=== PATIENT | female | born 1985 | race African-American/Black ===

== ENCOUNTER 2017-03-15 09:19 | Emergency (ER) | payer OTHER ==
[2017-03-15 09:22] VITALS: BP 139/90; PULSE 83; TEMP 97.8; BMI 33.0
[2017-03-15] MEDS ORDERED: IBUPROFEN 600 MG TABLET (FP) PO ONE (10:05)
--- NOTE | 2017-03-15 10:06 | PDOC ---
History of Present Illness - General Chief Complaint: Toothache Stated Complaint: TOOTHACHE Time Seen by Provider: 03/15/17 09:46 Exam Limitations: No Limitations - History of Present Illness Initial Comments: 03/15/17 10:02 c/o toothache upper right molar for one week no fever no chills no vomiting no allergies Timing/Duration: 24 hours Severity: mild Associated Symptoms: reports: denies symptoms Past History - Past Medical History Allergies/Adverse Reactions: Allergies Allergy/AdvReac Type Severity Reaction Status Date / Time No Known Drug Allergies Allergy Verified 03/15/17 09:22 Home Medications: Ambulatory Orders Penicillin V Potassium [Pen Vee K -] 250 mg PO QID #28 tablet 03/15/17 Anemia: No Asthma: No Cancer: No Cardiac Disorders: Yes CVA: No COPD: No CHF: No Dementia: No Diabetes: No GI Disorders: No Disorders: No HTN: No Hypercholesterolemia: No Liver Disease: No Seizures: No Thyroid Disease: No - Surgical History Abdominal Surgery: No Appendectomy: No Cardiac Surgery: No Cholecystectomy: No Lung Surgery: No Neurologic Surgery: No - Suicide/Smoking/Psychosocial Hx Smoking Status: No Smoking History: Never smoked Years of Tobacco Use: 2 Have you smoked in the past 12 months: Yes Number of Cigarettes Smoked Daily: 0 If you are a former smoker, when did you quit?: 12/16/13 'Breaking Loose' booklet given: 03/10/14 Hx Alcohol Use: No Drug/Substance Use Hx: No Substance Use Type: Alcohol Hx Substance Use Treatment: No Review of Systems - Review of Systems Able to Perform ROS?: Yes Is the patient limited Colombian proficient: No Constitutional: No: Symptoms Reported HEENTM: Yes: Symptoms Reported Respiratory: No: Symptoms reported Cardiac (ROS): No: Symptoms Reported ABD/GI: No: Symptoms Reported : No: Symptoms Reported Musculoskeletal: No: Symptoms Reported Integumentary: No: Symptoms Reported Neurological: No: Symptoms reported *Physical Exam - Vital Signs Last Vital Signs Temp Pulse Resp BP Pulse Ox 97.8 F 83 20 139/90 100 03/15/17 09:19 03/15/17 09:19 03/15/17 09:19 03/15/17 09:19 03/15/17 09:19 - Physical Exam General Appearance: Yes: Nourished, Appropriately Dressed HEENT: positive: EOMI, DAWNA, TMs Normal, Pharynx Normal, Other (right upper molar with redness, no abscess, ttt at the gum line ). negative: Scleral Icterus (R), Pharyngeal Erythema, Tonsillar Exudate, Tonsillar Erythema Neck: positive: Supple. negative: Lymphadenopathy (R), Lymphadenopathy (L) Respiratory/Chest: positive: Lungs Clear, Normal Breath Sounds. negative: Chest Tender Cardiovascular: positive: Regular Rhythm, Regular Rate Medical Decision Making - Medical Decision Making 03/15/17 16:42 cc: toothache pt states she has apt monday with the dentist will place on antibiotics warm salt water gargles motrin for pain soft foods all questions asked and answered pt agrees with the plan of care. *DC/Admit/Observation/Transfer Diagnosis at time of Disposition: Toothache - Discharge Dispostion Disposition: HOME Condition at time of disposition: Good - Prescriptions Prescriptions: Penicillin V Potassium [Pen Vee K -] 250 mg PO QID #28 tablet - Referrals Referrals: Charbel Gaytan MD [Primary Care Provider] - - Patient Instructions Additional Instructions: take the penvk as directed for 7 days gargle with warm salt water 4-5 times a day follow with your dentist - Post Discharge Activity
[2017-03-15] MEDS ORDERED: IBUPROFEN 400 MG TABLET (FP) PO ONE (10:10)
== END 2017-03-15 10:30 | disposition home or self-care (01) ==
LOC: JERFT 09:19
DX: K08.89 Other specified disorders of teeth and supporting structures (principal)
CPT/HCPCS: 99281-25

== ENCOUNTER 2017-12-21 10:12 | Emergency (ER) | payer OTHER ==
[2017-12-21 10:19] VITALS: BP 140/89; PULSE 89; TEMP 99.4; BMI 32.8
--- NOTE | 2017-12-21 11:21 | PDOC ---
History of Present Illness - General Chief Complaint: Pain, Acute Stated Complaint: HAND PAIN Time Seen by Provider: 12/21/17 11:06 History Source: Patient Exam Limitations: No Limitations - History of Present Illness Initial Comments: CHIEF COMPLAINT: 32 y/o afebrile female with PMH HTN c/o hand and foot pain for the past 2 days. HISTORY OF PRESENT ILLNESS: The patient states she was cleaning her house 3 days ago. The next day she woke up with joint pain in her hands and feet. SHe states she's taken tylenol and it goes away for a while. She has a headache because she's been crying from the pain. Vital signs on arrival are within normal limits. REVIEW OF SYSTEMS: GENERAL/CONSTITUTIONAL: No fever/chills. No weakness. No weight change. HEAD, EYES, EARS, NOSE AND THROAT: No change in vision. No ear pain or discharge. No sore throat. MUSCULOSKELETAL: +b/l hand and foot pain. No neck or back pain. SKIN: No rash or easy bruising. NEUROLOGIC: No headache, vertigo, loss of consciousness, or loss of sensation. PHYSICAL EXAM: GENERAL: The patient is awake, alert, and fully oriented, in no acute distress. SHe is well appearing and ambulatory. HEAD: Normal with no signs of trauma. ABDOMEN: Soft, non-distended, non-tender even to deep palpation, no hepatomegaly or splenomegaly, no masses. EXTREMITIES: Normal range of motion, no edema. Normal command center analyst strength b/l UEs. Full ROM of b/l hands, wrists and ankles. NEUROLOGICAL: Normal speech, normal gait. CN II-XII grossly intact. SKIN: Warm, dry, normal turgor, no rashes or lesions noted. Past History - Past Medical History Allergies/Adverse Reactions: Allergies Allergy/AdvReac Type Severity Reaction Status Date / Time No Known Drug Allergies Allergy Verified 11/14/17 18:12 Home Medications: Ambulatory Orders Losartan Potassium [Cozaar -] 25 mg PO DAILY 12/21/17 Warfarin Na [Coumadin] 2 mg PO ASDIR 12/21/17 Anemia: No Asthma: No Cancer: No Cardiac Disorders: Yes CVA: No COPD: No CHF: No Dementia: No Diabetes: No GI Disorders: No Disorders: No HTN: No Hypercholesterolemia: No Liver Disease: No Seizures: No Thyroid Disease: No - Surgical History Abdominal Surgery: No Appendectomy: No Cardiac Surgery: No Cholecystectomy: No Lung Surgery: No Neurologic Surgery: No - Suicide/Smoking/Psychosocial Hx Smoking Status: No Smoking History: Never smoked Years of Tobacco Use: 2 Have you smoked in the past 12 months: Yes Number of Cigarettes Smoked Daily: 0 If you are a former smoker, when did you quit?: 12/16/13 'Breaking Loose' booklet given: 03/10/14 Hx Alcohol Use: No Drug/Substance Use Hx: No Substance Use Type: Alcohol Hx Substance Use Treatment: No *Physical Exam - Vital Signs Last Vital Signs Temp Pulse Resp BP Pulse Ox 99.4 F 89 18 140/89 99 12/21/17 10:16 12/21/17 10:16 12/21/17 10:16 12/21/17 10:16 12/21/17 10:16 Medical Decision Making - Medical Decision Making A/P: 32 y/o female with b/l hand and foot pain. Suspect arthritis. Will check HCG and give PO ibuprofen. Suggested she take Ibuprofen every 6 hours with food and f/u with Dr. rae and hcg - negative Will give IM toradol The patient verbalizes understanding of all instructions, has no further questions and is awaiting discharge. *DC/Admit/Observation/Transfer Diagnosis at time of Disposition: Arthritis - Discharge Dispostion Disposition: HOME Condition at time of disposition: Good - Referrals Referrals: Charbel Rae MD [Primary Care Provider] - Call tomorrow Tomás Mathur MD [Staff Physician] - - Patient Instructions Printed Discharge Instructions: DI for Osteoarthritis Additional Instructions: Discharge Instructions: -You most likely have arthritis -Take over the counter 600mg of ibuprofen every 6 hours with food for pain/ swelling -Avoid repetitive movements -Follow up with Dr. Rae tomorrow - Post Discharge Activity
[2017-12-21] MEDS ORDERED: KETOROLAC TROMETHAMINE 60 MG/2 ML VIAL IM ONE (12:04)
[2017-12-21] MEDS ORDERED: KETOROLAC TROMETHAMINE 60 MG/2 ML VIAL ONE (12:12)
== END 2017-12-21 12:21 | disposition home or self-care (01) ==
LOC: JERFT 10:12
PROC: 3E0233Z Introduction of Anti-inflammatory into Muscle, Percutaneous Approach (ICD-10-PCS; principal; 2017-12-21)
DX: M19.90 Unspecified osteoarthritis, unspecified site (principal); I10 Essential (primary) hypertension; Z87.891 Personal history of nicotine dependence
CPT/HCPCS: 84703; 99281-25

== ENCOUNTER 2018-01-05 22:40 | Emergency (ER) | payer OTHER ==
--- NOTE | 2018-01-05 22:43 | PDOC ---
History of Present Illness - General Stated Complaint: ABD PAIN Time Seen by Provider: 01/05/18 22:43 - History of Present Illness Initial Comments: 01/05/18 23:12 Ms. Cadena is a 32 yo female w/ no significant pmh who presents for evaluation of 1 day history of return of yohannes hand and foot "needle like" pain. Patient reports she initially had this a few weeks ago and was told it was possibly arthritis and that symptoms resolved after a medicine (chart review revealed toradol) IM. Symptoms returned yesterday, prompting her presentation. Ms. Cadena further reports she has had increased urinary pain/pressure upon urination lately. The patient denies chest pain, shortness of breath, headache and dizziness. Denies fever, chills, nausea, vomit, diarrhea and constipation. Denies frequency , urgency and hematuria. Allergies: NKDA Past History - Past Medical History Allergies/Adverse Reactions: Allergies Allergy/AdvReac Type Severity Reaction Status Date / Time No Known Drug Allergies Allergy Verified 11/14/17 18:12 Home Medications: Ambulatory Orders Losartan Potassium [Cozaar -] 25 mg PO DAILY 12/21/17 Warfarin Na [Coumadin] 2 mg PO ASDIR 12/21/17 Anemia: No Asthma: No Cancer: No Cardiac Disorders: Yes CVA: No COPD: No CHF: No Dementia: No Diabetes: No GI Disorders: No Disorders: No HTN: No Hypercholesterolemia: No Liver Disease: No Seizures: No Thyroid Disease: No - Surgical History Abdominal Surgery: No Appendectomy: No Cardiac Surgery: No Cholecystectomy: No Lung Surgery: No Neurologic Surgery: No - Suicide/Smoking/Psychosocial Hx Smoking Status: No Smoking History: Never smoked Years of Tobacco Use: 2 Have you smoked in the past 12 months: Yes Number of Cigarettes Smoked Daily: 0 If you are a former smoker, when did you quit?: 12/16/13 'Breaking Loose' booklet given: 03/10/14 Hx Alcohol Use: No Drug/Substance Use Hx: No Substance Use Type: Alcohol Hx Substance Use Treatment: No Review of Systems - Review of Systems Comments:: 01/05/18 23:17 GENERAL/CONSTITUTIONAL: No fever or chills. No weakness. HEAD, EYES, EARS, NOSE AND THROAT: No change in vision. No ear pain or discharge. No sore throat. CARDIOVASCULAR: No chest pain or shortness of breath RESPIRATORY: No cough, wheezing, or hemoptysis. GASTROINTESTINAL: No nausea, vomiting, diarrhea or constipation. GENITOURINARY: No dysuria, frequency, or change in urination. MUSCULOSKELETAL: +Yohannes upper and lower extremity pain as described. No neck or back pain. SKIN: No rash NEUROLOGIC: No headache, vertigo, loss of consciousness, or change in strength/ sensation. ENDOCRINE: No increased thirst. No abnormal weight change HEMATOLOGIC/LYMPHATIC: No anemia, easy bleeding, or history of blood clots. ALLERGIC/IMMUNOLOGIC: No hives or skin allergy. *Physical Exam - Physical Exam Comments: 01/05/18 23:18 GENERAL: Awake, alert, and fully oriented, in no acute distress HEAD: No signs of trauma, normocephalic, atraumatic EYES: PERRLA, EOMI, sclera anicteric, conjunctiva clear ENT: Auricles normal inspection, hearing grossly normal, nares patent, oropharynx clear without exudates. Moist mucosa NECK: Normal ROM, supple, no lymphadenopathy, JVD, or masses LUNGS: No distress, speaks full sentences, clear to auscultation bilaterally HEART: Regular rate and rhythm, normal S1 and S2, no murmurs, rubs or gallops, peripheral pulses normal and equal bilaterally. ABDOMEN: Soft, nontender, normoactive bowel sounds. No guarding, no rebound. No masses EXTREMITIES: Normal inspection, Normal range of motion, no edema. No clubbing or cyanosis. NEUROLOGICAL: Cranial nerves II through XII grossly intact. Normal speech, normal gait, no focal sensorimotor deficits SKIN: Warm, Dry, normal turgor, no rashes or lesions noted. Medical Decision Making - Medical Decision Making 01/05/18 23:42 Ms. Cadena is a 32 yo female w/ pmh as described who presents for evaluation of non-specific extremity pain with urinary symptoms. CBC/CMP and urinary labs sent for evaluation. Patient given toradol for pain control. 01/05/18 23:44 Patient currently pending laboratory evaluation. Patient signed out to Dr. Mueller for further evaluation. *DC/Admit/Observation/Transfer Diagnosis at time of Disposition: Extremity pain Qualifiers: Extremity pain location: unspecified extremity Qualified Code(s): M79.609 - Pain in unspecified limb - Referrals Referrals: Lukas,Charbel N., MD [Primary Care Provider] - - Patient Instructions - Post Discharge Activity
[2018-01-05 22:45] VITALS: PULSE 86; TEMP 98.8; BMI 32.3
--- NOTE | 2018-01-05 23:01 | PDOC ---
Attending Attestation - HPI HPI: 01/05/18 23:52 The patient is a 32 year old female with a significant PMH of hypertension who presents to the emergency department with bilateral foot pain. The patient reports that she was seen in the ED for similar complaints. She states that she was given a shot for pain that helped her pain for about 2 days before her pain returned. The patient denies any sick contact. She states that her lmp was about 1 month ago. The patient endorses some pressure when urinating. She states that she has 7 year old twin boys at home (delivered via ). The patient denies any other symptoms. She denies any fever, chills, nausea, vomit, diarrhea,constipation or other urinary symptoms. She denies any chest pain, shortness of breath, headache and dizziness. The patient denies any other complaints. PCP: Dr. Gaytan - Physicial Exam PE: 01/05/18 23:52 GENERAL: Awake, alert, and fully oriented, in no acute distress HEAD: No signs of trauma EYES: PERRLA, EOMI, sclera anicteric, conjunctiva clear ENT: (+)earwax bilaterally. Auricles normal inspection, hearing grossly normal, nares patent, oropharynx clear without exudates. Moist mucosa NECK: Normal ROM, supple, no lymphadenopathy, JVD, or masses LUNGS: Breath sounds equal, clear to auscultation bilaterally. No wheezes, and no crackles HEART: Regular rate and rhythm, normal S1 and S2, no murmurs, rubs or gallops ABDOMEN: Soft, nontender, normoactive bowel sounds. No guarding, no rebound. No masses EXTREMITIES: Normal range of motion, no edema. No clubbing or cyanosis. No cords, erythema, or tenderness NEUROLOGICAL: Cranial nerves II through XII grossly intact. Normal speech, normal gait SKIN: Warm, Dry, normal turgor, no rashes or lesions noted. Documentation prepared by Faby Sparks, acting as pediatrician/medical doctor for Danuta Desouza MD. <Faby Sparks - Last Filed: 01/05/18 23:52> - Resident Resident Name: Oz Botello - ED Attending Attestation I have performed the following: I have examined & evaluated the patient, The case was reviewed & discussed with the resident, I agree w/resident's findings & plan - Medical Decision Making 01/06/18 19:37 Pt will be treated for UTI. 01/06/18 19:37 She is slightly anemic. <Danuta Desouza - Last Filed: 01/06/18 19:37>
[2018-01-05 23:35] LABS: URINE APPEARANCE CLEAR; URINE BILIRUBIN NEGATIVE (<2.0 mg/dL); URINE COLOR AMBER; URINE GLUCOSE (UA) NEGATIVE (NEGATIVE); URINE KETONE NEGATIVE (NEGATIVE); URINE LEUK ESTERASE NEGATIVE (NEGATIVE); URINE NITRITE POSITIVE (NEGATIVE); URINE UROBILINOGEN 4.0 E.U/dl mg/dL (0.2-1.0)
[2018-01-05 23:37] LABS: URINE PROTEIN 3+ (NEGATIVE)
[2018-01-05 23:42] LABS: EPI CELLS FEW /HPF (FEW); URINE MUCUS FEW
[2018-01-05] MEDS ORDERED: KETOROLAC TROMETHAMINE 15 MG/ML VIAL IM ONE (23:43)
[2018-01-06 00:52] LABS: BASO % 0.5 % (0-2.0); EOS % 1.7 % (0-4.5); HEMATOCRIT 28.7 % (32.4-45.2); HEMOGLOBIN 9.7 GM/dL (10.7-15.3); LYMPH % 15.8 % (8-40); MCHC 33.7 g/dl (32.0-36.0); MEAN CELL VOLUME 91.9 fl (80-96); MEAN PLT VOLUME 7.4 fl (7.5-11.1); MONO % 7.3 % (3.8-10.2); NEUT % 74.7 % (42.8-82.8); PLATELET COUNT 241 K/MM3 (134-434); RBC 3.12 M/mm3 (3.60-5.2); RDW 13.2 % (11.6-15.6)
[2018-01-06 01:47] LABS: ALBUMIN 3.4 g/dl (3.4-5.0); ALK PHOS 67 U/L (45-117); ANION GAP 7 MMOL/L (8-16); BILIRUBIN,TOTAL 0.2 mg/dL (0.2-1); BLOOD UREA NITROGEN 17 mg/dL (7-18); CALCIUM 8.5 mg/dL (8.5-10.1); CHLORIDE 105 mmol/L (98-107); CO2 24 mmol/L (21-32); CREATININE 0.9 mg/dL (0.55-1.3); GLUCOSE,RANDOM 96 mg/dL (74-106); POTASSIUM 3.4 mmol/L (3.5-5.1); SGOT/AST 26 U/L (15-37); SGPT/ALT 26 U/L (13-61); SODIUM 136 mmol/L (136-145); TOT PROT 9.2 g/dl (6.4-8.2)
--- NOTE | 2018-01-06 02:05 | PDOC ---
*Physical Exam - Vital Signs Last Vital Signs Temp Pulse Resp BP Pulse Ox 98.8 F 86 18 138/101 100 01/05/18 22:42 01/05/18 22:42 01/05/18 22:42 01/05/18 22:42 01/05/18 22:42 ED Treatment Course - LABORATORY CBC & Chemistry Diagram: 01/06/18 00:43 01/06/18 00:43 - ADDITIONAL ORDERS Additional order review: Laboratory Results 01/06/18 01/05/18 01/05/18 00:43 23:13 23:13 Sodium 136 Potassium 3.4 L Chloride 105 Carbon Dioxide 24 Anion Gap 7 L BUN 17 Creatinine 0.9 Creat Clearance w eGFR > 60 Random Glucose 96 Calcium 8.5 Total Bilirubin 0.2 AST 26 ALT 26 Alkaline Phosphatase 67 Total Protein 9.2 H Albumin 3.4 Urine Color Candis Urine Appearance Clear Urine pH 6.0 Ur Specific Delong 1.031 Urine Protein 3+ H D Urine Glucose (UA) Negative Urine Ketones Negative Urine Blood 3+ H Urine Nitrite Positive Urine Bilirubin Negative Urine Urobilinogen 4.0 e.u/dl H Ur Leukocyte Esterase Negative Urine WBC (Auto) 9 Urine RBC (Auto) 743 Ur Epithelial Cells Few Urine Mucus Few Urine HCG, Qual Negative 01/06/18 00:43 RBC 3.12 L MCV 91.9 MCHC 33.7 RDW 13.2 MPV 7.4 L D Neutrophils % 74.7 D Lymphocytes % 15.8 D Monocytes % 7.3 Eosinophils % 1.7 Basophils % 0.5 - Medications Given in the ED: ED Medications Discontinued Medications Generic Name Dose Route Start Last Admin Trade Name Freq PRN Reason Stop Dose Admin Ketorolac Tromethamine 15 mg 01/05/18 23:43 01/06/18 00:38 Toradol Injection - IM 01/05/18 23:44 15 mg ONCE ONE Administration Medical Decision Making - Medical Decision Making 32 year old female signed out to me with sharp right foot pain, atrauamtic, and no sign of deformity. Perera better with IM analgesics in our ER. UA demonstrating UTI. Will DC with Keflex and instructions to followup with her PCP. 01/06/18 02:11 *DC/Admit/Observation/Transfer Diagnosis at time of Disposition: Extremity pain Qualifiers: Extremity pain location: unspecified extremity Qualified Code(s): M79.609 - Pain in unspecified limb UTI (urinary tract infection) Qualifiers: Urinary tract infection type: acute cystitis Hematuria presence: without hematuria Qualified Code(s): N30.00 - Acute cystitis without hematuria - Discharge Dispostion Disposition: HOME Condition at time of disposition: Improved Decision to Admit order: No - Referrals Referrals: Charbel Gaytan MD [Primary Care Provider] - - Patient Instructions Printed Discharge Instructions: DI for Urinary Tract Infection (UTI) Additional Instructions: Please take your antibiotics as prescribed. Please use Tylenol and Motrin for you pain at home. Please follow up with your PCP on Monday. Please return to the ED if you have any new or worsening symptoms. - Post Discharge Activity
[2018-01-06] MEDS ORDERED: CEPHALEXIN MONOHYDRATE 500 MG CAPSULE (UD) PO ONE (02:06)
[2018-01-06] MEDS ORDERED: CEPHALEXIN MONOHYDRATE 500 MG CAPSULE (UD) ONE (02:14)
[2018-01-06 02:24] VITALS: BP 131/86
== END 2018-01-06 02:23 | disposition home or self-care (01) ==
LOC: JER 22:40
PROC: 3E0233Z Introduction of Anti-inflammatory into Muscle, Percutaneous Approach (ICD-10-PCS; principal; 2018-01-05)
DX: N30.00 Acute cystitis without hematuria (principal); M79.641 Pain in right hand; M79.671 Pain in right foot; M79.675 Pain in left toe(s); H61.23 Impacted cerumen, bilateral
CPT/HCPCS: 36415; 80053; 81003; 81015; 84443; 84703; 85025; 87086; 96372; 99281-25

== ENCOUNTER 2018-02-03 09:09 | Emergency (ER) | payer OTHER ==
[2018-02-03 09:57] VITALS: BMI 30.9
[2018-02-03] MEDS ORDERED: ACETAMINOPHEN 325 MG TABLET (FP) PO ONE (10:01)
[2018-02-03] MEDS ORDERED: LIDOCAINE 5% TOPICAL PATCH TP ONE (10:01)
[2018-02-03] MEDS ORDERED: morphine CARPU-JECT 4 MG/1 ML DISP.SYRIN IVPUSH ONE (10:30)
[2018-02-03] MEDS ORDERED: CYCLOBENZAPRINE HCL 5 MG TABLET PO ONE (10:30)
--- NOTE | 2018-02-03 10:32 | PDOC ---
History of Present Illness - General Chief Complaint: Back Pain Stated Complaint: BACK PAIN Time Seen by Provider: 02/03/18 09:27 History Source: Patient Exam Limitations: No Limitations - History of Present Illness Initial Comments: 02/03/18 10:50 [place] 32 YOF with h/o Valvular heart disease, antiphospholipid syndrome, DVT, on coumadin, Lambert Eaton syndrome, HTN presenting with upper Back pain and hip/thigh pains x 2 days, beginning yesterday morning. No trauma. She has been bending down and cleaning the house while caring for her twins x 2 weeks. Went to PMD yesterday. Dr Gaytan, told to take tylenol with minimal relief. +sore throat, dry mouth, but tolerating PO intake. No cough or congestion, f/c. No paresthesias. +weakness in her legs 2/2 pain. No urinary retention or incontinence, no AP, n/v/d, sob, cp, syncope. No falls or trauma. No recent infections or prodromal sx, no urinary sx, fever or chills. Never had similar symptoms previously No etoh, smoking or drugs PSH: C sections. 02/03/18 14:48 Past History - Past Medical History Allergies/Adverse Reactions: Allergies Allergy/AdvReac Type Severity Reaction Status Date / Time No Known Drug Allergies Allergy Verified 02/03/18 09:43 Home Medications: Ambulatory Orders Losartan Potassium [Cozaar -] 25 mg PO DAILY 12/21/17 Warfarin Na [Coumadin] 2 mg PO ASDIR 12/21/17 Cephalexin [Keflex] 500 mg PO TID #21 capsule 01/06/18 Cephalexin Monohydrate [Keflex -] 500 mg PO BID #14 capsule 02/03/18 Lidocaine 5% Patch [Lidoderm Patch -] 1 patch TP DAILY PRN #7 patch 02/03/18 Anemia: No Asthma: No Cancer: No Cardiac Disorders: Yes CVA: No COPD: No CHF: No Dementia: No Diabetes: No GI Disorders: No Disorders: No HTN: No Hypercholesterolemia: No Liver Disease: No Seizures: No Thyroid Disease: No - Surgical History Abdominal Surgery: No Appendectomy: No Cardiac Surgery: No Cholecystectomy: No Lung Surgery: No Neurologic Surgery: No - Suicide/Smoking/Psychosocial Hx Smoking Status: No Smoking History: Never smoked Years of Tobacco Use: 2 Have you smoked in the past 12 months: Yes Number of Cigarettes Smoked Daily: 0 If you are a former smoker, when did you quit?: 12/16/13 Information on smoking cessation initiated: No 'Breaking Loose' booklet given: 03/10/14 Hx Alcohol Use: No Drug/Substance Use Hx: No Substance Use Type: Alcohol Hx Substance Use Treatment: No Review of Systems - Review of Systems Able to Perform ROS?: Yes Comments:: 02/03/18 10:44 GENERAL/CONSTITUTIONAL: No fever or chills. No weakness. no sweats. HEAD, EYES, EARS, NOSE AND THROAT: No change in vision or hearing. No ear pain or discharge. +sore throat, +dry mouth. No mouth pain. No difficulty swallowing. No congestion. CARDIOVASCULAR: No chest pain or palpitations, syncope or edema. RESPIRATORY: No SOB, cough, wheezing, or hemoptysis. GASTROINTESTINAL No nausea/vomiting. No diarrhea or constipation. No bloody stools. GENITOURINARY: No hematuria, dysuria, frequency, urgency or other changes. MUSCULOSKELETAL: +joint and pain. +neck or back pain. +leg/knee pain. SKIN: No rash or changes in skin color or lesions. NEUROLOGIC: No headache, vertigo, loss of consciousness, or change in strength/ sensation. No gait instability. HEMATOLOGIC/LYMPHATIC: No anemia, easy bruising/bleeding. ALLERGIC/IMMUNOLOGIC: No allergies All other systems reviewed and negative, or as documented in HPI. *Physical Exam - Vital Signs Last Vital Signs Temp Pulse Resp BP Pulse Ox 117 H 18 125/90 100 02/03/18 09:09 02/03/18 09:09 02/03/18 09:09 02/03/18 09:09 - Physical Exam Comments: 02/03/18 10:45 General: awake and alert, mild distress 2/2 pain. HEENT: NCAT, PERRL, EOMI, baseline proptotic eyes, clear conjunctiva, anicteric , dry mucus membranes, clear oropharynx, no oral lesions.. normal uvula, normal phonation. no tonsillar hypertrophy or erythema. Neck: neck supple, FROM. +cervical TTP, paravertebral. Resp: CTAB, normal and even respirations, no respiratory distress CVS: tachycardic. no murmurs, 2+ peripheral pulses throughout, no peripheral edema Abdomen: soft, NTND, no peritoneal signs. Back: nontender, normal inspection and ROM MSK: no edema, OLIVER x4. No clubbing or cyanosis. normal bulk and tone. + cervical neck TTP, bilateral scapula and upper thoracic back/cervical region. + bilateral hip tenderness, left knee ttp, no crepitus or overlying skin changes, ROM limited 2/2 pain. Neuro: alert, oriented appropriately; no focal neurologic deficits. 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 SILT grossly normal. Skin: warm and well perfused, cap refill <2 sec, normal color 02/03/18 14:49 02/03/18 15:06 ED Treatment Course - LABORATORY CBC & Chemistry Diagram: 02/03/18 11:40 02/03/18 11:40 - RADIOLOGY Radiology Studies Ordered: Category Date Time Status CERVICAL SPINE CT W/O CONTR [CT] Stat CT Scan 02/03/18 10:29 Ordered CHEST PA & LAT [RAD] Stat Radiology 02/03/18 10:29 Ordered KNEE 3 POS-LEFT [RAD] Stat Radiology 02/03/18 10:31 Ordered PELVIS [RAD] Stat Radiology 02/03/18 10:31 Ordered Medical Decision Making - Medical Decision Making 02/03/18 10:50 Vitals noted for tachycardia noted, likely 2/2 pain. no fever rectally, otherwise normal and normotensive. DDx back pain: back strain, lumbago, spinal stenosis. Muscle spasm. Cervical and Lumbar radiculopathy. Cervical strain. Msk strain. Clinically doubt based on exam and clinical history: cord compression or cauda equina, with low suspicion and no red flag sx such as fevers, IVDU, lumbar procedures, urinary/stool incontinence/retention, neurologic deficits or changes. imaging of pelvis and hip, CT c spine looking for spinal stenosis or degenerative disease, due to significant pain. basic labs and lytes wnl, remarkable for elevated Cr to 1.7, changed from prior. INR therapeutic ~3.7. Xray pelvis, hip and left knee negative for bony abnormalities. strep test_Positive, given dose of Bicillin IM shot. interventions in the ED: analgesia, IVF, topical lidocaine and muscle relaxer and reassessment. UA with UTI, treat with keflex x 7 days, abx sent to pharmacy. minimal urinary sx, but positive, f/u urine cultures. vitals improved, tachycardia improving with adequate hydration, aurelia PO without difficulty. ambulatory w/o difficulties. spoke with Dr. Gaytan at 230pm, discussed results including abnormal Cr. amenable to discharge, otc tylenol only; no muscle relaxants, opioids or nsaids due to medical history and now elevated Cr, which can be followed and rechecked by pmd in 2 days. Pt to be discharged in stable condition. Patient and family made aware of impression and plan, return precautions discussed (including but not limited to worsening pain or symptoms), fevers, or signs of infection, chest pain, respiratory distress, inability to tolerate oral intake, dehydration, syncope, or neurologic changes). Follow up with PMD as recommended, follow up information provided, take medications as instructed for duration of time. continue with supportive care, avoid triggers and precipitants. All questions answered to patient's satisfaction and expressed understanding and comfort with this. 02/04/18 09:30 *DC/Admit/Observation/Transfer Diagnosis at time of Disposition: Muscle pain, Creatinine elevation, UTI (urinary tract infection), Strep pharyngitis - Discharge Dispostion Disposition: HOME Condition at time of disposition: Good Decision to Admit order: No - Prescriptions Prescriptions: Cephalexin Monohydrate [Keflex -] 500 mg PO BID #14 capsule Lidocaine 5% Patch [Lidoderm Patch -] 1 patch TP DAILY PRN #7 patch PRN Reason: Muscle Spasms - Referrals Referrals: Charbel Gaytan MD [Primary Care Provider] - - Patient Instructions Printed Discharge Instructions: DI for Strep Throat, DI for Urinary Tract Infection (UTI), DI for Muscle Strain, DI for Cervical Muscle Strain, DI for Viral Pharyngitis, Renal (Kidney) Disease Diet -- For People Not on Dialysis Additional Instructions: your imaging results are normal including X rays your lab work revealed elevated kidney function, which is changed from prior. stay well hydrated and follow up check with your primary doctor, Dr. Gaytan, who we spoke to over the phone. take tylenol every 6 hours as needed for pain. lidoderm patch to the area of pain as needed you also have a urinary tract infection, take Keflex twice a day x 7 days with food. return if worsening symptoms including pain, signs of infection, chest pain, respiratory distress, vomiting, neurologic changes or passing out. minimize significant movements or physical activity or strenuous movements. avoid motrin/aleve/advil as that can cause kidney failure and your kidney function needs recheck as outpatient you also have strep throat, take respiratory precautions, wash your hands and stay well hydrated, salt water gargles and humidifier. wear mask, minimize spreading of infection. follow up with Dr Gaytan on Monday 02/05 - Post Discharge Activity Forms/Work/School Notes: Back to Work
[2018-02-03] MEDS ORDERED: SODIUM CHLORIDE 0.9% 500 ML INFUS.BAG IV ONE ×2 (10:33→15:28)
[2018-02-03] MEDS ORDERED: morphine SULFATE 4 MG/ML VIAL ONE (11:20)
[2018-02-03] MEDS ORDERED: CYCLOBENZAPRINE HCL 10 MG TABLET (FP) ONE (11:20)
[2018-02-03] MEDS ORDERED: ACETAMINOPHEN 325 MG TABLET (FP) ONE (11:20)
[2018-02-03] MEDS ORDERED: LIDOCAINE 5% TOPICAL PATCH ONE (11:21)
[2018-02-03 12:03] LABS: BASO % 0.2 % (0-2.0); HEMATOCRIT 27.2 % (32.4-45.2); INR 3.77 (0.83-1.09); MCH 30.1 pg (25.7-33.7); MCHC 32.9 g/dl (32.0-36.0); MEAN CELL VOLUME 91.5 fl (80-96); MEAN PLT VOLUME 7.6 fl (7.5-11.1); MONO % 6.1 % (3.8-10.2); NEUT % 82.7 % (42.8-82.8); PLATELET COUNT 247 K/MM3 (134-434); PROTHROMBIN TIME (PATIENT) 45.1 SEC (9.7-13.0); RBC 2.98 M/mm3 (3.60-5.2); RDW 13.5 % (11.6-15.6); WHITE BLOOD COUNT 7.6 K/mm3 (4.0-10.0)
[2018-02-03 13:02] LABS: ALBUMIN 2.8 g/dl (3.4-5.0); ALK PHOS 61 U/L (45-117); ANION GAP 10 MMOL/L (8-16); BILIRUBIN,TOTAL 0.4 mg/dL (0.2-1); BLOOD UREA NITROGEN 37 mg/dL (7-18); CALCIUM 8.3 mg/dL (8.5-10.1); CHLORIDE 104 mmol/L (98-107); CO2 22 mmol/L (21-32); CREATININE 1.7 mg/dL (0.55-1.3); GLUCOSE,RANDOM 92 mg/dL (74-106); POTASSIUM 3.6 mmol/L (3.5-5.1); SGOT/AST 16 U/L (15-37); SGPT/ALT 11 U/L (13-61); SODIUM 136 mmol/L (136-145); TOT PROT 8.7 g/dl (6.4-8.2)
[2018-02-03 14:55] LABS: URINE APPEARANCE CLOUDY; URINE BILIRUBIN NEGATIVE (<2.0 mg/dL); URINE COLOR DKYELLOW; URINE GLUCOSE (UA) NEGATIVE (NEGATIVE); URINE KETONE TRACE (NEGATIVE); URINE LEUK ESTERASE TRACE (NEGATIVE); URINE NITRITE NEGATIVE (NEGATIVE); URINE PROTEIN 2+ (NEGATIVE); URINE UROBILINOGEN NEGATIVE mg/dL (0.2-1.0)
[2018-02-03 15:10] LABS: EPI CELLS MANY /HPF (FEW); GRANULAR CASTS 4 /lpf; URINE BACTERIA RARE /hpf (NONE SEEN); URINE HYALINE CAST 6 /lpf
[2018-02-03 15:18] VITALS: TEMP 98.7
[2018-02-03] MEDS ORDERED: CEPHALEXIN MONOHYDRATE 500 MG CAPSULE (UD) PO ONE (15:31)
[2018-02-03 16:33] VITALS: BP 117/84; PULSE 102
[2018-02-03] MEDS ORDERED: CEPHALEXIN MONOHYDRATE 500 MG CAPSULE (UD) ONE (16:55)
[2018-02-03] MEDS ORDERED: PENICILLIN G BENZATHINE 1,200,000 UNIT/2 ML PFS IM ONE (17:00)
[2018-02-03] MEDS ORDERED: PENICILLIN G BENZATHINE 2,400,000 UNIT/4 ML PFS ONE (17:17)
[2018-02-03] MEDS ORDERED: LIDOCAINE PATCH REMOVAL MC SCH (22:00)
== END 2018-02-03 19:20 | disposition home or self-care (01) ==
LOC: JER 09:09
DX: J02.0 Streptococcal pharyngitis (principal); B95.0 Streptococcus, group A, as the cause of diseases classified elsewhere; M79.10 Myalgia, unspecified site; R74.8 Abnormal levels of other serum enzymes
CPT/HCPCS: 36415; 71046-TC-FY; 72170-TC-FY; 73562-TC-LT-FY; 80053; 81003; 81015; 84703; 85025; 85610; 87070; 87430; 96372; 99282-25

== ENCOUNTER 2020-04-03 02:11 | Emergency (ER) | payer OTHER ==
[2020-04-03 02:41] VITALS: BMI 29.2
[2020-04-03] MEDS ORDERED: ACETAMINOPHEN 1000 MG/100 ML VIAL (NON FORMULARY) IVPB ONE (03:45)
[2020-04-03] MEDS ORDERED: LACTATED RINGERS SOLUTION 1,000 ML/1,000 ML INFUS.BAG IV STA (03:45)
[2020-04-03] MEDS ORDERED: ACETAMINOPHEN INJECTION 100 ML IVPB ONE (03:55)
[2020-04-03 04:07] LABS: HEMATOCRIT 28.8 % (32.4-45.2); HEMOGLOBIN 9.7 GM/dL (10.7-15.3); LYMPH % 10.9 % (8-40); MCH 30.9 pg (25.7-33.7); MCHC 33.5 g/dl (32.0-36.0); MEAN CELL VOLUME 92.3 fl (80-96); MEAN PLT VOLUME 7.8 fl (7.5-11.1); MONO % 5.9 % (3.8-10.2); NEUT % 79.2 % (42.8-82.8); PLATELET COUNT 363 K/MM3 (134-434); RBC 3.12 M/mm3 (3.60-5.2); RDW 12.5 % (11.6-15.6)
[2020-04-03 04:20] LABS: INR 3.85 (0.83-1.09); PROTHROMBIN TIME (PATIENT) 45.5 SEC (9.7-13.0)
[2020-04-03 04:22] LABS: ACTIVATED PTT 34.7 SECONDS (25.2-36.5)
[2020-04-03 04:26] LABS: POTASSIUM 3.6 mmol/L (3.5-5.1)
[2020-04-03 04:29] LABS: BLOOD UREA NITROGEN 27.9 mg/dL (7-18); CALCIUM 8.8 mg/dL (8.5-10.1)
[2020-04-03 04:32] LABS: CREATININE 1.4 mg/dL (0.55-1.3)
[2020-04-03 04:34] LABS: BILIRUBIN,TOTAL 0.3 mg/dL (0.2-1); TOT PROT 7.5 g/dl (6.4-8.2)
[2020-04-03] MEDS ORDERED: KETOROLAC TROMETHAMINE 30 MG/1 ML VIAL IVPUSH ONE (04:39)
[2020-04-03] MEDS ORDERED: KETOROLAC TROMETHAMINE 15 MG/ML VIAL ONE (04:41)
[2020-04-03 04:54] LABS: THROAT:GRP A STREP ANTIGEN Positive (Negative)
[2020-04-03] MEDS ORDERED: CYCLOBENZAPRINE HCL 5 MG TABLET PO ONE (05:15)
[2020-04-03] MEDS ORDERED: guaiFENesin 200 MG/10 ML 10 ML UNIT-DOSE CUPS PO ONE (06:07)
[2020-04-03] MEDS ORDERED: guaiFENesin/D-METHORPHAN HB 10 ML UNIT-DOSE CUPS ONE (06:09)
[2020-04-03 06:26] VITALS: BP 127/99; PULSE 103; TEMP 98.3
== END 2020-04-03 06:44 | disposition home or self-care (01) ==
LOC: JER 02:11
PROC: 3E033NZ Introduction of Analgesics, Hypnotics, Sedatives into Peripheral Vein, Percutaneous Approach (ICD-10-PCS; principal; 2020-04-03)
PROC: 3E0333Z Introduction of Anti-inflammatory into Peripheral Vein, Percutaneous Approach (ICD-10-PCS; 2020-04-03)
PROC: 3E0337Z Introduction of Electrolytic and Water Balance Substance into Peripheral Vein, Percutaneous Approach (ICD-10-PCS; 2020-04-03)
DX: J02.0 Streptococcal pharyngitis (principal)
CPT/HCPCS: 36415; 80053; 84703; 85025; 85610; 85730; 87880; 93005; 93010; 99285-25; C9803; J0131; U0003

== ENCOUNTER 2020-07-21 15:56 | Observation (INO) | payer OTHER ==
[2020-07-21 18:39] LABS: BASO % 0.7 % (0-2.0); EOS % 1.8 % (0-4.5); HEMATOCRIT 27.5 % (32.4-45.2); HEMOGLOBIN 9.2 GM/dL (10.7-15.3); LYMPH % 21.4 % (8-40); MCH 31.8 pg (25.7-33.7); MCHC 33.4 g/dl (32.0-36.0); MEAN CELL VOLUME 95.1 fl (80-96); MONO % 6.3 % (3.8-10.2); NEUT % 69.8 % (42.8-82.8); PLATELET COUNT 273 K/MM3 (134-434); RDW 13.7 % (11.6-15.6); WHITE BLOOD COUNT 3.8 K/mm3 (4.0-10.0)
[2020-07-21 18:48] LABS: EPI CELLS >36 /uL (0-25.1); HYALINE CASTS 5 /uL (0-3.1); URINE APPEARANCE CLEAR; URINE BACTERIA 298 /uL (0-1359); URINE BILIRUBIN NEGATIVE (NEGATIVE); URINE COLOR YELLOW; URINE GLUCOSE (UA) NEGATIVE (NEGATIVE); URINE KETONE NEGATIVE (NEGATIVE); URINE LEUK ESTERASE NEGATIVE (NEGATIVE); URINE NITRITE NEGATIVE (NEGATIVE); URINE PROTEIN 3+ (NEGATIVE); URINE RBC 737 /uL (0-23.9); URINE UROBILINOGEN 0.2 mg/dL (0.2-1.0)
[2020-07-21 18:57] LABS: POTASSIUM 3.3 mmol/L (3.5-5.1)
[2020-07-21 18:59] LABS: ALBUMIN 2.6 g/dl (3.4-5.0); BLOOD UREA NITROGEN 28.3 mg/dL (7-18); CALCIUM 8.2 mg/dL (8.5-10.1)
[2020-07-21 19:02] LABS: CREATININE 0.8 mg/dL (0.55-1.3)
[2020-07-21 19:04] LABS: BILIRUBIN,TOTAL 0.2 mg/dL (0.2-1); TOT PROT 5.6 g/dl (6.4-8.2)
[2020-07-22] MEDS ORDERED: POTASSIUM CHLORIDE TABS 20 MEQ TABLET.ER (FP) PO ONE ×2 (00:20→04:45)
[2020-07-22 04:28] VITALS: BMI 28.3
[2020-07-22 08:44] LABS: BASO % 0.5 % (0-2.0); EOS % 1.7 % (0-4.5); HEMATOCRIT 26.5 % (32.4-45.2); LYMPH % 31.8 % (8-40); MCH 32.2 pg (25.7-33.7); MCHC 33.9 g/dl (32.0-36.0); MEAN CELL VOLUME 94.8 fl (80-96); MONO % 7.1 % (3.8-10.2); NEUT % 58.9 % (42.8-82.8); PLATELET COUNT 224 K/MM3 (134-434); RBC 2.79 M/mm3 (3.60-5.2); RDW 13.7 % (11.6-15.6); WHITE BLOOD COUNT 2.9 K/mm3 (4.0-10.0)
[2020-07-22 08:47] LABS: PROTHROMBIN TIME (PATIENT) 76.8 SEC (9.7-13.0)
[2020-07-22 09:00] LABS: INR 6.71 (0.83-1.09)
[2020-07-22 09:09] LABS: ALBUMIN 2.3 g/dl (3.4-5.0); BLOOD UREA NITROGEN 23.2 mg/dL (7-18); CALCIUM 8.2 mg/dL (8.5-10.1)
[2020-07-22 09:11] LABS: CREATININE 0.8 mg/dL (0.55-1.3)
[2020-07-22 09:12] LABS: BILIRUBIN,TOTAL 0.2 mg/dL (0.2-1)
[2020-07-22] MEDS ORDERED: MYCOPHENOLATE MOFETIL 500 MG TABLET PO SCH (10:00)
[2020-07-22] MEDS ORDERED: WARFARIN NA 2 MG TABLET PO SCH (10:00)
[2020-07-22] MEDS ORDERED: predniSONE 10 MG TABLET (UD) PO SCH (10:00)
[2020-07-22] MEDS: amLODIPine BESYLATE 5 MG TABLET (FP) PO SCH (10:50)
[2020-07-22] MEDS: CARVEDILOL 6.25 MG TABLET (FP) PO SCH (10:50)
[2020-07-22] MEDS: ASPIRIN 81 MG CHEWABLE TABLETS PO SCH (10:50)
[2020-07-22] MEDS: MYCOPHENOLATE MOFETIL 500 MG TABLET PO SCH ×2 (11:57→22:05)
[2020-07-22] MEDS ORDERED: ACETAMINOPHEN 325 MG TABLET (FP) PO PRN (12:18)
[2020-07-22] MEDS ORDERED: predniSONE 20 MG TABLET (UD) PO ONE (12:30)
[2020-07-22 16:25] LABS: POTASSIUM 3.7 mmol/L (3.5-5.1)
[2020-07-22 16:28] LABS: ALBUMIN 2.6 g/dl (3.4-5.0); BLOOD UREA NITROGEN 21.7 mg/dL (7-18); CALCIUM 8.3 mg/dL (8.5-10.1)
[2020-07-22 16:32] LABS: CREATININE 0.8 mg/dL (0.55-1.3)
[2020-07-22 16:34] LABS: BILIRUBIN,TOTAL 0.1 mg/dL (0.2-1); TOT PROT 5.4 g/dl (6.4-8.2)
[2020-07-22] MEDS ORDERED: WARFARIN NA 5 MG TABLET PO SCH (18:00)
[2020-07-23 08:32] LABS: PROTHROMBIN TIME (PATIENT) 50.6 SEC (9.7-13.0)
[2020-07-23 09:01] LABS: INR 4.29 (0.83-1.09)
[2020-07-23] MEDS ORDERED: PT OWN MED DRAWER 7, Y5N ONE ×3 (09:05→10:47)
[2020-07-23] MEDS: ASPIRIN 81 MG CHEWABLE TABLETS PO SCH (09:22)
[2020-07-23] MEDS: CARVEDILOL 6.25 MG TABLET (FP) PO SCH (09:22)
[2020-07-23] MEDS: amLODIPine BESYLATE 5 MG TABLET (FP) PO SCH (09:38)
[2020-07-23] MEDS ORDERED: predniSONE 20 MG TABLET (UD) PO SCH (10:00)
[2020-07-23] MEDS: MYCOPHENOLATE MOFETIL 500 MG TABLET PO SCH (10:50)
[2020-07-23 13:52] VITALS: BP 114/70; PULSE 78; TEMP 98.6
== END 2020-07-23 17:20 | disposition home or self-care (01) ==
LOC: JER 15:56 → UNDOADMOB 16:09 → JERBED 16:09 → INTOOBSV 16:09 → J6S 07-22 01:59 → JERBED 07-22 01:59 → J6S 07-22 15:31
PROVIDERS: ADMIT Internal Medicine; ATTEND Internal Medicine
DX: I12.9 Hypertensive chronic kidney disease with stage 1 through stage 4 chronic kidney disease, or unspecified chronic kidney disease (principal); M32.9 Systemic lupus erythematosus, unspecified; Z79.01 Long term (current) use of anticoagulants; I10 Essential (primary) hypertension; D64.9 Anemia, unspecified; R80.9 Proteinuria, unspecified; D68.61 Antiphospholipid syndrome; N18.9 Chronic kidney disease, unspecified
CPT/HCPCS: 36415; 71046-TC-FY; 80053; 81003; 84703; 85025; 85610; 93005; 93010; 99285-25; C9803; G0378; J7517; U0003; U0005

== ENCOUNTER 2022-02-10 10:00 | Inpatient (IN) | payer OTHER ==
[2022-02-10 10:17] VITALS: BMI 20.1
[2022-02-10] MEDS ORDERED: FAMOTIDINE 20 MG/50 ML IVPB 20 MG/50 ML MG IVPB ONE ×2 (10:57→11:36)
[2022-02-10] MEDS ORDERED: ACETAMINOPHEN 1000 MG/100 ML BAG IVPB ONE (10:57)
[2022-02-10] MEDS ORDERED: ONDANSETRON 4 MG/2 ML VIAL IVPUSH ONE (10:57)
[2022-02-10] MEDS ORDERED: SODIUM CHLORIDE 1,000 ML IV STA (10:57)
[2022-02-10] MEDS ORDERED: MAG HYDROX/AL HYDROX/SIMETH -MYLANTA- ORAL SUSPENSION PO ONE (10:59)
[2022-02-10] MEDS ORDERED: ONDANSETRON 4 MG/2 ML VIAL ONE (11:28)
[2022-02-10] MEDS ORDERED: MAG HYDROX/AL HYDROX/SIMETH 30 ML UNIT-DOSE CUP ONE (11:28)
[2022-02-10] MEDS ORDERED: ACETAMINOPHEN INJECTION 100 ML IVPB ONE (11:28)
[2022-02-10 11:54] LABS: BASO % 0.9 % (0-2.0); EOS % 2.3 % (0-4.5); HEMATOCRIT 21.7 % (32.4-45.2); LYMPH % 18.5 % (8-40); MEAN CELL VOLUME 90.6 fl (80-96); MONO % 14.3 % (3.8-10.2); PLATELET COUNT 235 10^3/uL (134-434); RBC 2.39 M/mm3 (3.60-5.2); RDW 15.4 % (11.6-15.6); WHITE BLOOD COUNT 2.6 K/mm3 (4.0-10.0)
[2022-02-10 11:57] LABS: INR 1.03 (0.83-1.09); PROTHROMBIN TIME (PATIENT) 11.9 SEC (9.7-13.0)
[2022-02-10 12:04] LABS: HCG,QUALITATIVE URINE Negative
[2022-02-10 12:08] LABS: EPI CELLS >36 /uL (0-25.1); HYALINE CASTS 1 /uL (0-3.1); URINE APPEARANCE CLEAR; URINE BACTERIA 1244 /uL (0-1359); URINE BILIRUBIN NEGATIVE (NEGATIVE); URINE COLOR YELLOW; URINE GLUCOSE (UA) NEGATIVE (NEGATIVE); URINE KETONE NEGATIVE (NEGATIVE); URINE LEUK ESTERASE TRACE (NEGATIVE); URINE NITRITE NEGATIVE (NEGATIVE); URINE PROTEIN 3+ (NEGATIVE); URINE RBC 51 /uL (0-23.9); URINE UROBILINOGEN 0.2 mg/dL (0.2-1.0); URINE WBC 63 /uL (0-25.8)
[2022-02-10 12:18] LABS: HEMOGLOBIN 6.9 GM/dL (10.7-15.3)
[2022-02-10 12:19] LABS: CHLORIDE 109 mmol/L (98-107); SODIUM 143 mmol/L (136-145)
[2022-02-10 12:22] LABS: ALBUMIN 3.1 g/dl (3.4-5.0); ANION GAP 10 MMOL/L (8-16); BLOOD UREA NITROGEN 48.9 mg/dL (7-18); CALCIUM 8.6 mg/dL (8.5-10.1); CO2 24 mmol/L (21-32); LIPASE 339 U/L (73-393)
[2022-02-10 12:23] LABS: GLUCOSE,RANDOM 90 mg/dL (74-106)
[2022-02-10 12:25] LABS: CREATININE 4.6 mg/dL (0.55-1.3); SGOT/AST 11 U/L (15-37); SGPT/ALT 10 U/L (13-61)
[2022-02-10 12:27] LABS: BILIRUBIN,TOTAL 0.2 mg/dL (0.2-1); TOT PROT 6.1 g/dl (6.4-8.2)
[2022-02-10 12:28] LABS: ALK PHOS 41 U/L (45-117)
[2022-02-10] MEDS ORDERED: DEXTROSE 5%-0.45% SALINE 1,000 ML IV SCH (19:30)
[2022-02-10] MEDS ORDERED: amLODIPine BESYLATE 5 MG TABLET (FP) ONE (21:00)
[2022-02-10] MEDS: amLODIPine BESYLATE 5 MG TABLET (FP) PO SCH (21:48)
[2022-02-10] MEDS ORDERED: CARVEDILOL 6.25 MG TABLET (FP) ONE (23:14)
[2022-02-10] MEDS ORDERED: HEPARIN NA (PORCINE) 5,000 UNITS/ML 1ML VIAL ONE (23:14)
[2022-02-10] MEDS: CARVEDILOL 6.25 MG TABLET (FP) PO SCH (23:25)
[2022-02-10] MEDS: HEPARIN NA (PORCINE) 5,000 UNITS/ML 1ML VIAL SQ SCH (23:25)
[2022-02-11] MEDS ORDERED: amLODIPine BESYLATE 2.5 MG TABLET (FP) PO ONE (00:01)
[2022-02-11] MEDS ORDERED: amLODIPine BESYLATE 2.5 MG TABLET (FP) ONE (00:04)
[2022-02-11 08:19] LABS: BASO % 0.6 % (0-2.0); EOS % 2.8 % (0-4.5); HEMATOCRIT 24.9 % (32.4-45.2); HEMOGLOBIN 8.6 GM/dL (10.7-15.3); LYMPH % 20.8 % (8-40); MCH 29.6 pg (25.7-33.7); MCHC 34.5 g/dl (32.0-36.0); MEAN CELL VOLUME 85.7 fl (80-96); MEAN PLT VOLUME 8.2 fl (7.5-11.1); MONO % 15.1 % (3.8-10.2); NEUT % 60.7 % (42.8-82.8); PLATELET COUNT 167 10^3/uL (134-434); RBC 2.91 M/mm3 (3.60-5.2); RDW 15.6 % (11.6-15.6); WHITE BLOOD COUNT 2.2 K/mm3 (4.0-10.0)
[2022-02-11 08:39] LABS: CALCIUM 7.7 mg/dL (8.5-10.1)
[2022-02-11 08:40] LABS: ALBUMIN 2.6 g/dl (3.4-5.0); BLOOD UREA NITROGEN 43.1 mg/dL (7-18)
[2022-02-11 08:43] LABS: CREATININE 4.3 mg/dL (0.55-1.3)
[2022-02-11 08:46] LABS: BILIRUBIN,TOTAL 0.4 mg/dL (0.2-1)
[2022-02-11] MEDS: CARVEDILOL 6.25 MG TABLET (FP) PO SCH ×2 (08:47→11:27)
[2022-02-11] MEDS: amLODIPine BESYLATE 5 MG TABLET (FP) PO SCH ×2 (08:47→10:40)
[2022-02-11] MEDS ORDERED: ASPIRIN 81 MG CHEWABLE TABLETS PO SCH (10:00)
[2022-02-11] MEDS: DEXTROSE 5%-0.45% SALINE 1,000 ML IV SCH (10:30)
[2022-02-11] MEDS: HEPARIN NA (PORCINE) 5,000 UNITS/ML 1ML VIAL SQ SCH (10:36)
[2022-02-11] MEDS: MYCOPHENOLATE MOFETIL 500 MG TABLET PO SCH ×2 (10:37→21:27)
[2022-02-11] MEDS: methylPREDNISolone NA SUCC 1000 MG/8 ML VIAL IVPB SCH (11:55)
[2022-02-11] MEDS: ENOXAPARIN NA (PORCINE) 60 MG/0.6 ML DISP.SYRIN SQ SCH (11:55)
[2022-02-11] MEDS ORDERED: ONDANSETRON 4 MG/2 ML VIAL IVPUSH PRN (12:38)
[2022-02-11] MEDS ORDERED: FAMOTIDINE 20 MG/50 ML IVPB 20 MG/50 ML MG IVPB SCH (13:00)
[2022-02-11] MEDS: ONDANSETRON 4 MG/2 ML VIAL IVPUSH SCH ×3 (13:13→21:27)
[2022-02-11] MEDS: hydrALAZINE HCL 25 MG TABLET (FP) PO SCH ×2 (13:13→21:27)
[2022-02-11] MEDS ORDERED: PANTOPRAZOLE SODIUM 40 MG in SODIUM CHLORIDE 100 ML IVPUSH SCH (13:30)
[2022-02-11] MEDS: PANTOPRAZOLE SODIUM 40 MG VIAL IVPUSH SCH ×2 (14:23→21:27)
[2022-02-11] MEDS: CARVEDILOL 12.5 MG TABLET (FP) PO SCH (21:27)
[2022-02-12] MEDS: ONDANSETRON 4 MG/2 ML VIAL IVPUSH SCH (01:56)
[2022-02-12] MEDS ORDERED: ONDANSETRON 4 MG/2 ML VIAL IVPUSH PRN (05:00)
[2022-02-12] MEDS ORDERED: ACETAMINOPHEN 325 MG TABLET (FP) PO ONE (05:15)
[2022-02-12] MEDS: hydrALAZINE HCL 25 MG TABLET (FP) PO SCH ×3 (06:01→21:40)
[2022-02-12] MEDS: DEXTROSE 5%-0.45% SALINE 1,000 ML IV SCH (10:15)
[2022-02-12] MEDS: methylPREDNISolone NA SUCC 1000 MG/8 ML VIAL IVPB SCH (10:15)
[2022-02-12] MEDS: ENOXAPARIN NA (PORCINE) 60 MG/0.6 ML DISP.SYRIN SQ SCH (10:15)
[2022-02-12] MEDS: PANTOPRAZOLE SODIUM 40 MG VIAL IVPUSH SCH ×2 (10:15→21:41)
[2022-02-12] MEDS: CARVEDILOL 12.5 MG TABLET (FP) PO SCH ×2 (10:31→21:40)
[2022-02-12] MEDS: amLODIPine BESYLATE 5 MG TABLET (FP) PO SCH (10:31)
[2022-02-12] MEDS: MYCOPHENOLATE MOFETIL 500 MG TABLET PO SCH ×2 (10:32→21:41)
[2022-02-12 12:57] LABS: BASO % 0.1 % (0-2.0); HEMOGLOBIN 9.2 GM/dL (10.7-15.3); LYMPH % 10.7 % (8-40); MCH 29.2 pg (25.7-33.7); MEAN PLT VOLUME 8.8 fl (7.5-11.1); MONO % 6.6 % (3.8-10.2); NEUT % 82.6 % (42.8-82.8); PLATELET COUNT 170 10^3/uL (134-434); RBC 3.13 M/mm3 (3.60-5.2); RDW 15.3 % (11.6-15.6); WHITE BLOOD COUNT 2.7 K/mm3 (4.0-10.0)
[2022-02-12] MEDS: PIPERACILLIN/TAZOB 2.25 GM 2.25 GM in DEXTROSE 5%-WATER - 50 ML IVPB SCH ×2 (13:09→17:30)
[2022-02-12 13:16] LABS: CALCIUM 8.2 mg/dL (8.5-10.1)
[2022-02-12 13:17] LABS: ALBUMIN 2.9 g/dl (3.4-5.0)
[2022-02-12 13:20] LABS: CREATININE 5.1 mg/dL (0.55-1.3)
[2022-02-12 13:21] LABS: BILIRUBIN,TOTAL 0.4 mg/dL (0.2-1); TOT PROT 5.5 g/dl (6.4-8.2)
[2022-02-13] MEDS: PIPERACILLIN/TAZOB 2.25 GM 2.25 GM in DEXTROSE 5%-WATER - 50 ML IVPB SCH ×3 (01:43→17:09)
[2022-02-13] MEDS: DEXTROSE 5%-0.45% SALINE 1,000 ML IV SCH ×2 (05:20→09:51)
[2022-02-13] MEDS: hydrALAZINE HCL 25 MG TABLET (FP) PO SCH ×3 (05:53→21:22)
[2022-02-13 07:49] LABS: BASO % 0.1 % (0-2.0); HEMATOCRIT 24.8 % (32.4-45.2); HEMOGLOBIN 8.4 GM/dL (10.7-15.3); LYMPH % 6.3 % (8-40); MCH 29.3 pg (25.7-33.7); MCHC 33.9 g/dl (32.0-36.0); MEAN CELL VOLUME 86.2 fl (80-96); MEAN PLT VOLUME 9.3 fl (7.5-11.1); MONO % 3.8 % (3.8-10.2); NEUT % 89.8 % (42.8-82.8); PLATELET COUNT 178 10^3/uL (134-434); RBC 2.87 M/mm3 (3.60-5.2); RDW 15.4 % (11.6-15.6); WHITE BLOOD COUNT 4.8 K/mm3 (4.0-10.0)
[2022-02-13 08:23] LABS: ALBUMIN 2.6 g/dl (3.4-5.0); BLOOD UREA NITROGEN 44.1 mg/dL (7-18); CALCIUM 7.6 mg/dL (8.5-10.1)
[2022-02-13 08:27] LABS: CREATININE 5.1 mg/dL (0.55-1.3)
[2022-02-13 08:28] LABS: BILIRUBIN,TOTAL 0.2 mg/dL (0.2-1)
[2022-02-13] MEDS: ENOXAPARIN NA (PORCINE) 60 MG/0.6 ML DISP.SYRIN SQ SCH (09:50)
[2022-02-13] MEDS: PANTOPRAZOLE SODIUM 40 MG VIAL IVPUSH SCH ×2 (09:50→21:22)
[2022-02-13] MEDS: CARVEDILOL 12.5 MG TABLET (FP) PO SCH ×2 (09:51→21:22)
[2022-02-13] MEDS: MYCOPHENOLATE MOFETIL 500 MG TABLET PO SCH ×2 (09:51→21:22)
[2022-02-13] MEDS: amLODIPine BESYLATE 5 MG TABLET (FP) PO SCH (09:51)
[2022-02-13] MEDS: predniSONE 20 MG TABLET (UD) PO SCH (09:51)
[2022-02-13] MEDS ORDERED: predniSONE 20 MG TABLET (UD) PO SCH (10:00)
[2022-02-13 21:42] LABS: BASO % 0.1 % (0-2.0); HEMOGLOBIN 8.3 GM/dL (10.7-15.3); LYMPH % 3.9 % (8-40); MCH 28.9 pg (25.7-33.7); MCHC 33.1 g/dl (32.0-36.0); MEAN CELL VOLUME 87.1 fl (80-96); PLATELET COUNT 174 10^3/uL (134-434); RBC 2.87 M/mm3 (3.60-5.2); RDW 15.8 % (11.6-15.6)
[2022-02-13 21:58] LABS: ALBUMIN 2.4 g/dl (3.4-5.0); BLOOD UREA NITROGEN 49.5 mg/dL (7-18)
[2022-02-13 22:01] LABS: CREATININE 5.6 mg/dL (0.55-1.3)
[2022-02-13 22:02] LABS: BILIRUBIN,TOTAL 0.2 mg/dL (0.2-1); TOT PROT 4.9 g/dl (6.4-8.2)
[2022-02-13 22:10] LABS: ANISOCYTOSIS 2+; MACROCYTOSIS 0; OVALOCYTE 1+
[2022-02-14] MEDS: PIPERACILLIN/TAZOB 2.25 GM 2.25 GM in DEXTROSE 5%-WATER - 50 ML IVPB SCH ×3 (01:22→17:33)
[2022-02-14] MEDS: DEXTROSE 5%-0.45% SALINE 1,000 ML IV SCH ×4 (02:44→23:42)
[2022-02-14] MEDS: hydrALAZINE HCL 25 MG TABLET (FP) PO SCH ×4 (05:50→23:43)
[2022-02-14 08:23] LABS: BASO % 0.1 % (0-2.0); HEMATOCRIT 24.2 % (32.4-45.2); HEMOGLOBIN 8.1 GM/dL (10.7-15.3); LYMPH % 5.9 % (8-40); MCH 28.8 pg (25.7-33.7); MCHC 33.3 g/dl (32.0-36.0); MEAN CELL VOLUME 86.5 fl (80-96); MEAN PLT VOLUME 9.4 fl (7.5-11.1); MONO % 6.5 % (3.8-10.2); NEUT % 87.5 % (42.8-82.8); PLATELET COUNT 182 10^3/uL (134-434); RBC 2.79 M/mm3 (3.60-5.2); RDW 15.4 % (11.6-15.6); WHITE BLOOD COUNT 6.5 K/mm3 (4.0-10.0)
[2022-02-14 08:41] LABS: CHLORIDE 108 mmol/L (98-107); SODIUM 139 mmol/L (136-145)
[2022-02-14 08:42] LABS: CALCIUM 7.2 mg/dL (8.5-10.1); GLUCOSE,RANDOM 119 mg/dL (74-106)
[2022-02-14 08:43] LABS: ALBUMIN 2.4 g/dl (3.4-5.0); BLOOD UREA NITROGEN 52.5 mg/dL (7-18); LIPASE 224 U/L (73-393)
[2022-02-14 08:44] LABS: AMYLASE 69 U/L (25-115)
[2022-02-14 08:47] LABS: CREATININE 5.5 mg/dL (0.55-1.3); SGPT/ALT 7 U/L (13-61)
[2022-02-14 08:48] LABS: BILIRUBIN,TOTAL 0.2 mg/dL (0.2-1); SGOT/AST 4 U/L (15-37)
[2022-02-14 08:49] LABS: ALK PHOS 25 U/L (45-117); TOT PROT 4.7 g/dl (6.4-8.2)
[2022-02-14 08:50] LABS: ANION GAP 12 MMOL/L (8-16); CO2 19 mmol/L (21-32)
[2022-02-14] MEDS: PANTOPRAZOLE SODIUM 40 MG VIAL IVPUSH SCH (10:35)
[2022-02-14] MEDS ORDERED: PANTOPRAZOLE 40 MG TABLET PO SCH (10:45)
[2022-02-14 11:11] LABS: EPI CELLS 11 /uL (0-25.1); HYALINE CASTS 1 /uL (0-3.1); URINE APPEARANCE CLEAR; URINE BACTERIA 29 /uL (0-1359); URINE BILIRUBIN NEGATIVE (NEGATIVE); URINE COLOR YELLOW; URINE GLUCOSE (UA) NEGATIVE (NEGATIVE); URINE KETONE NEGATIVE (NEGATIVE); URINE LEUK ESTERASE NEGATIVE (NEGATIVE); URINE NITRITE NEGATIVE (NEGATIVE); URINE PROTEIN 2+ (NEGATIVE); URINE RBC 18 /uL (0-23.9); URINE UROBILINOGEN 0.2 mg/dL (0.2-1.0); URINE WBC 30 /uL (0-25.8)
[2022-02-14 11:16] LABS: YEAST NEGATIVE (NEGATIVE)
[2022-02-14] MEDS: CARVEDILOL 12.5 MG TABLET (FP) PO SCH ×3 (14:04→23:44)
[2022-02-14] MEDS: predniSONE 20 MG TABLET (UD) PO SCH (14:04)
[2022-02-14] MEDS: amLODIPine BESYLATE 5 MG TABLET (FP) PO SCH (14:05)
[2022-02-14] MEDS: MYCOPHENOLATE MOFETIL 500 MG TABLET PO SCH ×3 (17:35→23:41)
[2022-02-14] MEDS ORDERED: ONDANSETRON 4 MG/2 ML VIAL IVPUSH PRN (22:55)
[2022-02-14] MEDS: ENOXAPARIN NA (PORCINE) 60 MG/0.6 ML DISP.SYRIN SQ SCH (23:35)
[2022-02-15] MEDS: PIPERACILLIN/TAZOB 2.25 GM 2.25 GM in DEXTROSE 5%-WATER - 50 ML IVPB SCH ×2 (02:27→12:06)
[2022-02-15] MEDS: hydrALAZINE HCL 25 MG TABLET (FP) PO SCH ×3 (07:19→21:39)
[2022-02-15 10:17] LABS: HEMATOCRIT 24.5 % (32.4-45.2); HEMOGLOBIN 8.2 GM/dL (10.7-15.3); MCH 28.9 pg (25.7-33.7); MCHC 33.6 g/dl (32.0-36.0); MEAN CELL VOLUME 86.2 fl (80-96); MEAN PLT VOLUME 9.4 fl (7.5-11.1); PLATELET COUNT 179 10^3/uL (134-434); RBC 2.84 M/mm3 (3.60-5.2); RDW 15.1 % (11.6-15.6); WHITE BLOOD COUNT 4.7 K/mm3 (4.0-10.0)
[2022-02-15] MEDS: CARVEDILOL 12.5 MG TABLET (FP) PO SCH ×2 (10:20→21:39)
[2022-02-15] MEDS: predniSONE 20 MG TABLET (UD) PO SCH (10:20)
[2022-02-15] MEDS: PANTOPRAZOLE 40 MG TABLET PO SCH (10:20)
[2022-02-15] MEDS: ENOXAPARIN NA (PORCINE) 60 MG/0.6 ML DISP.SYRIN SQ SCH (10:20)
[2022-02-15] MEDS: amLODIPine BESYLATE 5 MG TABLET (FP) PO SCH (10:20)
[2022-02-15 10:41] LABS: CALCIUM 7.6 mg/dL (8.5-10.1)
[2022-02-15 10:42] LABS: ALBUMIN 2.4 g/dl (3.4-5.0); BLOOD UREA NITROGEN 51.7 mg/dL (7-18)
[2022-02-15 10:45] LABS: CREATININE 5.2 mg/dL (0.55-1.3)
[2022-02-15 10:46] LABS: TOT PROT 4.6 g/dl (6.4-8.2)
[2022-02-15 10:47] LABS: BILIRUBIN,TOTAL 0.2 mg/dL (0.2-1)
[2022-02-15] MEDS: MYCOPHENOLATE MOFETIL 500 MG TABLET PO SCH ×2 (12:37→21:39)
[2022-02-15] MEDS: IRON SUCROSE INJECTION 200 MG in SODIUM CHLORIDE 90 ML IVPB SCH (12:57)
[2022-02-15] MEDS: DEXTROSE 5%-0.45% SALINE 1,000 ML IV SCH (21:40)
[2022-02-16] MEDS: DEXTROSE 5%-0.45% SALINE 1,000 ML IV SCH (02:12)
[2022-02-16] MEDS: hydrALAZINE HCL 25 MG TABLET (FP) PO SCH ×3 (06:04→21:56)
[2022-02-16] MEDS: PANTOPRAZOLE 40 MG TABLET PO SCH (09:31)
[2022-02-16] MEDS: MYCOPHENOLATE MOFETIL 500 MG TABLET PO SCH ×2 (09:31→21:56)
[2022-02-16] MEDS: predniSONE 20 MG TABLET (UD) PO SCH (09:31)
[2022-02-16] MEDS: amLODIPine BESYLATE 5 MG TABLET (FP) PO SCH (09:32)
[2022-02-16] MEDS: CARVEDILOL 12.5 MG TABLET (FP) PO SCH ×2 (09:32→21:56)
[2022-02-16 09:54] LABS: INR 0.98 (0.83-1.09); PROTHROMBIN TIME (PATIENT) 11.3 SEC (9.7-13.0)
[2022-02-16 09:57] LABS: ACTIVATED PTT 31.5 SECONDS (25.2-36.5)
[2022-02-16 10:06] LABS: HEMOGLOBIN 8.5 GM/dL (10.7-15.3); LYMPH % 11.7 % (8-40); MCH 29.2 pg (25.7-33.7); MCHC 33.9 g/dl (32.0-36.0); MEAN PLT VOLUME 9.1 fl (7.5-11.1); MONO % 10.5 % (3.8-10.2); NEUT % 77.8 % (42.8-82.8); PLATELET COUNT 193 10^3/uL (134-434); RBC 2.91 M/mm3 (3.60-5.2); RDW 14.5 % (11.6-15.6); WHITE BLOOD COUNT 4.7 K/mm3 (4.0-10.0)
[2022-02-16 10:07] LABS: CHLORIDE 112 mmol/L (98-107); SODIUM 140 mmol/L (136-145)
[2022-02-16 10:15] LABS: ALBUMIN 2.4 g/dl (3.4-5.0); ANION GAP 10 MMOL/L (8-16); BLOOD UREA NITROGEN 51.8 mg/dL (7-18); CALCIUM 7.9 mg/dL (8.5-10.1); CO2 18 mmol/L (21-32); GLUCOSE,RANDOM 91 mg/dL (74-106)
[2022-02-16 10:17] LABS: CREATININE 4.8 mg/dL (0.55-1.3); SGOT/AST 6 U/L (15-37)
[2022-02-16 10:18] LABS: IRON SERUM 164 ug/dL (50-175); SGPT/ALT < 6 U/L (13-61); TOTAL IRON BINDING CAPACITY 179 ug/dL (250-450)
[2022-02-16 10:20] LABS: BILIRUBIN,TOTAL 0.2 mg/dL (0.2-1); TOT PROT 4.7 g/dl (6.4-8.2)
[2022-02-16 10:21] LABS: ALK PHOS 23 U/L (45-117)
[2022-02-16] MEDS: IRON SUCROSE INJECTION 200 MG in SODIUM CHLORIDE 90 ML IVPB SCH (11:02)
[2022-02-16] MEDS ORDERED: POTASSIUM CHLORIDE TABS 20 MEQ TABLET.ER (FP) PO ONE (12:06)
[2022-02-16 15:08] LABS: ATYPICAL pANCA <1:20 titer (Neg:<1:20); C-ANCA <1:20 titer (Neg:<1:20)
[2022-02-17] MEDS: hydrALAZINE HCL 25 MG TABLET (FP) PO SCH ×3 (06:49→21:51)
[2022-02-17] MEDS ORDERED: MIDAZOLAM HCL 2 MG/2 ML SINGLE DOSE VIAL ONE (09:00)
[2022-02-17] MEDS: amLODIPine BESYLATE 5 MG TABLET (FP) PO SCH (09:40)
[2022-02-17] MEDS: PANTOPRAZOLE 40 MG TABLET PO SCH (09:40)
[2022-02-17] MEDS: predniSONE 20 MG TABLET (UD) PO SCH (09:41)
[2022-02-17] MEDS: MYCOPHENOLATE MOFETIL 500 MG TABLET PO SCH ×2 (09:41→21:51)
[2022-02-17] MEDS: CARVEDILOL 12.5 MG TABLET (FP) PO SCH (09:41)
[2022-02-17] MEDS: IRON SUCROSE INJECTION 200 MG in SODIUM CHLORIDE 90 ML IVPB SCH (09:42)
[2022-02-17] MEDS ORDERED: MIDAZOLAM HCL 2 MG/2 ML SINGLE DOSE VIAL IVPUSH ONE (11:10)
[2022-02-17] MEDS ORDERED: LABETALOL HCL 5 MG/1 ML (100MG/20 ML VIAL) ONE (11:17)
[2022-02-17] MEDS: LABETALOL HCL 5 MG/1 ML (100MG/20 ML VIAL) IVPUSH SCH ×2 (11:24→11:39)
[2022-02-17] MEDS ORDERED: amLODIPine BESYLATE 10 MG TABLET (FP) PO SCH (12:32)
[2022-02-17] MEDS: ENOXAPARIN NA (PORCINE) 60 MG/0.6 ML DISP.SYRIN SQ SCH (19:30)
[2022-02-17] MEDS: SODIUM CHLORIDE 500 ML IV SCH (21:30)
[2022-02-17] MEDS: CARVEDILOL 25 MG TABLET (FP) PO SCH (21:50)
[2022-02-18] MEDS: hydrALAZINE HCL 25 MG TABLET (FP) PO SCH ×3 (05:59→21:55)
[2022-02-18] MEDS: CARVEDILOL 25 MG TABLET (FP) PO SCH ×2 (09:42→21:55)
[2022-02-18] MEDS: predniSONE 20 MG TABLET (UD) PO SCH (09:43)
[2022-02-18] MEDS: PANTOPRAZOLE 40 MG TABLET PO SCH (09:43)
[2022-02-18] MEDS: ENOXAPARIN NA (PORCINE) 60 MG/0.6 ML DISP.SYRIN SQ SCH (09:43)
[2022-02-18] MEDS: amLODIPine BESYLATE 10 MG TABLET (FP) PO SCH (09:43)
[2022-02-18] MEDS: MYCOPHENOLATE MOFETIL 500 MG TABLET PO SCH ×2 (09:43→21:56)
[2022-02-18 09:51] LABS: HEMATOCRIT 25.9 % (32.4-45.2); HEMOGLOBIN 8.6 GM/dL (10.7-15.3); MCH 28.8 pg (25.7-33.7); MCHC 33.3 g/dl (32.0-36.0); MEAN CELL VOLUME 86.3 fl (80-96); MEAN PLT VOLUME 9.2 fl (7.5-11.1); PLATELET COUNT 233 10^3/uL (134-434); RDW 14.8 % (11.6-15.6); WHITE BLOOD COUNT 6.2 K/mm3 (4.0-10.0)
[2022-02-18 10:14] LABS: CALCIUM 7.9 mg/dL (8.5-10.1)
[2022-02-18 10:16] LABS: ALBUMIN 2.7 g/dl (3.4-5.0); BLOOD UREA NITROGEN 60.8 mg/dL (7-18); CREATININE 4.4 mg/dL (0.55-1.3)
[2022-02-18 10:18] LABS: BILIRUBIN,TOTAL 0.2 mg/dL (0.2-1); TOT PROT 5.1 g/dl (6.4-8.2)
[2022-02-18 10:19] LABS: ANISOCYTOSIS 1+; MACROCYTOSIS 0; OVALOCYTE 1+
[2022-02-18] MEDS: ISOSORBIDE DINITRATE 5 MG TABLET PO SCH (17:54)
[2022-02-18] MEDS: SODIUM CHLORIDE 500 ML IV SCH (21:55)
[2022-02-19] MEDS: SODIUM CHLORIDE 500 ML IV SCH ×2 (05:34→12:38)
[2022-02-19] MEDS: hydrALAZINE HCL 25 MG TABLET (FP) PO SCH ×3 (05:36→21:49)
[2022-02-19] MEDS: ISOSORBIDE DINITRATE 5 MG TABLET PO SCH ×2 (08:50→13:06)
[2022-02-19] MEDS: ENOXAPARIN NA (PORCINE) 60 MG/0.6 ML DISP.SYRIN SQ SCH (09:39)
[2022-02-19] MEDS: predniSONE 20 MG TABLET (UD) PO SCH (09:40)
[2022-02-19] MEDS: PANTOPRAZOLE 40 MG TABLET PO SCH (09:40)
[2022-02-19] MEDS: CARVEDILOL 25 MG TABLET (FP) PO SCH ×2 (09:40→21:49)
[2022-02-19] MEDS: amLODIPine BESYLATE 10 MG TABLET (FP) PO SCH (09:41)
[2022-02-19] MEDS: MYCOPHENOLATE MOFETIL 500 MG TABLET PO SCH ×2 (09:42→22:20)
[2022-02-20] MEDS: hydrALAZINE HCL 25 MG TABLET (FP) PO SCH ×3 (06:26→22:01)
[2022-02-20] MEDS: SODIUM CHLORIDE 500 ML IV SCH ×2 (06:27→14:09)
[2022-02-20] MEDS: predniSONE 20 MG TABLET (UD) PO SCH (09:30)
[2022-02-20] MEDS: amLODIPine BESYLATE 10 MG TABLET (FP) PO SCH (09:30)
[2022-02-20] MEDS: PANTOPRAZOLE 40 MG TABLET PO SCH (09:31)
[2022-02-20] MEDS: ENOXAPARIN NA (PORCINE) 60 MG/0.6 ML DISP.SYRIN SQ SCH (09:32)
[2022-02-20] MEDS: ISOSORBIDE DINITRATE 5 MG TABLET PO SCH ×2 (09:43→14:12)
[2022-02-20] MEDS: MYCOPHENOLATE MOFETIL 500 MG TABLET PO SCH ×2 (09:44→22:01)
[2022-02-20 09:58] LABS: CALCIUM 7.7 mg/dL (8.5-10.1)
[2022-02-20 09:59] LABS: BLOOD UREA NITROGEN 74.6 mg/dL (7-18)
[2022-02-20 10:02] LABS: CREATININE 4.6 mg/dL (0.55-1.3)
[2022-02-20] MEDS: CARVEDILOL 25 MG TABLET (FP) PO SCH ×2 (12:12→22:01)
[2022-02-21] MEDS: hydrALAZINE HCL 25 MG TABLET (FP) PO SCH ×3 (05:49→22:33)
[2022-02-21] MEDS: amLODIPine BESYLATE 10 MG TABLET (FP) PO SCH (09:09)
[2022-02-21] MEDS: PANTOPRAZOLE 40 MG TABLET PO SCH (09:09)
[2022-02-21] MEDS: CARVEDILOL 25 MG TABLET (FP) PO SCH ×2 (09:09→22:33)
[2022-02-21] MEDS: MYCOPHENOLATE MOFETIL 500 MG TABLET PO SCH ×2 (09:09→22:33)
[2022-02-21] MEDS: ISOSORBIDE DINITRATE 5 MG TABLET PO SCH ×2 (09:09→14:29)
[2022-02-21] MEDS: predniSONE 20 MG TABLET (UD) PO SCH (09:10)
[2022-02-21] MEDS ORDERED: MIDAZOLAM HCL 2 MG/2 ML SINGLE DOSE VIAL ONE (09:30)
[2022-02-21] MEDS ORDERED: hydrALAZINE HCL 20 MG/ML VIAL ONE (09:42)
[2022-02-21] MEDS: MIDAZOLAM HCL 2 MG/2 ML SINGLE DOSE VIAL IVPUSH SCH ×2 (10:02→10:15)
[2022-02-21 11:22] LABS: HEMATOCRIT 23.3 % (32.4-45.2); HEMOGLOBIN 7.7 GM/dL (10.7-15.3); MCH 28.6 pg (25.7-33.7); MCHC 32.8 g/dl (32.0-36.0); MEAN CELL VOLUME 87.1 fl (80-96); MEAN PLT VOLUME 7.9 fl (7.5-11.1); PLATELET COUNT 186 10^3/uL (134-434); RBC 2.68 M/mm3 (3.60-5.2); RDW 14.7 % (11.6-15.6); WHITE BLOOD COUNT 5.5 K/mm3 (4.0-10.0)
[2022-02-21 11:56] LABS: ANISOCYTOSIS 1+; MACROCYTOSIS 0; PLATELET ESTIMATE DECREASED
[2022-02-21 12:03] LABS: CALCIUM 8.1 mg/dL (8.5-10.1)
[2022-02-21 12:04] LABS: ALBUMIN 2.7 g/dl (3.4-5.0); BLOOD UREA NITROGEN 83.9 mg/dL (7-18)
[2022-02-21 12:07] LABS: CREATININE 4.6 mg/dL (0.55-1.3)
[2022-02-21 12:09] LABS: BILIRUBIN,TOTAL 0.3 mg/dL (0.2-1); TOT PROT 4.8 g/dl (6.4-8.2)
[2022-02-21] MEDS: SODIUM CHLORIDE 500 ML IV SCH (14:29)
[2022-02-22] MEDS: hydrALAZINE HCL 25 MG TABLET (FP) PO SCH ×3 (06:41→21:37)
[2022-02-22] MEDS: ISOSORBIDE DINITRATE 5 MG TABLET PO SCH ×2 (09:20→14:19)
[2022-02-22] MEDS: CARVEDILOL 25 MG TABLET (FP) PO SCH ×2 (09:20→21:38)
[2022-02-22] MEDS: PANTOPRAZOLE 40 MG TABLET PO SCH (09:20)
[2022-02-22] MEDS: MYCOPHENOLATE MOFETIL 500 MG TABLET PO SCH ×2 (09:20→21:38)
[2022-02-22] MEDS: amLODIPine BESYLATE 10 MG TABLET (FP) PO SCH (09:20)
[2022-02-22] MEDS: predniSONE 20 MG TABLET (UD) PO SCH (09:20)
[2022-02-22 09:58] LABS: HEMATOCRIT 23.6 % (32.4-45.2); MCH 29.2 pg (25.7-33.7); MCHC 33.7 g/dl (32.0-36.0); MEAN CELL VOLUME 86.7 fl (80-96); MEAN PLT VOLUME 7.9 fl (7.5-11.1); PLATELET COUNT 174 10^3/uL (134-434); RBC 2.72 M/mm3 (3.60-5.2); RDW 14.4 % (11.6-15.6); WHITE BLOOD COUNT 7.4 K/mm3 (4.0-10.0)
[2022-02-22 10:31] LABS: CALCIUM 7.8 mg/dL (8.5-10.1)
[2022-02-22 10:32] LABS: ALBUMIN 2.7 g/dl (3.4-5.0); BLOOD UREA NITROGEN 90.8 mg/dL (7-18)
[2022-02-22 10:35] LABS: CREATININE 4.6 mg/dL (0.55-1.3)
[2022-02-22 10:36] LABS: BILIRUBIN,TOTAL 0.2 mg/dL (0.2-1)
[2022-02-22 11:36] LABS: ANISOCYTOSIS 2+; MACROCYTOSIS 0; OVALOCYTE 2+; TEAR DROP CELLS 1+
[2022-02-22] MEDS: SODIUM CHLORIDE 500 ML IV SCH (14:19)
[2022-02-23] MEDS: hydrALAZINE HCL 25 MG TABLET (FP) PO SCH ×3 (06:30→22:30)
[2022-02-23] MEDS: ENOXAPARIN NA (PORCINE) 60 MG/0.6 ML DISP.SYRIN SQ SCH (09:59)
[2022-02-23] MEDS: CARVEDILOL 25 MG TABLET (FP) PO SCH ×2 (09:59→22:30)
[2022-02-23] MEDS: SODIUM BICARBONATE 650 MG TABLET PO SCH ×2 (10:00→22:31)
[2022-02-23] MEDS: amLODIPine BESYLATE 10 MG TABLET (FP) PO SCH (10:00)
[2022-02-23] MEDS: PANTOPRAZOLE 40 MG TABLET PO SCH (10:00)
[2022-02-23] MEDS: predniSONE 20 MG TABLET (UD) PO SCH (10:00)
[2022-02-23] MEDS: ISOSORBIDE DINITRATE 5 MG TABLET PO SCH ×2 (10:01→15:17)
[2022-02-23] MEDS: MYCOPHENOLATE MOFETIL 500 MG TABLET PO SCH ×2 (10:02→22:31)
[2022-02-23] MEDS ORDERED: WARFARIN NA 7.5 MG TABLET PO ONE (20:05)
[2022-02-23] MEDS: ACETAMINOPHEN 325 MG TABLET (FP) PO PRN (22:59)
[2022-02-24] MEDS: hydrALAZINE HCL 25 MG TABLET (FP) PO SCH ×3 (06:41→22:00)
[2022-02-24] MEDS: SODIUM BICARBONATE 650 MG TABLET PO SCH ×2 (09:29→21:59)
[2022-02-24] MEDS: ENOXAPARIN NA (PORCINE) 60 MG/0.6 ML DISP.SYRIN SQ SCH (09:29)
[2022-02-24] MEDS: PANTOPRAZOLE 40 MG TABLET PO SCH (09:29)
[2022-02-24] MEDS: amLODIPine BESYLATE 10 MG TABLET (FP) PO SCH (09:29)
[2022-02-24] MEDS: CARVEDILOL 25 MG TABLET (FP) PO SCH ×2 (09:29→21:59)
[2022-02-24] MEDS: predniSONE 20 MG TABLET (UD) PO SCH (09:29)
[2022-02-24] MEDS: MYCOPHENOLATE MOFETIL 500 MG TABLET PO SCH ×2 (09:30→21:59)
[2022-02-24] MEDS: ISOSORBIDE DINITRATE 5 MG TABLET PO SCH ×2 (09:30→14:07)
[2022-02-24 13:10] LABS: HEMATOCRIT 22.8 % (32.4-45.2); HEMOGLOBIN 7.6 GM/dL (10.7-15.3); MCH 28.9 pg (25.7-33.7); MCHC 33.2 g/dl (32.0-36.0); MEAN CELL VOLUME 87.1 fl (80-96); MEAN PLT VOLUME 8.6 fl (7.5-11.1); PLATELET COUNT 135 10^3/uL (134-434); RBC 2.62 M/mm3 (3.60-5.2); RDW 14.6 % (11.6-15.6)
[2022-02-24 13:15] LABS: INR 1.03 (0.83-1.09); PROTHROMBIN TIME (PATIENT) 11.9 SEC (9.7-13.0)
[2022-02-24 13:19] LABS: ALBUMIN 2.7 g/dl (3.4-5.0)
[2022-02-24 13:22] LABS: CREATININE 4.6 mg/dL (0.55-1.3)
[2022-02-24 13:24] LABS: BILIRUBIN,TOTAL 0.2 mg/dL (0.2-1); TOT PROT 4.8 g/dl (6.4-8.2)
[2022-02-24 14:10] LABS: ANISOCYTOSIS 1+; MACROCYTOSIS 0
[2022-02-24] MEDS ORDERED: WARFARIN NA 7.5 MG TABLET PO SCH (18:00)
[2022-02-24 21:02] LABS: EPI CELLS 12 /uL (0-25.1); HYALINE CASTS 2 /uL (0-3.1); URINE APPEARANCE Error; URINE BACTERIA 181 /uL (0-1359); URINE BILIRUBIN NEGATIVE (NEGATIVE); URINE COLOR YELLOW; URINE GLUCOSE (UA) NEGATIVE (NEGATIVE); URINE KETONE NEGATIVE (NEGATIVE); URINE LEUK ESTERASE TRACE (NEGATIVE); URINE NITRITE NEGATIVE (NEGATIVE); URINE PROTEIN 2+ (NEGATIVE); URINE RBC 15 /uL (0-23.9); URINE UROBILINOGEN 0.2 mg/dL (0.2-1.0); URINE WBC 33 /uL (0-25.8)
[2022-02-25] MEDS: hydrALAZINE HCL 25 MG TABLET (FP) PO SCH ×3 (06:25→21:58)
[2022-02-25] MEDS: amLODIPine BESYLATE 10 MG TABLET (FP) PO SCH (09:55)
[2022-02-25] MEDS: PANTOPRAZOLE 40 MG TABLET PO SCH (09:55)
[2022-02-25] MEDS: ISOSORBIDE DINITRATE 5 MG TABLET PO SCH ×2 (09:55→14:22)
[2022-02-25] MEDS: predniSONE 20 MG TABLET (UD) PO SCH (09:55)
[2022-02-25] MEDS: CARVEDILOL 25 MG TABLET (FP) PO SCH ×2 (09:55→21:59)
[2022-02-25] MEDS: SODIUM BICARBONATE 650 MG TABLET PO SCH ×2 (09:55→21:59)
[2022-02-25] MEDS: ENOXAPARIN NA (PORCINE) 60 MG/0.6 ML DISP.SYRIN SQ SCH (09:56)
[2022-02-25 09:58] LABS: INR 1.04 (0.83-1.09)
[2022-02-25 10:08] LABS: HEMATOCRIT 23.1 % (32.4-45.2); HEMOGLOBIN 7.6 GM/dL (10.7-15.3); MCH 28.4 pg (25.7-33.7); MCHC 32.8 g/dl (32.0-36.0); MEAN CELL VOLUME 86.5 fl (80-96); MEAN PLT VOLUME 9.1 fl (7.5-11.1); PLATELET COUNT 139 10^3/uL (134-434); RBC 2.67 M/mm3 (3.60-5.2); RDW 14.4 % (11.6-15.6); WHITE BLOOD COUNT 7.6 K/mm3 (4.0-10.0)
[2022-02-25] MEDS: MYCOPHENOLATE MOFETIL 500 MG TABLET PO SCH ×2 (10:09→21:58)
[2022-02-25 10:22] LABS: ALBUMIN 2.8 g/dl (3.4-5.0); CALCIUM 8.1 mg/dL (8.5-10.1)
[2022-02-25 10:23] LABS: BLOOD UREA NITROGEN 97.3 mg/dL (7-18)
[2022-02-25 10:25] LABS: CREATININE 4.6 mg/dL (0.55-1.3)
[2022-02-25 10:27] LABS: BILIRUBIN,TOTAL 0.2 mg/dL (0.2-1)
[2022-02-25 10:36] LABS: ANISOCYTOSIS 1+; MACROCYTOSIS 0; PLATELET ESTIMATE INCREASED
[2022-02-25] MEDS: WARFARIN NA 10 MG TABLET PO SCH (18:48)
[2022-02-25] MEDS: ACETAMINOPHEN 325 MG TABLET (FP) PO PRN (21:59)
[2022-02-26] MEDS: hydrALAZINE HCL 25 MG TABLET (FP) PO SCH ×3 (06:27→21:32)
[2022-02-26] MEDS: SODIUM BICARBONATE 650 MG TABLET PO SCH ×3 (06:27→21:32)
[2022-02-26] MEDS: predniSONE 20 MG TABLET (UD) PO SCH ×2 (08:57→10:56)
[2022-02-26] MEDS: PANTOPRAZOLE 40 MG TABLET PO SCH ×2 (08:57→10:56)
[2022-02-26] MEDS: amLODIPine BESYLATE 10 MG TABLET (FP) PO SCH ×2 (08:58→10:56)
[2022-02-26] MEDS: CARVEDILOL 25 MG TABLET (FP) PO SCH ×3 (08:58→21:32)
[2022-02-26 08:59] LABS: HEMATOCRIT 22.6 % (32.4-45.2); HEMOGLOBIN 7.4 GM/dL (10.7-15.3); MCH 28.4 pg (25.7-33.7); MCHC 32.7 g/dl (32.0-36.0); MEAN CELL VOLUME 86.9 fl (80-96); MEAN PLT VOLUME 8.7 fl (7.5-11.1); PLATELET COUNT 127 10^3/uL (134-434); RDW 14.3 % (11.6-15.6); WHITE BLOOD COUNT 7.2 K/mm3 (4.0-10.0)
[2022-02-26] MEDS: ISOSORBIDE DINITRATE 5 MG TABLET PO SCH ×2 (08:59→14:05)
[2022-02-26] MEDS: MYCOPHENOLATE MOFETIL 500 MG TABLET PO SCH ×2 (09:00→21:32)
[2022-02-26 09:07] LABS: INR 1.15 (0.83-1.09); PROTHROMBIN TIME (PATIENT) 13.3 SEC (9.7-13.0)
[2022-02-26 09:55] LABS: CHLORIDE 115 mmol/L (98-107); SODIUM 141 mmol/L (136-145)
[2022-02-26 10:02] LABS: ALBUMIN 2.8 g/dl (3.4-5.0); ANION GAP 10 MMOL/L (8-16); CALCIUM 8.2 mg/dL (8.5-10.1); CO2 16 mmol/L (21-32); GLUCOSE,RANDOM 87 mg/dL (74-106)
[2022-02-26 10:05] LABS: CREATININE 4.6 mg/dL (0.55-1.3); SGOT/AST 7 U/L (15-37); SGPT/ALT 8 U/L (13-61)
[2022-02-26 10:07] LABS: BILIRUBIN,TOTAL < 0.1 mg/dL (0.2-1); TOT PROT 4.9 g/dl (6.4-8.2)
[2022-02-26 10:08] LABS: ALK PHOS 23 U/L (45-117)
[2022-02-26] MEDS: ENOXAPARIN NA (PORCINE) 60 MG/0.6 ML DISP.SYRIN SQ SCH (10:55)
[2022-02-26 10:58] LABS: ANISOCYTOSIS 3+; MACROCYTOSIS 0
[2022-02-26] MEDS: WARFARIN NA 10 MG TABLET PO SCH (18:53)
[2022-02-27] MEDS: SODIUM BICARBONATE 650 MG TABLET PO SCH ×3 (06:47→21:33)
[2022-02-27] MEDS: hydrALAZINE HCL 25 MG TABLET (FP) PO SCH (06:51)
[2022-02-27] MEDS: amLODIPine BESYLATE 10 MG TABLET (FP) PO SCH (09:48)
[2022-02-27] MEDS: CARVEDILOL 25 MG TABLET (FP) PO SCH ×2 (09:48→21:33)
[2022-02-27] MEDS: PANTOPRAZOLE 40 MG TABLET PO SCH (09:48)
[2022-02-27] MEDS: predniSONE 20 MG TABLET (UD) PO SCH (09:49)
[2022-02-27] MEDS: ISOSORBIDE DINITRATE 5 MG TABLET PO SCH ×2 (09:50→14:08)
[2022-02-27] MEDS: ENOXAPARIN NA (PORCINE) 60 MG/0.6 ML DISP.SYRIN SQ SCH (09:51)
[2022-02-27] MEDS: MYCOPHENOLATE MOFETIL 500 MG TABLET PO SCH ×2 (09:51→21:33)
[2022-02-27 09:52] LABS: HEMATOCRIT 22.7 % (32.4-45.2); HEMOGLOBIN 7.7 GM/dL (10.7-15.3); MCH 29.4 pg (25.7-33.7); MCHC 34.1 g/dl (32.0-36.0); MEAN CELL VOLUME 86.3 fl (80-96); MEAN PLT VOLUME 8.7 fl (7.5-11.1); PLATELET COUNT 136 10^3/uL (134-434); RBC 2.63 M/mm3 (3.60-5.2); RDW 14.4 % (11.6-15.6); WHITE BLOOD COUNT 7.7 K/mm3 (4.0-10.0)
[2022-02-27 09:53] LABS: CHLORIDE 115 mmol/L (98-107); INR 1.58 (0.83-1.09); PROTHROMBIN TIME (PATIENT) 18.2 SEC (9.7-13.0); SODIUM 142 mmol/L (136-145)
[2022-02-27 09:55] LABS: CALCIUM 8.2 mg/dL (8.5-10.1)
[2022-02-27 09:56] LABS: ALBUMIN 2.8 g/dl (3.4-5.0); ANION GAP 10 MMOL/L (8-16); CO2 18 mmol/L (21-32); GLUCOSE,RANDOM 82 mg/dL (74-106)
[2022-02-27 09:59] LABS: CREATININE 4.8 mg/dL (0.55-1.3); SGOT/AST 8 U/L (15-37); SGPT/ALT 8 U/L (13-61)
[2022-02-27 10:00] LABS: BILIRUBIN,TOTAL 0.1 mg/dL (0.2-1)
[2022-02-27 10:02] LABS: ALK PHOS 24 U/L (45-117)
[2022-02-27 10:03] LABS: BLOOD UREA NITROGEN 110.6 mg/dL (7-18)
[2022-02-27] MEDS: WARFARIN NA 10 MG TABLET PO SCH (18:07)
[2022-02-27 22:10] VITALS: RESP 20
[2022-02-28] MEDS: SODIUM BICARBONATE 650 MG TABLET PO SCH (06:23)
[2022-02-28 09:15] LABS: BASO % 0.2 % (0-2.0); EOS % 0.1 % (0-4.5); HEMATOCRIT 23.4 % (32.4-45.2); HEMOGLOBIN 7.8 GM/dL (10.7-15.3); LYMPH % 9.5 % (8-40); MCH 28.6 pg (25.7-33.7); MCHC 33.2 g/dl (32.0-36.0); MEAN CELL VOLUME 86.4 fl (80-96); MEAN PLT VOLUME 8.6 fl (7.5-11.1); MONO % 6.8 % (3.8-10.2); NEUT % 83.4 % (42.8-82.8); PLATELET COUNT 127 10^3/uL (134-434); RBC 2.71 M/mm3 (3.60-5.2); RDW 14.2 % (11.6-15.6); WHITE BLOOD COUNT 6.4 K/mm3 (4.0-10.0)
[2022-02-28 09:22] LABS: INR 2.29 (0.83-1.09); PROTHROMBIN TIME (PATIENT) 26.5 SEC (9.7-13.0)
[2022-02-28 09:27] LABS: CHLORIDE 115 mmol/L (98-107); SODIUM 143 mmol/L (136-145)
[2022-02-28 09:31] LABS: ALBUMIN 2.9 g/dl (3.4-5.0); ANION GAP 11 MMOL/L (8-16); CALCIUM 8.2 mg/dL (8.5-10.1); CO2 18 mmol/L (21-32); GLUCOSE,RANDOM 93 mg/dL (74-106)
[2022-02-28 09:34] LABS: CREATININE 4.6 mg/dL (0.55-1.3); SGOT/AST 8 U/L (15-37); SGPT/ALT 9 U/L (13-61)
[2022-02-28 09:36] LABS: BILIRUBIN,TOTAL 0.1 mg/dL (0.2-1); TOT PROT 5.2 g/dl (6.4-8.2)
[2022-02-28 09:37] LABS: ALK PHOS 26 U/L (45-117)
[2022-02-28 09:38] LABS: BLOOD UREA NITROGEN 109.3 mg/dL (7-18)
[2022-02-28] MEDS: predniSONE 20 MG TABLET (UD) PO SCH (10:01)
[2022-02-28] MEDS: CARVEDILOL 25 MG TABLET (FP) PO SCH (10:03)
[2022-02-28] MEDS: PANTOPRAZOLE 40 MG TABLET PO SCH (10:03)
[2022-02-28] MEDS: MYCOPHENOLATE MOFETIL 500 MG TABLET PO SCH (10:03)
[2022-02-28] MEDS: ISOSORBIDE DINITRATE 5 MG TABLET PO SCH (10:04)
[2022-02-28] MEDS: amLODIPine BESYLATE 10 MG TABLET (FP) PO SCH (10:05)
[2022-02-28] MEDS: ENOXAPARIN NA (PORCINE) 60 MG/0.6 ML DISP.SYRIN SQ SCH (10:06)
[2022-02-28 12:09] LABS: PLATELET ESTIMATE SLT DECREASE
[2022-02-28] MEDS ORDERED: predniSONE 20 MG TABLET (UD) PO SCH (12:30)
[2022-02-28 14:15] VITALS: BP 138/75; PULSE 93; TEMP 98
== END 2022-02-28 14:47 | disposition home or self-care (01) | DRG 346 ==
LOC: JER 10:00 → JERBED 13:13 → J4W 02-11 00:28 → J8W 02-14 21:07
PROVIDERS: ADMIT Internal Medicine; ATTEND Internal Medicine
PROC: 0TB13ZX Excision of Left Kidney, Percutaneous Approach, Diagnostic (ICD-10-PCS; principal; 2022-02-21)
DX: M32.9 Systemic lupus erythematosus, unspecified (principal); N17.9 Acute kidney failure, unspecified; I31.39 Other pericardial effusion (noninflammatory); K85.90 Acute pancreatitis without necrosis or infection, unspecified; D68.61 Antiphospholipid syndrome; E87.20 Acidosis, unspecified; I12.9 Hypertensive chronic kidney disease with stage 1 through stage 4 chronic kidney disease, or unspecified chronic kidney disease; I24.8 Other forms of acute ischemic heart disease; N18.9 Chronic kidney disease, unspecified; Z86.718 Personal history of other venous thrombosis and embolism; J98.11 Atelectasis; R93.89 Abnormal findings on diagnostic imaging of other specified body structures; K80.20 Calculus of gallbladder without cholecystitis without obstruction; D63.1 Anemia in chronic kidney disease
CPT/HCPCS: 36415; 36430; 50200; 71046-TC-FY; 74176-TC; 76775-TC; 76856-TC; 78226-TC; 80048; 80053; 81003; 82150; 82272; 82436; 82570; 82728; 82962; 83520; 83540; 83550; 83690; 84133; 84155; 84165; 84300; 84443; 84484; 84703; 85025; 85027; 85379; 85610; 85651; 85730; 86038; 86140; 86160; 86225; 86256; 86850; 86900; 86901; 86922; 87040; 87086; 88300-TC; 88329; 93005; 93010; 93306-TC; 99285-25; A9537; C9803-CS; J1644; J1756; J7517; P9058; U0003; U0005

== ENCOUNTER 2022-03-30 18:25 | Inpatient (IN) | payer OTHER ==
[2022-03-30] MEDS ORDERED: FUROSEMIDE 40 MG/4 ML INJECTABLE VIAL ONE (18:35)
[2022-03-30] MEDS ORDERED: FUROSEMIDE 40 MG/4 ML INJECTABLE VIAL IVPUSH ONE (18:35)
[2022-03-30] MEDS ORDERED: ACETAMINOPHEN 1000 MG/100 ML BAG IVPB ONE (18:37)
[2022-03-30] MEDS ORDERED: ACETAMINOPHEN INJECTION 100 ML IVPB ONE (18:39)
[2022-03-30 18:57] LABS: BASO % 0.6 % (0-2.0); EOS % 0.1 % (0-4.5); HEMOGLOBIN 8.4 GM/dL (10.7-15.3); LYMPH % 11.2 % (8-40); MCH 27.6 pg (25.7-33.7); MCHC 31.1 g/dl (32.0-36.0); MEAN CELL VOLUME 88.8 fl (80-96); MEAN PLT VOLUME 8.7 fl (7.5-11.1); NEUT % 83.1 % (42.8-82.8); PLATELET COUNT 236 10^3/uL (134-434); RBC 3.04 M/mm3 (3.60-5.2); RDW 14.6 % (11.6-15.6); WHITE BLOOD COUNT 4.2 K/mm3 (4.0-10.0)
[2022-03-30 19:07] LABS: INR 3.07 (0.83-1.09); PROTHROMBIN TIME (PATIENT) 35.7 SEC (9.7-13.0)
[2022-03-30 19:20] LABS: CHLORIDE 112 mmol/L (98-107); SODIUM 147 mmol/L (136-145)
[2022-03-30 19:21] LABS: CALCIUM 7.6 mg/dL (8.5-10.1)
[2022-03-30 19:22] LABS: ALBUMIN 2.9 g/dl (3.4-5.0); ANION GAP 13 MMOL/L (8-16); BLOOD UREA NITROGEN 71.1 mg/dL (7-18); CO2 22 mmol/L (21-32); GLUCOSE,RANDOM 99 mg/dL (74-106); MAGNESIUM 1.7 mg/dL (1.8-2.4)
[2022-03-30 19:25] LABS: CREATININE 4.6 mg/dL (0.55-1.3); SGOT/AST 9 U/L (15-37); SGPT/ALT 10 U/L (13-61); VENOUS BASE EXCESS -0.1 mmol/L (-2-2); VENOUS O2 SATURATION 75.3 % (70-80); VENOUS PH 7.346 (7.310-7.410)
[2022-03-30 19:27] LABS: BILIRUBIN,TOTAL 0.3 mg/dL (0.2-1); TOT PROT 5.1 g/dl (6.4-8.2)
[2022-03-30 19:28] LABS: ALK PHOS 33 U/L (45-117)
[2022-03-30 19:31] LABS: N-TERMINAL BNP 20728.2 pg/ml (5-125)
[2022-03-30] MEDS ORDERED: MAGNESIUM SULF 50% (8.12 MEQ/2 ML-1 GM VIAL) IVPB ONE (19:36)
[2022-03-30] MEDS ORDERED: CEFTRIAXONE 500 MG in DEXTROSE 5%-WATER - 50 ML IVPB ONE (20:03)
[2022-03-30] MEDS ORDERED: AZITHROMYCIN IVPB 500 MG in DEXTROSE 5%-WATER - 250 ML IVPB ONE (20:03)
[2022-03-30] MEDS ORDERED: MAGNESIUM SULFATE IN WATER 2 GM/50 ML IVPB IVPB ONE (20:09)
[2022-03-30] MEDS ORDERED: CEFTRIAXONE 1 GM/50 ML BAG ONE (20:09)
[2022-03-30] MEDS ORDERED: AZITHROMYCIN IVPB 500 MG/250 ML BAG IVPB ONE (20:45)
[2022-03-30 21:06] LABS: EPI CELLS 27 /uL (0-25.1); HYALINE CASTS 1 /uL (0-3.1); URINE APPEARANCE CLOUDY; URINE BACTERIA 199 /uL (0-1359); URINE BILIRUBIN NEGATIVE (NEGATIVE); URINE COLOR YELLOW; URINE GLUCOSE (UA) NEGATIVE (NEGATIVE); URINE KETONE NEGATIVE (NEGATIVE); URINE LEUK ESTERASE 2+ (NEGATIVE); URINE NITRITE NEGATIVE (NEGATIVE); URINE PROTEIN 3+ (NEGATIVE); URINE RBC 83 /uL (0-23.9); URINE UROBILINOGEN 0.2 mg/dL (0.2-1.0); URINE WBC 715 /uL (0-25.8)
[2022-03-31 08:46] LABS: CHOLESTEROL 186 mg/dL (50-200)
[2022-03-31 08:47] LABS: LDL CHOLESTEROL (ONLY SJRH) 80 mg/dL (5-100)
[2022-03-31 08:48] LABS: TRIGLYCERIDES 275 mg/dL (0-150)
[2022-03-31 08:49] LABS: HDL CHOLESTEROL 69 mg/dL (40-60)
[2022-03-31] MEDS ORDERED: FERROUS SO4 325 MG TABLET (FP) ONE (09:10)
[2022-03-31] MEDS ORDERED: CARVEDILOL 3.125 MG TABLET (FP) ONE (09:10)
[2022-03-31] MEDS ORDERED: predniSONE 20 MG TABLET (UD) ONE (09:10)
[2022-03-31] MEDS ORDERED: FUROSEMIDE 40 MG/4 ML INJECTABLE VIAL ONE (09:10)
[2022-03-31] MEDS ORDERED: CEFTRIAXONE 1 GM/50 ML BAG ONE (09:10)
[2022-03-31] MEDS: FERROUS SO4 325 MG TABLET (FP) PO SCH ×3 (09:12→17:23)
[2022-03-31] MEDS ORDERED: ACETAMINOPHEN INJECTION 100 ML IVPB ONE (09:50)
[2022-03-31] MEDS ORDERED: CEFTRIAXONE 1 GM in DEXTROSE 5%-WATER - 50 ML IVPB SCH (10:00)
[2022-03-31] MEDS ORDERED: AZITHROMYCIN IVPB 250 MG in DEXTROSE 5%-WATER - 250 ML IVPB SCH (10:00)
[2022-03-31] MEDS ORDERED: CARVEDILOL 3.125 MG TABLET (FP) PO SCH (10:00)
[2022-03-31] MEDS ORDERED: FUROSEMIDE 40 MG/4 ML INJECTABLE VIAL IVPUSH SCH (10:00)
[2022-03-31] MEDS ORDERED: predniSONE 20 MG TABLET (UD) PO SCH (10:00)
[2022-03-31] MEDS ORDERED: ACETAMINOPHEN 1000 MG/100 ML BAG IVPB ONE (10:21)
[2022-03-31] MEDS ORDERED: ACETAMINOPHEN 1000 MG/100 ML BAG IVPB PRN (11:19)
[2022-03-31] MEDS ORDERED: CEFEPIME 1 GM/100 ML BAG IVPB ONE (12:44)
[2022-03-31] MEDS ORDERED: CEFEPIME 0.5 GM in DEXTROSE 5%-WATER - 100 ML IVPB SCH (13:00)
[2022-03-31 13:03] LABS: ARTERIAL BLD GAS O2 SATURATION 98.6 % (95-98); ARTERIAL BLOOD GAS PO2 128.9 mmHg (80-100); ARTERIAL BLOOD GAS pH 7.388 (7.350-7.450)
[2022-03-31] MEDS: CEFEPIME 1 GM in DEXTROSE 5%-WATER 100 ML IVPB SCH (13:03)
[2022-03-31 13:05] LABS: ALLENS TEST POSITIVE
[2022-03-31 13:06] LABS: VENT MODE S/T; VENT RATE 12
[2022-03-31] MEDS ORDERED: predniSONE 10 MG TABLET (UD) PO SCH (16:55)
[2022-03-31] MEDS: WARFARIN NA 5 MG TABLET PO SCH (17:23)
[2022-03-31] MEDS ORDERED: FUROSEMIDE 40 MG/4 ML INJECTABLE VIAL IVPUSH ONE (17:32)
[2022-03-31 18:25] LABS: COCAINE, UR NEGATIVE (NEGATIVE); OPIATES, URI NEGATIVE (NEGATIVE); URINE AMPHETAMINES NEGATIVE (NEGATIVE); URINE BARBITURATES NEGATIVE (NEGATIVE)
[2022-03-31 18:26] LABS: METHADONE, UR NEGATIVE (NEGATIVE); PHENCYCLIDINE,URINE NEGATIVE (NEGATIVE); URINE BENZODIAZEPINES NEGATIVE (NEGATIVE)
[2022-03-31] MEDS: hydrALAZINE HCL 25 MG TABLET (FP) PO SCH (21:23)
[2022-03-31] MEDS: SODIUM BICARBONATE 650 MG TABLET PO SCH (21:23)
[2022-03-31] MEDS: MYCOPHENOLATE MOFETIL 500 MG TABLET PO SCH (21:23)
[2022-03-31] MEDS: CHLORHEXIDINE GLUCONATE 4% CLEANSER FOR DECOLONIZATION TP SCH (21:23)
[2022-03-31] MEDS: MUPIROCIN 2% TOPICAL OINTMENT FOR DECOLONIZATION NS SCH (21:23)
[2022-03-31] MEDS: CARVEDILOL 25 MG TABLET (FP) PO SCH (21:23)
[2022-03-31 21:28] LABS: HEMATOCRIT 22.5 % (32.4-45.2); HEMOGLOBIN 7.1 GM/dL (10.7-15.3); MCH 27.7 pg (25.7-33.7); MCHC 31.3 g/dl (32.0-36.0); MEAN CELL VOLUME 88.3 fl (80-96); MEAN PLT VOLUME 8.8 fl (7.5-11.1); PLATELET COUNT 148 10^3/uL (134-434); RBC 2.55 M/mm3 (3.60-5.2); RDW 14.5 % (11.6-15.6); WHITE BLOOD COUNT 7.4 K/mm3 (4.0-10.0)
[2022-03-31 21:34] LABS: INR 2.56 (0.83-1.09); PROTHROMBIN TIME (PATIENT) 29.7 SEC (9.7-13.0)
[2022-03-31 21:48] LABS: CHLORIDE 110 mmol/L (98-107); SODIUM 144 mmol/L (136-145)
[2022-03-31 21:53] LABS: ANION GAP 11 MMOL/L (8-16); BLOOD UREA NITROGEN 76.6 mg/dL (7-18); CALCIUM 7.7 mg/dL (8.5-10.1); CO2 24 mmol/L (21-32); GLUCOSE,RANDOM 116 mg/dL (74-106)
[2022-03-31 21:55] LABS: CREATININE 4.3 mg/dL (0.55-1.3)
[2022-03-31 21:56] LABS: ALK PHOS 31 U/L (45-117); SGOT/AST 9 U/L (15-37); SGPT/ALT 7 U/L (13-61)
[2022-03-31 21:57] LABS: ALBUMIN 2.2 g/dl (3.4-5.0); BILIRUBIN,TOTAL 0.2 mg/dL (0.2-1); TOT PROT 4.4 g/dl (6.4-8.2)
[2022-03-31 22:02] LABS: ANISOCYTOSIS 0; MACROCYTOSIS 0
[2022-04-01] MEDS: FUROSEMIDE 40 MG/4 ML INJECTABLE VIAL IVPUSH SCH ×2 (06:07→13:57)
[2022-04-01] MEDS: SODIUM BICARBONATE 650 MG TABLET PO SCH ×3 (06:07→21:26)
[2022-04-01] MEDS: hydrALAZINE HCL 25 MG TABLET (FP) PO SCH (06:08)
[2022-04-01 07:46] LABS: HEMATOCRIT 18.7 % (32.4-45.2); MCH 28.1 pg (25.7-33.7); MCHC 31.9 g/dl (32.0-36.0); MEAN CELL VOLUME 88.1 fl (80-96); MEAN PLT VOLUME 9.2 fl (7.5-11.1); PLATELET COUNT 112 10^3/uL (134-434); RBC 2.12 M/mm3 (3.60-5.2); RDW 14.5 % (11.6-15.6); WHITE BLOOD COUNT 4.5 K/mm3 (4.0-10.0)
[2022-04-01 07:54] LABS: INR 2.32 (0.83-1.09); PROTHROMBIN TIME (PATIENT) 26.9 SEC (9.7-13.0)
[2022-04-01 08:26] LABS: CALCIUM 7.8 mg/dL (8.5-10.1)
[2022-04-01 08:27] LABS: ALBUMIN 1.8 g/dl (3.4-5.0); BLOOD UREA NITROGEN 80.5 mg/dL (7-18); MAGNESIUM 2.3 mg/dL (1.8-2.4)
[2022-04-01 08:30] LABS: CREATININE 4.4 mg/dL (0.55-1.3); PHOSPHOROUS 4.8 mg/dL (2.5-4.9)
[2022-04-01 08:31] LABS: BILIRUBIN,TOTAL 0.2 mg/dL (0.2-1)
[2022-04-01 08:32] LABS: TOT PROT 3.8 g/dl (6.4-8.2)
[2022-04-01] MEDS: CEFEPIME 1 GM in DEXTROSE 5%-WATER 100 ML IVPB SCH (09:25)
[2022-04-01] MEDS ORDERED: PANTOPRAZOLE 40 MG TABLET PO SCH (10:00)
[2022-04-01] MEDS ORDERED: LEVOTHYROXINE SODIUM 100 MCG 5 ML VIAL IVPUSH SCH (12:30)
[2022-04-01] MEDS: FERROUS SO4 325 MG TABLET (FP) PO SCH ×3 (12:35→17:17)
[2022-04-01] MEDS: amLODIPine BESYLATE 10 MG TABLET (FP) PO SCH (12:35)
[2022-04-01] MEDS: ROSUVASTATIN CA 10 MG TABLET PO SCH (12:35)
[2022-04-01] MEDS: ISOSORBIDE DINITRATE 5 MG TABLET PO SCH ×2 (12:35→17:16)
[2022-04-01] MEDS: CARVEDILOL 25 MG TABLET (FP) PO SCH ×2 (12:35→21:26)
[2022-04-01] MEDS: MUPIROCIN 2% TOPICAL OINTMENT FOR DECOLONIZATION NS SCH ×2 (12:36→21:26)
[2022-04-01] MEDS: MYCOPHENOLATE MOFETIL 500 MG TABLET PO SCH ×2 (12:36→21:26)
[2022-04-01] MEDS: methylPREDNISolone NA SUCC 125 MG/2 ML VIAL IVPB SCH (13:57)
[2022-04-01] MEDS: WARFARIN NA 5 MG TABLET PO SCH (17:16)
[2022-04-01] MEDS: CHLORHEXIDINE GLUCONATE 4% CLEANSER FOR DECOLONIZATION TP SCH (21:27)
[2022-04-01 22:19] LABS: HEMATOCRIT 22.8 % (32.4-45.2); HEMOGLOBIN 7.3 GM/dL (10.7-15.3); MCH 28.2 pg (25.7-33.7); MCHC 31.9 g/dl (32.0-36.0); MEAN CELL VOLUME 88.4 fl (80-96); MEAN PLT VOLUME 9.4 fl (7.5-11.1); PLATELET COUNT 139 10^3/uL (134-434); RBC 2.58 M/mm3 (3.60-5.2); RDW 14.5 % (11.6-15.6); WHITE BLOOD COUNT 6.2 K/mm3 (4.0-10.0)
[2022-04-01 23:22] LABS: ANISOCYTOSIS 1+; MACROCYTOSIS 0; PLATELET ESTIMATE NORMAL; TOXIC GRANULATION 1+
[2022-04-02] MEDS: SODIUM BICARBONATE 650 MG TABLET PO SCH ×3 (06:32→21:34)
[2022-04-02] MEDS: FUROSEMIDE 40 MG/4 ML INJECTABLE VIAL IVPUSH SCH ×2 (06:32→13:48)
[2022-04-02] MEDS: FERROUS SO4 325 MG TABLET (FP) PO SCH ×3 (07:55→19:25)
[2022-04-02] MEDS: ISOSORBIDE DINITRATE 5 MG TABLET PO SCH ×2 (07:55→13:49)
[2022-04-02] MEDS: methylPREDNISolone NA SUCC 125 MG/2 ML VIAL IVPB SCH (09:03)
[2022-04-02] MEDS: CEFEPIME 1 GM in DEXTROSE 5%-WATER 100 ML IVPB SCH (09:03)
[2022-04-02] MEDS: ROSUVASTATIN CA 10 MG TABLET PO SCH (09:03)
[2022-04-02] MEDS: amLODIPine BESYLATE 10 MG TABLET (FP) PO SCH (09:03)
[2022-04-02] MEDS: MYCOPHENOLATE MOFETIL 500 MG TABLET PO SCH ×2 (09:03→21:34)
[2022-04-02] MEDS: MUPIROCIN 2% TOPICAL OINTMENT FOR DECOLONIZATION NS SCH ×2 (09:04→21:34)
[2022-04-02] MEDS: CARVEDILOL 25 MG TABLET (FP) PO SCH ×2 (09:04→21:34)
[2022-04-02 18:24] LABS: INR 3.14 (0.83-1.09); PROTHROMBIN TIME (PATIENT) 36.5 SEC (9.7-13.0)
[2022-04-02] MEDS: WARFARIN NA 5 MG TABLET PO SCH (19:26)
[2022-04-02] MEDS: CHLORHEXIDINE GLUCONATE 4% CLEANSER FOR DECOLONIZATION TP SCH (21:34)
[2022-04-03] MEDS: FUROSEMIDE 40 MG/4 ML INJECTABLE VIAL IVPUSH SCH ×2 (05:27→14:23)
[2022-04-03] MEDS: SODIUM BICARBONATE 650 MG TABLET PO SCH ×3 (05:27→21:41)
[2022-04-03 07:04] LABS: INR 3.35 (0.83-1.09)
[2022-04-03 07:27] LABS: BLOOD UREA NITROGEN 88.4 mg/dL (7-18)
[2022-04-03 07:30] LABS: CREATININE 4.3 mg/dL (0.55-1.3)
[2022-04-03 07:32] LABS: TOT PROT 4.8 g/dl (6.4-8.2)
[2022-04-03 07:34] LABS: ALBUMIN 2.3 g/dl (3.4-5.0)
[2022-04-03 08:04] LABS: HEMATOCRIT 22.3 % (32.4-45.2); HEMOGLOBIN 7.1 GM/dL (10.7-15.3); MCH 28.1 pg (25.7-33.7); MCHC 31.7 g/dl (32.0-36.0); MEAN CELL VOLUME 88.7 fl (80-96); MEAN PLT VOLUME 9.6 fl (7.5-11.1); PLATELET COUNT 151 10^3/uL (134-434); RBC 2.51 M/mm3 (3.60-5.2); RDW 14.3 % (11.6-15.6); WHITE BLOOD COUNT 5.9 K/mm3 (4.0-10.0)
[2022-04-03] MEDS: FERROUS SO4 325 MG TABLET (FP) PO SCH ×3 (08:15→17:31)
[2022-04-03] MEDS: ISOSORBIDE DINITRATE 5 MG TABLET PO SCH ×2 (08:15→12:46)
[2022-04-03 09:22] LABS: ANISOCYTOSIS 1+; MACROCYTOSIS 0; PLATELET ESTIMATE DECREASED
[2022-04-03] MEDS: CEFTRIAXONE 1 GM in DEXTROSE 5%-WATER - 50 ML IVPB SCH (10:18)
[2022-04-03] MEDS: methylPREDNISolone NA SUCC 125 MG/2 ML VIAL IVPB SCH (10:22)
[2022-04-03] MEDS: CARVEDILOL 25 MG TABLET (FP) PO SCH ×2 (10:27→21:40)
[2022-04-03] MEDS: amLODIPine BESYLATE 10 MG TABLET (FP) PO SCH (10:27)
[2022-04-03] MEDS: ROSUVASTATIN CA 10 MG TABLET PO SCH (10:27)
[2022-04-03] MEDS: MYCOPHENOLATE MOFETIL 500 MG TABLET PO SCH ×2 (10:36→21:40)
[2022-04-03] MEDS: MUPIROCIN 2% TOPICAL OINTMENT FOR DECOLONIZATION NS SCH ×2 (10:36→21:40)
[2022-04-03 14:19] LABS: EPI CELLS 12 /uL (0-25.1); HYALINE CASTS 6 /uL (0-3.1); URINE APPEARANCE CLOUDY; URINE BACTERIA 13 /uL (0-1359); URINE BILIRUBIN NEGATIVE (NEGATIVE); URINE COLOR YELLOW; URINE GLUCOSE (UA) NEGATIVE (NEGATIVE); URINE KETONE NEGATIVE (NEGATIVE); URINE LEUK ESTERASE 2+ (NEGATIVE); URINE NITRITE NEGATIVE (NEGATIVE); URINE PROTEIN 3+ (NEGATIVE); URINE RBC 42 /uL (0-23.9); URINE UROBILINOGEN 0.2 mg/dL (0.2-1.0); URINE WBC 974 /uL (0-25.8)
[2022-04-03] MEDS: WARFARIN NA 5 MG TABLET PO SCH (17:09)
[2022-04-03] MEDS: CHLORHEXIDINE GLUCONATE 4% CLEANSER FOR DECOLONIZATION TP SCH (21:41)
[2022-04-04] MEDS: SODIUM BICARBONATE 650 MG TABLET PO SCH ×3 (06:10→23:32)
[2022-04-04] MEDS: FUROSEMIDE 40 MG/4 ML INJECTABLE VIAL IVPUSH SCH ×2 (06:10→14:44)
[2022-04-04 07:41] LABS: HEMATOCRIT 28.3 % (32.4-45.2); HEMOGLOBIN 9.1 GM/dL (10.7-15.3); MCH 27.9 pg (25.7-33.7); MCHC 32.1 g/dl (32.0-36.0); MEAN CELL VOLUME 86.8 fl (80-96); MEAN PLT VOLUME 9.7 fl (7.5-11.1); PLATELET COUNT 164 10^3/uL (134-434); RBC 3.26 M/mm3 (3.60-5.2); RDW 14.5 % (11.6-15.6); WHITE BLOOD COUNT 7.1 K/mm3 (4.0-10.0)
[2022-04-04 07:47] LABS: INR 2.82 (0.83-1.09); PROTHROMBIN TIME (PATIENT) 32.8 SEC (9.7-13.0)
[2022-04-04] MEDS: ISOSORBIDE DINITRATE 5 MG TABLET PO SCH ×2 (07:50→12:52)
[2022-04-04] MEDS: FERROUS SO4 325 MG TABLET (FP) PO SCH ×3 (07:50→17:55)
[2022-04-04 08:02] LABS: ALBUMIN 2.6 g/dl (3.4-5.0); BLOOD UREA NITROGEN 94.4 mg/dL (7-18); CALCIUM 8.1 mg/dL (8.5-10.1); MAGNESIUM 2.2 mg/dL (1.8-2.4)
[2022-04-04 08:05] LABS: CREATININE 4.3 mg/dL (0.55-1.3); PHOSPHOROUS 6.1 mg/dL (2.5-4.9)
[2022-04-04 08:07] LABS: BILIRUBIN,TOTAL 0.4 mg/dL (0.2-1); TOT PROT 5.2 g/dl (6.4-8.2)
[2022-04-04 08:50] LABS: ANISOCYTOSIS 0; HELMET CELLS 0; HOWELL-JOLLY BODIES 0; MACROCYTOSIS 0; OVALOCYTE 0; ROULEAU 0; SICKELED CELLS 0; TARGET CELLS 0; TEAR DROP CELLS 0; TOXIC GRANULATION 0
[2022-04-04] MEDS: amLODIPine BESYLATE 10 MG TABLET (FP) PO SCH (09:08)
[2022-04-04] MEDS: ROSUVASTATIN CA 10 MG TABLET PO SCH (09:08)
[2022-04-04] MEDS: CARVEDILOL 25 MG TABLET (FP) PO SCH ×2 (09:08→23:32)
[2022-04-04] MEDS: CEFTRIAXONE 1 GM in DEXTROSE 5%-WATER - 50 ML IVPB SCH (09:08)
[2022-04-04] MEDS: MYCOPHENOLATE MOFETIL 500 MG TABLET PO SCH ×2 (09:08→23:32)
[2022-04-04] MEDS: methylPREDNISolone NA SUCC 40 MG/1 ML VIAL IVPB SCH (09:43)
[2022-04-04] MEDS: WARFARIN NA 5 MG TABLET PO SCH (17:55)
[2022-04-05] MEDS: SODIUM BICARBONATE 650 MG TABLET PO SCH ×2 (06:56→23:01)
[2022-04-05] MEDS: FUROSEMIDE 40 MG/4 ML INJECTABLE VIAL IVPUSH SCH ×2 (06:58→15:11)
[2022-04-05 07:34] LABS: INR 2.81 (0.83-1.09); PROTHROMBIN TIME (PATIENT) 32.6 SEC (9.7-13.0)
[2022-04-05 07:51] LABS: ALBUMIN 2.5 g/dl (3.4-5.0); BLOOD UREA NITROGEN 100.8 mg/dL (7-18)
[2022-04-05 07:54] LABS: CREATININE 4.2 mg/dL (0.55-1.3)
[2022-04-05 07:55] LABS: BILIRUBIN,TOTAL 0.4 mg/dL (0.2-1); TOT PROT 5.1 g/dl (6.4-8.2)
[2022-04-05] MEDS: FERROUS SO4 325 MG TABLET (FP) PO SCH ×3 (09:58→17:48)
[2022-04-05] MEDS: CEFTRIAXONE 1 GM in DEXTROSE 5%-WATER - 50 ML IVPB SCH (09:58)
[2022-04-05] MEDS: ROSUVASTATIN CA 10 MG TABLET PO SCH (09:58)
[2022-04-05] MEDS: amLODIPine BESYLATE 10 MG TABLET (FP) PO SCH (09:58)
[2022-04-05] MEDS: methylPREDNISolone NA SUCC 40 MG/1 ML VIAL IVPB SCH (09:58)
[2022-04-05] MEDS: CARVEDILOL 25 MG TABLET (FP) PO SCH ×2 (09:58→23:01)
[2022-04-05] MEDS: ISOSORBIDE DINITRATE 5 MG TABLET PO SCH ×2 (09:58→12:26)
[2022-04-05] MEDS: MYCOPHENOLATE MOFETIL 500 MG TABLET PO SCH ×2 (10:02→23:01)
[2022-04-05 15:43] VITALS: BMI 29.7
[2022-04-05] MEDS: WARFARIN NA 5 MG TABLET PO SCH (17:48)
[2022-04-06] MEDS: FUROSEMIDE 40 MG/4 ML INJECTABLE VIAL IVPUSH SCH (07:06)
[2022-04-06 08:28] LABS: HEMATOCRIT 23.6 % (32.4-45.2); HEMOGLOBIN 7.7 GM/dL (10.7-15.3); MCHC 32.5 g/dl (32.0-36.0); MEAN CELL VOLUME 86.3 fl (80-96); MEAN PLT VOLUME 10.1 fl (7.5-11.1); PLATELET COUNT 168 10^3/uL (134-434); RBC 2.74 M/mm3 (3.60-5.2); RDW 14.5 % (11.6-15.6); WHITE BLOOD COUNT 3.6 K/mm3 (4.0-10.0)
[2022-04-06 08:29] LABS: INR 3.15 (0.83-1.09); PROTHROMBIN TIME (PATIENT) 36.6 SEC (9.7-13.0)
[2022-04-06] MEDS: FERROUS SO4 325 MG TABLET (FP) PO SCH ×3 (08:30→17:14)
[2022-04-06] MEDS: ISOSORBIDE DINITRATE 5 MG TABLET PO SCH ×2 (08:30→13:21)
[2022-04-06 08:45] LABS: CHLORIDE 102 mmol/L (98-107); SODIUM 140 mmol/L (136-145)
[2022-04-06 08:46] LABS: CALCIUM 7.9 mg/dL (8.5-10.1)
[2022-04-06 08:47] LABS: ALBUMIN 2.6 g/dl (3.4-5.0); ANION GAP 17 MMOL/L (8-16); CO2 22 mmol/L (21-32); GLUCOSE,RANDOM 108 mg/dL (74-106)
[2022-04-06 08:50] LABS: CREATININE 4.1 mg/dL (0.55-1.3); SGOT/AST 9 U/L (15-37); SGPT/ALT 9 U/L (13-61)
[2022-04-06 08:52] LABS: BILIRUBIN,TOTAL 0.7 mg/dL (0.2-1); TOT PROT 4.8 g/dl (6.4-8.2)
[2022-04-06 08:53] LABS: ALK PHOS 29 U/L (45-117)
[2022-04-06 09:32] LABS: ANISOCYTOSIS 2+; MACROCYTOSIS 0; PLATELET ESTIMATE NORMAL
[2022-04-06] MEDS: ROSUVASTATIN CA 10 MG TABLET PO SCH (10:23)
[2022-04-06] MEDS: amLODIPine BESYLATE 10 MG TABLET (FP) PO SCH (10:23)
[2022-04-06] MEDS: CARVEDILOL 25 MG TABLET (FP) PO SCH ×2 (10:23→22:47)
[2022-04-06] MEDS: CEFTRIAXONE 1 GM in DEXTROSE 5%-WATER - 50 ML IVPB SCH (10:24)
[2022-04-06] MEDS: SODIUM BICARBONATE 650 MG TABLET PO SCH ×2 (10:24→22:47)
[2022-04-06] MEDS: methylPREDNISolone NA SUCC 40 MG/1 ML VIAL IVPB SCH (10:24)
[2022-04-06] MEDS: MYCOPHENOLATE MOFETIL 500 MG TABLET PO SCH ×2 (10:28→22:47)
[2022-04-06] MEDS: WARFARIN NA 5 MG TABLET PO SCH (17:14)
[2022-04-07] MEDS ORDERED: CEFTRIAXONE 1 GM in DEXTROSE 5%-WATER - 50 ML IVPB SCH (10:00)
[2022-04-07] MEDS: MYCOPHENOLATE MOFETIL 500 MG TABLET PO SCH ×2 (10:01→22:52)
[2022-04-07] MEDS: amLODIPine BESYLATE 10 MG TABLET (FP) PO SCH (10:02)
[2022-04-07] MEDS: FERROUS SO4 325 MG TABLET (FP) PO SCH ×3 (10:02→17:18)
[2022-04-07] MEDS: CARVEDILOL 25 MG TABLET (FP) PO SCH ×2 (10:02→22:52)
[2022-04-07] MEDS: SODIUM BICARBONATE 650 MG TABLET PO SCH ×2 (10:02→22:52)
[2022-04-07] MEDS: ROSUVASTATIN CA 10 MG TABLET PO SCH (10:02)
[2022-04-07] MEDS: methylPREDNISolone NA SUCC 40 MG/1 ML VIAL IVPB SCH (10:02)
[2022-04-07] MEDS: ISOSORBIDE DINITRATE 5 MG TABLET PO SCH ×2 (10:02→12:19)
[2022-04-07] MEDS: FAMOTIDINE 10 MG TABLET PO SCH (14:24)
[2022-04-07] MEDS ORDERED: WARFARIN NA 5 MG TABLET PO SCH (18:00)
[2022-04-07 18:17] LABS: INR 3.42 (0.83-1.09); PROTHROMBIN TIME (PATIENT) 39.8 SEC (9.7-13.0)
[2022-04-08] MEDS: ACETAMINOPHEN 325 MG TABLET (FP) PO PRN (03:44)
[2022-04-08 09:38] LABS: MCH 27.2 pg (25.7-33.7); MCHC 32.2 g/dl (32.0-36.0); MEAN CELL VOLUME 84.5 fl (80-96); MEAN PLT VOLUME 9.6 fl (7.5-11.1); PLATELET COUNT 146 10^3/uL (134-434); RBC 2.25 M/mm3 (3.60-5.2); RDW 14.1 % (11.6-15.6); WHITE BLOOD COUNT 4.5 K/mm3 (4.0-10.0)
[2022-04-08 09:40] LABS: INR 3.52 (0.83-1.09)
[2022-04-08] MEDS: CARVEDILOL 25 MG TABLET (FP) PO SCH ×2 (09:40→21:48)
[2022-04-08] MEDS: SODIUM BICARBONATE 650 MG TABLET PO SCH ×2 (09:40→21:48)
[2022-04-08] MEDS: MYCOPHENOLATE MOFETIL 500 MG TABLET PO SCH ×2 (09:40→22:41)
[2022-04-08] MEDS: ROSUVASTATIN CA 10 MG TABLET PO SCH (09:40)
[2022-04-08] MEDS: amLODIPine BESYLATE 10 MG TABLET (FP) PO SCH (09:41)
[2022-04-08] MEDS: methylPREDNISolone NA SUCC 40 MG/1 ML VIAL IVPB SCH (09:41)
[2022-04-08] MEDS: FERROUS SO4 325 MG TABLET (FP) PO SCH ×3 (09:41→18:07)
[2022-04-08] MEDS: ISOSORBIDE DINITRATE 5 MG TABLET PO SCH ×2 (09:41→12:42)
[2022-04-08 09:44] LABS: HEMOGLOBIN 6.1 GM/dL (10.7-15.3)
[2022-04-08 09:52] LABS: CHLORIDE 101 mmol/L (98-107); SODIUM 138 mmol/L (136-145)
[2022-04-08 10:03] LABS: CALCIUM 7.8 mg/dL (8.5-10.1)
[2022-04-08 10:04] LABS: ALBUMIN 2.5 g/dl (3.4-5.0); ANION GAP 15 MMOL/L (8-16); CO2 22 mmol/L (21-32); GLUCOSE,RANDOM 116 mg/dL (74-106)
[2022-04-08 10:06] LABS: CREATININE 4.1 mg/dL (0.55-1.3)
[2022-04-08 10:07] LABS: SGOT/AST 11 U/L (15-37); SGPT/ALT 9 U/L (13-61)
[2022-04-08 10:08] LABS: BILIRUBIN,TOTAL 0.4 mg/dL (0.2-1); TOT PROT 4.5 g/dl (6.4-8.2)
[2022-04-08 10:09] LABS: ALK PHOS 25 U/L (45-117)
[2022-04-08 10:20] LABS: BLOOD UREA NITROGEN 128.3 mg/dL (7-18)
[2022-04-08 10:37] LABS: ANISOCYTOSIS 3+; MACROCYTOSIS 0; PLATELET ESTIMATE DECREASED
[2022-04-08] MEDS ORDERED: FUROSEMIDE 40 MG/4 ML INJECTABLE VIAL IVPUSH ONE (15:41)
[2022-04-08] MEDS: WARFARIN NA 5 MG TABLET PO SCH (18:05)
[2022-04-09 09:15] LABS: HEMATOCRIT 23.4 % (32.4-45.2); HEMOGLOBIN 7.8 GM/dL (10.7-15.3); MCH 27.7 pg (25.7-33.7); MCHC 33.2 g/dl (32.0-36.0); MEAN CELL VOLUME 83.4 fl (80-96); MEAN PLT VOLUME 9.8 fl (7.5-11.1); PLATELET COUNT 168 10^3/uL (134-434); RBC 2.81 M/mm3 (3.60-5.2); RDW 14.7 % (11.6-15.6); WHITE BLOOD COUNT 7.6 K/mm3 (4.0-10.0)
[2022-04-09] MEDS: SODIUM BICARBONATE 650 MG TABLET PO SCH ×2 (09:16→22:22)
[2022-04-09] MEDS: FAMOTIDINE 10 MG TABLET PO SCH (09:16)
[2022-04-09] MEDS: amLODIPine BESYLATE 10 MG TABLET (FP) PO SCH (09:16)
[2022-04-09] MEDS: FERROUS SO4 325 MG TABLET (FP) PO SCH ×3 (09:16→18:31)
[2022-04-09] MEDS: ROSUVASTATIN CA 10 MG TABLET PO SCH (09:16)
[2022-04-09] MEDS: ISOSORBIDE DINITRATE 5 MG TABLET PO SCH ×2 (09:16→13:24)
[2022-04-09] MEDS: CARVEDILOL 25 MG TABLET (FP) PO SCH ×2 (09:16→22:22)
[2022-04-09] MEDS: MYCOPHENOLATE MOFETIL 500 MG TABLET PO SCH ×2 (09:17→22:22)
[2022-04-09] MEDS: methylPREDNISolone NA SUCC 40 MG/1 ML VIAL IVPB SCH (09:17)
[2022-04-09 09:37] LABS: CHLORIDE 104 mmol/L (98-107); SODIUM 140 mmol/L (136-145)
[2022-04-09 09:43] LABS: CALCIUM 7.7 mg/dL (8.5-10.1)
[2022-04-09 09:44] LABS: ALBUMIN 2.7 g/dl (3.4-5.0); ANION GAP 13 MMOL/L (8-16); CO2 23 mmol/L (21-32); GLUCOSE,RANDOM 105 mg/dL (74-106)
[2022-04-09 09:47] LABS: CREATININE 4.2 mg/dL (0.55-1.3); SGOT/AST 11 U/L (15-37); SGPT/ALT 10 U/L (13-61)
[2022-04-09 09:48] LABS: BILIRUBIN,TOTAL 0.8 mg/dL (0.2-1)
[2022-04-09 09:49] LABS: TOT PROT 4.6 g/dl (6.4-8.2)
[2022-04-09 09:50] LABS: ALK PHOS 26 U/L (45-117)
[2022-04-09 10:03] LABS: BLOOD UREA NITROGEN 128.3 mg/dL (7-18)
[2022-04-09 19:06] LABS: INR 2.06 (0.83-1.09); PROTHROMBIN TIME (PATIENT) 23.9 SEC (9.7-13.0)
[2022-04-09] MEDS: WARFARIN NA 5 MG TABLET PO SCH (22:22)
[2022-04-10 09:24] LABS: HEMATOCRIT 22.6 % (32.4-45.2); HEMOGLOBIN 7.5 GM/dL (10.7-15.3); MCH 27.6 pg (25.7-33.7); MCHC 33.1 g/dl (32.0-36.0); MEAN CELL VOLUME 83.4 fl (80-96); MEAN PLT VOLUME 9.9 fl (7.5-11.1); PLATELET COUNT 171 10^3/uL (134-434); RBC 2.71 M/mm3 (3.60-5.2); RDW 14.5 % (11.6-15.6)
[2022-04-10 09:31] LABS: INR 1.87 (0.83-1.09); PROTHROMBIN TIME (PATIENT) 21.6 SEC (9.7-13.0)
[2022-04-10] MEDS: amLODIPine BESYLATE 10 MG TABLET (FP) PO SCH (09:42)
[2022-04-10] MEDS: FERROUS SO4 325 MG TABLET (FP) PO SCH ×3 (09:42→17:19)
[2022-04-10] MEDS: CARVEDILOL 25 MG TABLET (FP) PO SCH ×2 (09:42→21:54)
[2022-04-10] MEDS: SODIUM BICARBONATE 650 MG TABLET PO SCH ×2 (09:42→21:55)
[2022-04-10] MEDS: MYCOPHENOLATE MOFETIL 500 MG TABLET PO SCH ×2 (09:42→21:53)
[2022-04-10] MEDS: ROSUVASTATIN CA 10 MG TABLET PO SCH (09:42)
[2022-04-10 09:43] LABS: CHLORIDE 102 mmol/L (98-107); SODIUM 139 mmol/L (136-145)
[2022-04-10] MEDS: ISOSORBIDE DINITRATE 5 MG TABLET PO SCH ×2 (09:43→14:06)
[2022-04-10 09:48] LABS: ALBUMIN 2.6 g/dl (3.4-5.0); ANION GAP 14 MMOL/L (8-16); CALCIUM 7.8 mg/dL (8.5-10.1); CO2 22 mmol/L (21-32); GLUCOSE,RANDOM 100 mg/dL (74-106)
[2022-04-10 09:51] LABS: CREATININE 4.3 mg/dL (0.55-1.3); SGOT/AST 9 U/L (15-37); SGPT/ALT 11 U/L (13-61)
[2022-04-10 09:52] LABS: BILIRUBIN,TOTAL 0.4 mg/dL (0.2-1); TOT PROT 4.6 g/dl (6.4-8.2)
[2022-04-10 09:53] LABS: ALK PHOS 26 U/L (45-117)
[2022-04-10 10:17] LABS: BLOOD UREA NITROGEN 129.5 mg/dL (7-18)
[2022-04-10 10:22] LABS: ANISOCYTOSIS 0; HELMET CELLS 0; HOWELL-JOLLY BODIES 0; MACROCYTOSIS 0; OVALOCYTE 0; ROULEAU 0; SICKELED CELLS 0; TARGET CELLS 0; TEAR DROP CELLS 0; TOXIC GRANULATION 0
[2022-04-10] MEDS: methylPREDNISolone NA SUCC 40 MG/1 ML VIAL IVPB SCH (11:26)
[2022-04-10] MEDS: MINERAL OIL/PET HY-PHL TOPICAL OINTMENT 454 GM JAR TP SCH ×2 (16:22→21:52)
[2022-04-10] MEDS: WARFARIN NA 5 MG TABLET PO SCH (17:18)
[2022-04-11] MEDS: FERROUS SO4 325 MG TABLET (FP) PO SCH ×3 (08:53→17:18)
[2022-04-11] MEDS: ISOSORBIDE DINITRATE 5 MG TABLET PO SCH ×2 (08:53→13:16)
[2022-04-11] MEDS: ROSUVASTATIN CA 10 MG TABLET PO SCH (09:05)
[2022-04-11] MEDS: methylPREDNISolone NA SUCC 40 MG/1 ML VIAL IVPB SCH (09:05)
[2022-04-11] MEDS: CARVEDILOL 25 MG TABLET (FP) PO SCH ×2 (09:05→23:09)
[2022-04-11] MEDS: FAMOTIDINE 10 MG TABLET PO SCH (09:05)
[2022-04-11] MEDS: SODIUM BICARBONATE 650 MG TABLET PO SCH ×2 (09:05→23:09)
[2022-04-11] MEDS: amLODIPine BESYLATE 10 MG TABLET (FP) PO SCH (09:05)
[2022-04-11] MEDS: MINERAL OIL/PET HY-PHL TOPICAL OINTMENT 454 GM JAR TP SCH ×2 (09:06→23:09)
[2022-04-11] MEDS: MYCOPHENOLATE MOFETIL 500 MG TABLET PO SCH ×2 (09:07→23:08)
[2022-04-11 16:41] LABS: INR 1.68 (0.83-1.09); PROTHROMBIN TIME (PATIENT) 19.4 SEC (9.7-13.0)
[2022-04-11] MEDS: WARFARIN NA 5 MG TABLET PO SCH (17:18)
[2022-04-11] MEDS ORDERED: WARFARIN NA 5 MG TABLET PO ONE (19:33)
[2022-04-12] MEDS: methylPREDNISolone NA SUCC 40 MG/1 ML VIAL IVPB SCH (09:48)
[2022-04-12] MEDS: amLODIPine BESYLATE 10 MG TABLET (FP) PO SCH (09:49)
[2022-04-12] MEDS: SODIUM BICARBONATE 650 MG TABLET PO SCH ×2 (09:49→21:38)
[2022-04-12] MEDS: ROSUVASTATIN CA 10 MG TABLET PO SCH (09:49)
[2022-04-12] MEDS: FERROUS SO4 325 MG TABLET (FP) PO SCH ×3 (09:49→18:02)
[2022-04-12] MEDS: CARVEDILOL 25 MG TABLET (FP) PO SCH ×2 (09:49→21:38)
[2022-04-12] MEDS: ISOSORBIDE DINITRATE 5 MG TABLET PO SCH ×2 (09:50→12:25)
[2022-04-12] MEDS: MINERAL OIL/PET HY-PHL TOPICAL OINTMENT 454 GM JAR TP SCH ×2 (10:19→21:39)
[2022-04-12] MEDS: MYCOPHENOLATE MOFETIL 500 MG TABLET PO SCH ×2 (10:20→21:39)
[2022-04-12 10:50] LABS: HEMATOCRIT 24.1 % (32.4-45.2); HEMOGLOBIN 7.9 GM/dL (10.7-15.3); MCH 27.5 pg (25.7-33.7); MCHC 32.7 g/dl (32.0-36.0); MEAN PLT VOLUME 9.4 fl (7.5-11.1); PLATELET COUNT 177 10^3/uL (134-434); RBC 2.87 M/mm3 (3.60-5.2); RDW 14.6 % (11.6-15.6); WHITE BLOOD COUNT 9.6 K/mm3 (4.0-10.0)
[2022-04-12 10:58] LABS: INR 1.95 (0.83-1.09); PROTHROMBIN TIME (PATIENT) 22.6 SEC (9.7-13.0)
[2022-04-12 11:04] LABS: CHLORIDE 104 mmol/L (98-107); SODIUM 141 mmol/L (136-145)
[2022-04-12 11:10] LABS: ALBUMIN 2.7 g/dl (3.4-5.0); ANION GAP 14 MMOL/L (8-16); CALCIUM 8.1 mg/dL (8.5-10.1); CO2 22 mmol/L (21-32); GLUCOSE,RANDOM 133 mg/dL (74-106)
[2022-04-12 11:12] LABS: SGPT/ALT 12 U/L (13-61)
[2022-04-12 11:13] LABS: CREATININE 4.3 mg/dL (0.55-1.3); SGOT/AST 9 U/L (15-37)
[2022-04-12 11:14] LABS: BILIRUBIN,TOTAL 0.3 mg/dL (0.2-1); TOT PROT 4.8 g/dl (6.4-8.2)
[2022-04-12 11:15] LABS: ALK PHOS 28 U/L (45-117)
[2022-04-12 11:17] LABS: BLOOD UREA NITROGEN 127.8 mg/dL (7-18)
[2022-04-12 11:53] LABS: ANISOCYTOSIS 0; HELMET CELLS 0; HOWELL-JOLLY BODIES 0; MACROCYTOSIS 0; OVALOCYTE 0; ROULEAU 0; SICKELED CELLS 0; TARGET CELLS 0; TEAR DROP CELLS 0; TOXIC GRANULATION 0
[2022-04-12] MEDS ORDERED: LACTULOSE 20 GM/30 ML UDC (FOR ORAL USE ONLY) PO ONE ×3 (15:00→22:00)
[2022-04-12] MEDS: ENOXAPARIN NA (PORCINE) 80 MG/0.8 ML DISP.SYRIN SQ SCH (18:20)
[2022-04-12] MEDS ORDERED: ENOXAPARIN NA (PORCINE) 80 MG/0.8 ML DISP.SYRIN SQ SCH (22:00)
[2022-04-13] MEDS: ISOSORBIDE DINITRATE 5 MG TABLET PO SCH ×2 (08:02→13:11)
[2022-04-13] MEDS: FERROUS SO4 325 MG TABLET (FP) PO SCH ×3 (08:02→17:33)
[2022-04-13] MEDS: ACETAMINOPHEN 325 MG TABLET (FP) PO PRN (10:16)
[2022-04-13] MEDS: amLODIPine BESYLATE 10 MG TABLET (FP) PO SCH (10:19)
[2022-04-13] MEDS: CARVEDILOL 25 MG TABLET (FP) PO SCH ×2 (10:19→21:44)
[2022-04-13] MEDS: ROSUVASTATIN CA 10 MG TABLET PO SCH (10:19)
[2022-04-13] MEDS: FAMOTIDINE 10 MG TABLET PO SCH (10:19)
[2022-04-13] MEDS: SODIUM BICARBONATE 650 MG TABLET PO SCH ×2 (10:20→21:44)
[2022-04-13] MEDS: MINERAL OIL/PET HY-PHL TOPICAL OINTMENT 454 GM JAR TP SCH ×2 (10:21→21:45)
[2022-04-13] MEDS: MYCOPHENOLATE MOFETIL 500 MG TABLET PO SCH ×2 (10:23→21:45)
[2022-04-13 10:33] LABS: HEMATOCRIT 23.7 % (32.4-45.2); HEMOGLOBIN 7.7 GM/dL (10.7-15.3); MCH 27.3 pg (25.7-33.7); MCHC 32.3 g/dl (32.0-36.0); MEAN CELL VOLUME 84.5 fl (80-96); MEAN PLT VOLUME 9.5 fl (7.5-11.1); PLATELET COUNT 170 10^3/uL (134-434); RDW 14.5 % (11.6-15.6); WHITE BLOOD COUNT 8.1 K/mm3 (4.0-10.0)
[2022-04-13 10:58] LABS: CHLORIDE 108 mmol/L (98-107); SODIUM 145 mmol/L (136-145)
[2022-04-13 11:00] LABS: ANION GAP 15 MMOL/L (8-16); CALCIUM 8.2 mg/dL (8.5-10.1); CO2 23 mmol/L (21-32); GLUCOSE,RANDOM 95 mg/dL (74-106)
[2022-04-13 11:02] LABS: ALBUMIN 2.8 g/dl (3.4-5.0)
[2022-04-13 11:03] LABS: SGPT/ALT 11 U/L (13-61)
[2022-04-13 11:05] LABS: BILIRUBIN,TOTAL 0.2 mg/dL (0.2-1); CREATININE 4.1 mg/dL (0.55-1.3); SGOT/AST 11 U/L (15-37); TOT PROT 4.8 g/dl (6.4-8.2)
[2022-04-13 11:07] LABS: ALK PHOS 26 U/L (45-117)
[2022-04-13 11:09] LABS: BLOOD UREA NITROGEN 121.5 mg/dL (7-18)
[2022-04-13] MEDS: methylPREDNISolone NA SUCC 40 MG/1 ML VIAL IVPB SCH (11:22)
[2022-04-13] MEDS ORDERED: POLYETHYLENE GLYCOL 3350 255 GM BTL PO ONE (14:00)
[2022-04-13] MEDS: ENOXAPARIN NA (PORCINE) 80 MG/0.8 ML DISP.SYRIN SQ SCH (17:32)
[2022-04-14] MEDS ORDERED: methylPREDNISolone NA SUCC 40 MG/1 ML VIAL IVPB SCH (06:00)
[2022-04-14] MEDS: predniSONE 10 MG TABLET (UD) PO SCH (09:27)
[2022-04-14] MEDS: amLODIPine BESYLATE 10 MG TABLET (FP) PO SCH (09:27)
[2022-04-14] MEDS: FERROUS SO4 325 MG TABLET (FP) PO SCH ×3 (09:27→17:25)
[2022-04-14] MEDS: ROSUVASTATIN CA 10 MG TABLET PO SCH (09:27)
[2022-04-14] MEDS: SODIUM BICARBONATE 650 MG TABLET PO SCH ×2 (09:27→22:32)
[2022-04-14] MEDS: ISOSORBIDE DINITRATE 5 MG TABLET PO SCH ×2 (09:27→14:03)
[2022-04-14] MEDS: CARVEDILOL 25 MG TABLET (FP) PO SCH ×2 (09:27→22:32)
[2022-04-14] MEDS: MINERAL OIL/PET HY-PHL TOPICAL OINTMENT 454 GM JAR TP SCH ×2 (09:27→22:33)
[2022-04-14] MEDS: MYCOPHENOLATE MOFETIL 500 MG TABLET PO SCH ×2 (09:27→22:33)
[2022-04-14] MEDS ORDERED: HYDROCORTISONE SOD SUCCINATE 100 MG/2 ML VIAL IVPUSH ONE (10:00)
[2022-04-14] MEDS ORDERED: MINERAL OIL ENEMA 133 ML ENEMA RC ONE (10:00)
[2022-04-14] MEDS ORDERED: MIDAZOLAM HCL 2 MG/2 ML SINGLE DOSE VIAL ONE ×2 (10:59→11:03)
[2022-04-14] MEDS ORDERED: FENTANYL CITRATE/PF 50 MCG/ML VIAL ONE (10:59)
[2022-04-14] MEDS ORDERED: KETAMINE HCL 500 MG/10 ML VIAL ONE (10:59)
[2022-04-14] MEDS: FUROSEMIDE 40 MG TABLET (FP) PO SCH (17:25)
[2022-04-14] MEDS ORDERED: WARFARIN NA 5 MG TABLET PO ONE (20:40)
[2022-04-14] MEDS: ACETAMINOPHEN 325 MG TABLET (FP) PO PRN (23:49)
[2022-04-15 10:08] LABS: HEMATOCRIT 20.5 % (32.4-45.2); MCH 27.2 pg (25.7-33.7); MCHC 32.1 g/dl (32.0-36.0); MEAN CELL VOLUME 84.8 fl (80-96); MEAN PLT VOLUME 9.5 fl (7.5-11.1); PLATELET COUNT 107 10^3/uL (134-434); RBC 2.41 M/mm3 (3.60-5.2); RDW 14.6 % (11.6-15.6); WHITE BLOOD COUNT 5.7 K/mm3 (4.0-10.0)
[2022-04-15 10:10] LABS: INR 2.87 (0.83-1.09); PROTHROMBIN TIME (PATIENT) 33.4 SEC (9.7-13.0)
[2022-04-15] MEDS: predniSONE 10 MG TABLET (UD) PO SCH (10:14)
[2022-04-15] MEDS: FUROSEMIDE 40 MG TABLET (FP) PO SCH (10:14)
[2022-04-15] MEDS: ISOSORBIDE DINITRATE 5 MG TABLET PO SCH ×2 (10:14→14:27)
[2022-04-15] MEDS: FAMOTIDINE 10 MG TABLET PO SCH (10:14)
[2022-04-15] MEDS: FERROUS SO4 325 MG TABLET (FP) PO SCH ×3 (10:14→18:00)
[2022-04-15] MEDS: MYCOPHENOLATE MOFETIL 500 MG TABLET PO SCH ×2 (10:14→21:40)
[2022-04-15] MEDS: ROSUVASTATIN CA 10 MG TABLET PO SCH (10:14)
[2022-04-15] MEDS: CARVEDILOL 25 MG TABLET (FP) PO SCH ×2 (10:14→21:40)
[2022-04-15] MEDS: SODIUM BICARBONATE 650 MG TABLET PO SCH ×2 (10:14→21:40)
[2022-04-15] MEDS: MINERAL OIL/PET HY-PHL TOPICAL OINTMENT 454 GM JAR TP SCH ×2 (10:15→21:40)
[2022-04-15] MEDS: amLODIPine BESYLATE 10 MG TABLET (FP) PO SCH (10:15)
[2022-04-15 10:20] LABS: HEMOGLOBIN 6.6 GM/dL (10.7-15.3)
[2022-04-15 10:25] LABS: CHLORIDE 110 mmol/L (98-107); SODIUM 145 mmol/L (136-145)
[2022-04-15 10:30] LABS: ALBUMIN 2.6 g/dl (3.4-5.0); CALCIUM 7.9 mg/dL (8.5-10.1)
[2022-04-15 10:32] LABS: ANION GAP 10 MMOL/L (8-16); CO2 25 mmol/L (21-32); GLUCOSE,RANDOM 107 mg/dL (74-106)
[2022-04-15 10:34] LABS: CREATININE 3.7 mg/dL (0.55-1.3); SGOT/AST 7 U/L (15-37); SGPT/ALT 10 U/L (13-61)
[2022-04-15 10:36] LABS: ALK PHOS 27 U/L (45-117); BILIRUBIN,TOTAL 0.4 mg/dL (0.2-1); TOT PROT 4.4 g/dl (6.4-8.2)
[2022-04-15 10:39] LABS: BLOOD UREA NITROGEN 116.6 mg/dL (7-18)
[2022-04-15] MEDS ORDERED: WARFARIN NA 5 MG TABLET PO SCH (18:00)
[2022-04-15] MEDS: ACETAMINOPHEN 325 MG TABLET (FP) PO PRN (21:55)
[2022-04-16 01:33] LABS: BASO % 0.1 % (0-2.0); HEMATOCRIT 25.5 % (32.4-45.2); HEMOGLOBIN 8.2 GM/dL (10.7-15.3); LYMPH % 3.1 % (8-40); MCH 27.6 pg (25.7-33.7); MCHC 32.2 g/dl (32.0-36.0); MEAN CELL VOLUME 85.5 fl (80-96); MEAN PLT VOLUME 9.8 fl (7.5-11.1); MONO % 8.7 % (3.8-10.2); NEUT % 88.1 % (42.8-82.8); PLATELET COUNT 102 10^3/uL (134-434); RBC 2.99 M/mm3 (3.60-5.2); RDW 14.6 % (11.6-15.6); WHITE BLOOD COUNT 6.4 K/mm3 (4.0-10.0)
[2022-04-16 09:22] LABS: BASO % 0.1 % (0-2.0); EOS % 0.1 % (0-4.5); HEMATOCRIT 24.7 % (32.4-45.2); HEMOGLOBIN 8.2 GM/dL (10.7-15.3); LYMPH % 4.5 % (8-40); MCH 28.3 pg (25.7-33.7); MCHC 33.4 g/dl (32.0-36.0); MEAN CELL VOLUME 84.8 fl (80-96); MEAN PLT VOLUME 10.4 fl (7.5-11.1); MONO % 9.5 % (3.8-10.2); NEUT % 85.8 % (42.8-82.8); PLATELET COUNT 102 10^3/uL (134-434); RBC 2.91 M/mm3 (3.60-5.2); RDW 14.6 % (11.6-15.6); WHITE BLOOD COUNT 8.7 K/mm3 (4.0-10.0)
[2022-04-16 09:27] LABS: INR 3.41 (0.83-1.09); PROTHROMBIN TIME (PATIENT) 39.7 SEC (9.7-13.0)
[2022-04-16] MEDS: FOLIC ACID 1 MG TABLET (FP) PO SCH (09:39)
[2022-04-16] MEDS: predniSONE 10 MG TABLET (UD) PO SCH (09:39)
[2022-04-16] MEDS: ROSUVASTATIN CA 10 MG TABLET PO SCH (09:39)
[2022-04-16] MEDS: FUROSEMIDE 40 MG TABLET (FP) PO SCH (09:39)
[2022-04-16] MEDS: MYCOPHENOLATE MOFETIL 500 MG TABLET PO SCH ×2 (09:39→23:14)
[2022-04-16] MEDS: CARVEDILOL 25 MG TABLET (FP) PO SCH ×2 (09:39→23:14)
[2022-04-16] MEDS: amLODIPine BESYLATE 10 MG TABLET (FP) PO SCH (09:39)
[2022-04-16] MEDS: PANTOPRAZOLE SODIUM 40 MG VIAL IVPUSH SCH (09:39)
[2022-04-16] MEDS: ASCORBIC ACID 500 MG TABLET (FP) PO SCH (09:39)
[2022-04-16] MEDS: SODIUM BICARBONATE 650 MG TABLET PO SCH ×2 (09:39→23:15)
[2022-04-16] MEDS: MINERAL OIL/PET HY-PHL TOPICAL OINTMENT 454 GM JAR TP SCH ×2 (09:40→23:15)
[2022-04-16] MEDS: ISOSORBIDE DINITRATE 5 MG TABLET PO SCH ×2 (09:40→14:45)
[2022-04-16 09:41] LABS: CHLORIDE 107 mmol/L (98-107); SODIUM 143 mmol/L (136-145)
[2022-04-16] MEDS: FERROUS SO4 325 MG TABLET (FP) PO SCH (09:41)
[2022-04-16 09:52] LABS: CALCIUM 7.9 mg/dL (8.5-10.1); GLUCOSE,RANDOM 91 mg/dL (74-106)
[2022-04-16 09:53] LABS: ALBUMIN 2.8 g/dl (3.4-5.0); ANION GAP 11 MMOL/L (8-16); CO2 25 mmol/L (21-32)
[2022-04-16 09:55] LABS: CREATININE 3.7 mg/dL (0.55-1.3); SGOT/AST 10 U/L (15-37)
[2022-04-16 09:56] LABS: BILIRUBIN,TOTAL 0.5 mg/dL (0.2-1)
[2022-04-16 09:57] LABS: TOT PROT 4.7 g/dl (6.4-8.2)
[2022-04-16 09:58] LABS: ALK PHOS 30 U/L (45-117)
[2022-04-16 10:00] LABS: SGPT/ALT 11 U/L (13-61)
[2022-04-16 10:24] LABS: BLOOD UREA NITROGEN 114.5 mg/dL (7-18)
[2022-04-16] MEDS ORDERED: WARFARIN NA 2 MG TABLET PO ONE (18:00)
[2022-04-16] MEDS ORDERED: WARFARIN NA 5 MG TABLET PO SCH (18:00)
[2022-04-16] MEDS: ACETAMINOPHEN 325 MG TABLET (FP) PO PRN (23:31)
[2022-04-17] MEDS: amLODIPine BESYLATE 10 MG TABLET (FP) PO SCH (09:15)
[2022-04-17] MEDS: predniSONE 10 MG TABLET (UD) PO SCH (09:15)
[2022-04-17] MEDS: FOLIC ACID 1 MG TABLET (FP) PO SCH (09:15)
[2022-04-17] MEDS: CARVEDILOL 25 MG TABLET (FP) PO SCH ×2 (09:15→22:01)
[2022-04-17] MEDS: MYCOPHENOLATE MOFETIL 500 MG TABLET PO SCH ×2 (09:15→22:01)
[2022-04-17] MEDS: ASCORBIC ACID 500 MG TABLET (FP) PO SCH (09:15)
[2022-04-17] MEDS: ROSUVASTATIN CA 10 MG TABLET PO SCH (09:15)
[2022-04-17] MEDS: SODIUM BICARBONATE 650 MG TABLET PO SCH ×2 (09:15→22:01)
[2022-04-17] MEDS: MINERAL OIL/PET HY-PHL TOPICAL OINTMENT 454 GM JAR TP SCH ×2 (09:15→22:01)
[2022-04-17] MEDS: ISOSORBIDE DINITRATE 5 MG TABLET PO SCH ×2 (09:15→14:07)
[2022-04-17] MEDS: FUROSEMIDE 40 MG TABLET (FP) PO SCH (09:15)
[2022-04-17] MEDS: PANTOPRAZOLE SODIUM 40 MG VIAL IVPUSH SCH (09:15)
[2022-04-17] MEDS: FAMOTIDINE 10 MG TABLET PO SCH (09:15)
[2022-04-17 10:11] LABS: INR 3.44 (0.83-1.09); PROTHROMBIN TIME (PATIENT) 40.1 SEC (9.7-13.0)
[2022-04-17 10:19] LABS: BASO % 0.2 % (0-2.0); EOS % 0.1 % (0-4.5); HEMATOCRIT 21.5 % (32.4-45.2); HEMOGLOBIN 7.1 GM/dL (10.7-15.3); LYMPH % 6.3 % (8-40); MCHC 33.2 g/dl (32.0-36.0); MEAN CELL VOLUME 84.3 fl (80-96); MEAN PLT VOLUME 10.4 fl (7.5-11.1); MONO % 10.1 % (3.8-10.2); NEUT % 83.3 % (42.8-82.8); PLATELET COUNT 74 10^3/uL (134-434); RBC 2.55 M/mm3 (3.60-5.2); RDW 14.5 % (11.6-15.6); WHITE BLOOD COUNT 5.6 K/mm3 (4.0-10.0)
[2022-04-17 10:33] LABS: CHLORIDE 110 mmol/L (98-107); SODIUM 146 mmol/L (136-145)
[2022-04-17 10:39] LABS: ALBUMIN 2.5 g/dl (3.4-5.0); ANION GAP 13 MMOL/L (8-16); CALCIUM 7.9 mg/dL (8.5-10.1); CO2 23 mmol/L (21-32)
[2022-04-17 10:40] LABS: GLUCOSE,RANDOM 85 mg/dL (74-106)
[2022-04-17 10:42] LABS: CREATININE 3.6 mg/dL (0.55-1.3); SGOT/AST 10 U/L (15-37); SGPT/ALT 10 U/L (13-61)
[2022-04-17 10:43] LABS: TOT PROT 4.3 g/dl (6.4-8.2)
[2022-04-17 10:44] LABS: ALK PHOS 26 U/L (45-117); BILIRUBIN,TOTAL 0.5 mg/dL (0.2-1); BLOOD UREA NITROGEN 116.2 mg/dL (7-18)
[2022-04-17] MEDS ORDERED: POTASSIUM CHLORIDE TABS 20 MEQ TABLET.ER (FP) PO ONE (13:00)
[2022-04-18] MEDS: ACETAMINOPHEN 325 MG TABLET (FP) PO PRN (04:55)
[2022-04-18] MEDS: predniSONE 10 MG TABLET (UD) PO SCH (09:26)
[2022-04-18] MEDS: FOLIC ACID 1 MG TABLET (FP) PO SCH (09:26)
[2022-04-18] MEDS: ROSUVASTATIN CA 10 MG TABLET PO SCH (09:26)
[2022-04-18] MEDS: FUROSEMIDE 40 MG TABLET (FP) PO SCH (09:26)
[2022-04-18] MEDS: SODIUM BICARBONATE 650 MG TABLET PO SCH (09:26)
[2022-04-18] MEDS: amLODIPine BESYLATE 10 MG TABLET (FP) PO SCH (09:26)
[2022-04-18] MEDS: CARVEDILOL 25 MG TABLET (FP) PO SCH (09:26)
[2022-04-18] MEDS: ASCORBIC ACID 500 MG TABLET (FP) PO SCH (09:26)
[2022-04-18] MEDS: MYCOPHENOLATE MOFETIL 500 MG TABLET PO SCH ×2 (09:27→23:45)
[2022-04-18] MEDS: ISOSORBIDE DINITRATE 5 MG TABLET PO SCH ×2 (09:27→12:49)
[2022-04-18] MEDS: MINERAL OIL/PET HY-PHL TOPICAL OINTMENT 454 GM JAR TP SCH ×2 (09:34→23:46)
[2022-04-18] MEDS: PANTOPRAZOLE SODIUM 40 MG VIAL IVPUSH SCH (10:05)
[2022-04-18 11:10] LABS: BASO % 0.2 % (0-2.0); EOS % 0.3 % (0-4.5); HEMATOCRIT 21.6 % (32.4-45.2); HEMOGLOBIN 7.1 GM/dL (10.7-15.3); LYMPH % 5.5 % (8-40); MCH 27.9 pg (25.7-33.7); MCHC 32.9 g/dl (32.0-36.0); MEAN CELL VOLUME 84.8 fl (80-96); MEAN PLT VOLUME 9.9 fl (7.5-11.1); MONO % 8.7 % (3.8-10.2); NEUT % 85.3 % (42.8-82.8); PLATELET COUNT 69 10^3/uL (134-434); RBC 2.55 M/mm3 (3.60-5.2); RDW 14.6 % (11.6-15.6); WHITE BLOOD COUNT 6.8 K/mm3 (4.0-10.0)
[2022-04-18 11:33] LABS: CHLORIDE 109 mmol/L (98-107); SODIUM 144 mmol/L (136-145)
[2022-04-18 11:37] LABS: CALCIUM 7.6 mg/dL (8.5-10.1)
[2022-04-18 11:38] LABS: ALBUMIN 2.5 g/dl (3.4-5.0); ANION GAP 13 MMOL/L (8-16); CO2 22 mmol/L (21-32); GLUCOSE,RANDOM 94 mg/dL (74-106)
[2022-04-18 11:41] LABS: CREATININE 3.6 mg/dL (0.55-1.3); SGOT/AST 9 U/L (15-37); SGPT/ALT 9 U/L (13-61)
[2022-04-18 11:42] LABS: TOT PROT 4.3 g/dl (6.4-8.2)
[2022-04-18 11:43] LABS: BILIRUBIN,TOTAL 0.4 mg/dL (0.2-1)
[2022-04-18 11:44] LABS: ALK PHOS 25 U/L (45-117)
[2022-04-18 11:46] LABS: BLOOD UREA NITROGEN 111.1 mg/dL (7-18)
[2022-04-18] MEDS ORDERED: EPOETIN ALFA-EPBX 20,000 UNIT/ML VIAL SQ ONE (14:32)
[2022-04-18] MEDS ORDERED: AMPICILLIN NA/SULBACTAM NA 3 GM in SODIUM CHLORIDE 100 ML IVPB SCH (18:50)
[2022-04-18] MEDS ORDERED: PIPERACILLIN/TAZOB 2.25 GM 2.25 GM in DEXTROSE 5%-WATER - 50 ML IVPB SCH (19:00)
[2022-04-18] MEDS ORDERED: VASOPRESSIN 40 UNITS/100 ML BAG IV SCH (19:15)
[2022-04-18] MEDS: FENTANYL NS IVPB 500 MCG/100 ML BAG IVPB SCH (19:59)
[2022-04-18] MEDS: PROPOFOL 1,000,000 MCG/100 ML VIAL IVPB SCH (19:59)
[2022-04-18 20:23] LABS: ARTERIAL BLD GAS O2 SATURATION 99.8 % (95-98); ARTERIAL BLOOD GAS BASE EXCESS -5.3 mmol/L (-2-2); ARTERIAL BLOOD GAS PO2 423.4 mmHg (80-100); ARTERIAL BLOOD GAS pH 7.345 (7.350-7.450)
[2022-04-18 20:30] LABS: ALLENS TEST POSITIVE
[2022-04-18 20:31] LABS: VENT MODE A/C; VENT RATE 12
[2022-04-18 21:58] LABS: HEMATOCRIT 30.7 % (32.4-45.2); MCH 27.7 pg (25.7-33.7); MCHC 32.7 g/dl (32.0-36.0); MEAN CELL VOLUME 84.7 fl (80-96); MEAN PLT VOLUME 10.2 fl (7.5-11.1); PLATELET COUNT 105 10^3/uL (134-434); RBC 3.63 M/mm3 (3.60-5.2); RDW 14.7 % (11.6-15.6); WHITE BLOOD COUNT 9.2 K/mm3 (4.0-10.0)
[2022-04-18 22:15] LABS: CHLORIDE 107 mmol/L (98-107); SODIUM 142 mmol/L (136-145)
[2022-04-18 22:18] LABS: CALCIUM 7.7 mg/dL (8.5-10.1)
[2022-04-18 22:19] LABS: ALBUMIN 2.8 g/dl (3.4-5.0); ANION GAP 16 MMOL/L (8-16); CO2 20 mmol/L (21-32); GLUCOSE,RANDOM 205 mg/dL (74-106); MAGNESIUM 2.3 mg/dL (1.8-2.4)
[2022-04-18 22:21] LABS: BILIRUBIN,DIRECT 0.2 mg/dL (0.0-0.2)
[2022-04-18 22:22] LABS: CREATININE 3.7 mg/dL (0.55-1.3); PHOSPHOROUS 7.1 mg/dL (2.5-4.9); SGOT/AST 673 U/L (15-37)
[2022-04-18 22:30] LABS: ALK PHOS 78 U/L (45-117); BILIRUBIN,TOTAL 0.5 mg/dL (0.2-1); BLOOD UREA NITROGEN 105.1 mg/dL (7-18); SGPT/ALT 382 U/L (13-61)
[2022-04-18 22:31] LABS: LACTIC ACID 2.6 mmol/L (0.4-2.0)
[2022-04-18 22:38] LABS: CHLORIDE 106 mmol/L (98-107); SODIUM 143 mmol/L (136-145)
[2022-04-18 22:40] LABS: ANION GAP 17 MMOL/L (8-16); CALCIUM 7.7 mg/dL (8.5-10.1); CO2 19 mmol/L (21-32); GLUCOSE,RANDOM 205 mg/dL (74-106)
[2022-04-18 22:44] LABS: CREATININE 3.7 mg/dL (0.55-1.3)
[2022-04-18 23:07] LABS: BLOOD UREA NITROGEN 106.9 mg/dL (7-18)
[2022-04-18] MEDS: ARTIFICIAL TEARS (POLYVINYL ALCOHOL) OPTH DROPS OU SCH (23:10)
[2022-04-18] MEDS: PIPERACILLIN/TAZOB 2.25 GM 2.25 GM in DEXTROSE 5%-WATER - 50 ML IVPB SCH (23:44)
[2022-04-18] MEDS: CHLORHEXIDINE GLUCONATE 4% CLEANSER FOR DECOLONIZATION TP SCH (23:45)
[2022-04-18] MEDS: MUPIROCIN 2% TOPICAL OINTMENT FOR DECOLONIZATION NS SCH (23:46)
[2022-04-19] MEDS: VANCOMYCIN 250 MG/5 ML ORAL SOLUTION NGT SCH ×4 (02:11→18:39)
[2022-04-19] MEDS: PIPERACILLIN/TAZOB 2.25 GM 2.25 GM in DEXTROSE 5%-WATER - 50 ML IVPB SCH ×5 (02:12→18:40)
[2022-04-19] MEDS: LACTATED RINGERS SOLUTION 1,000 ML/1,000 ML INFUS.BAG IV SCH (04:01)
[2022-04-19 06:04] LABS: ARTERIAL BLD GAS O2 SATURATION 98.4 % (95-98); ARTERIAL BLOOD GAS BASE EXCESS -4.9 mmol/L (-2-2); ARTERIAL BLOOD GAS PO2 117.6 mmHg (80-100)
[2022-04-19 06:06] LABS: ALLENS TEST POSITIVE
[2022-04-19 06:07] LABS: VENT MODE A/C; VENT RATE 14
[2022-04-19] MEDS ORDERED: LORazepam 2 MG/ML SDV VIAL IVPUSH ONE (07:37)
[2022-04-19 07:44] LABS: CALCIUM 7.2 mg/dL (8.5-10.1); INR 3.91 (0.83-1.09); PROTHROMBIN TIME (PATIENT) 45.6 SEC (9.7-13.0)
[2022-04-19 07:45] LABS: ALBUMIN 2.4 g/dl (3.4-5.0); ANION GAP 16 MMOL/L (8-16); CO2 20 mmol/L (21-32); GLUCOSE,RANDOM 183 mg/dL (74-106); HEMATOCRIT 31.7 % (32.4-45.2); HEMOGLOBIN 10.9 GM/dL (10.7-15.3); MCH 28.6 pg (25.7-33.7); MCHC 34.3 g/dl (32.0-36.0); MEAN CELL VOLUME 83.5 fl (80-96); MEAN PLT VOLUME 10.5 fl (7.5-11.1); PLATELET COUNT 67 10^3/uL (134-434); RBC 3.79 M/mm3 (3.60-5.2); RDW 14.5 % (11.6-15.6); WHITE BLOOD COUNT 8.9 K/mm3 (4.0-10.0)
[2022-04-19 07:47] LABS: SGPT/ALT 271 U/L (13-61)
[2022-04-19 07:48] LABS: CREATININE 4.1 mg/dL (0.55-1.3); SGOT/AST 406 U/L (15-37)
[2022-04-19 07:49] LABS: TOT PROT 4.3 g/dl (6.4-8.2)
[2022-04-19 07:50] LABS: BILIRUBIN,TOTAL 0.7 mg/dL (0.2-1)
[2022-04-19 07:51] LABS: ALK PHOS 61 U/L (45-117)
[2022-04-19 07:53] LABS: BLOOD UREA NITROGEN 111.2 mg/dL (7-18)
[2022-04-19 08:45] LABS: ANISOCYTOSIS 2+; MACROCYTOSIS 0; PLATELET ESTIMATE DECREASED
[2022-04-19] MEDS: MINERAL OIL/PET HY-PHL TOPICAL OINTMENT 454 GM JAR TP SCH ×2 (12:07→22:00)
[2022-04-19] MEDS: MUPIROCIN 2% TOPICAL OINTMENT FOR DECOLONIZATION NS SCH ×2 (12:07→22:00)
[2022-04-19] MEDS: ARTIFICIAL TEARS (POLYVINYL ALCOHOL) OPTH DROPS OU SCH ×4 (12:07→22:00)
[2022-04-19] MEDS: FAMOTIDINE 10 MG TABLET PO SCH (12:09)
[2022-04-19] MEDS ORDERED: ACETAMINOPHEN 650 MG/20.3 ML ORAL SOLUTION (CUPS) GT PRN (12:09)
[2022-04-19] MEDS: ASCORBIC ACID 500 MG TABLET (FP) PO SCH (12:10)
[2022-04-19] MEDS: predniSONE 10 MG TABLET (UD) PO SCH (12:10)
[2022-04-19] MEDS: FOLIC ACID 1 MG TABLET (FP) PO SCH (12:10)
[2022-04-19] MEDS: ROSUVASTATIN CA 10 MG TABLET PO SCH (12:10)
[2022-04-19] MEDS ORDERED: PIPERACILLIN/TAZOBACTAM 2.25 GM VIAL IVPB ONE (12:12)
[2022-04-19] MEDS: ASCORBIC ACID 500 MG/5 ML UNIT DOSE CUP GT SCH (12:34)
[2022-04-19] MEDS: PANTOPRAZOLE SODIUM 40 MG VIAL IVPUSH SCH (12:34)
[2022-04-19] MEDS: FOLIC ACID 1 MG TABLET (FP) GT SCH (12:34)
[2022-04-19] MEDS: predniSONE 10 MG TABLET (UD) GT SCH (12:34)
[2022-04-19] MEDS: MYCOPHENOLATE MOFETIL 500 MG TABLET PO SCH (13:01)
[2022-04-19 16:23] LABS: CHLORIDE 108 mmol/L (98-107); SODIUM 145 mmol/L (136-145)
[2022-04-19] MEDS: NYSTATIN POWDER 100,000 UNITS/GM - 15 GM TOPICAL POWDER TP SCH (18:39)
[2022-04-19] MEDS: CHLORHEXIDINE GLUCONATE 4% CLEANSER FOR DECOLONIZATION TP SCH (22:00)
[2022-04-19] MEDS ORDERED: MYCOPHENOLATE MOFETIL 200 MG/ML SUSPENSION PO SCH (22:00)
[2022-04-19] MEDS ORDERED: ROSUVASTATIN CA 10 MG TABLET NGT SCH (22:00)
[2022-04-19 23:06] LABS: VITAMIN E (B-GAMMA) 0.4 mg/L (0.7-4.9)
[2022-04-19] MEDS: PROPOFOL 1,000,000 MCG/100 ML VIAL IVPB SCH (23:21)
[2022-04-19] MEDS: MYCOPHENOLATE MOFETIL 200 MG/ML SUSPENSION NGT SCH (23:59)
[2022-04-20] MEDS: VANCOMYCIN 250 MG/5 ML ORAL SOLUTION NGT SCH ×4 (00:07→18:01)
[2022-04-20] MEDS: LACTATED RINGERS SOLUTION 1,000 ML/1,000 ML INFUS.BAG IV SCH (01:17)
[2022-04-20] MEDS: PIPERACILLIN/TAZOB 2.25 GM 2.25 GM in DEXTROSE 5%-WATER - 50 ML IVPB SCH ×3 (03:37→18:01)
[2022-04-20] MEDS: FENTANYL NS IVPB 500 MCG/100 ML BAG IVPB SCH (05:11)
[2022-04-20 08:23] LABS: CHLORIDE 108 mmol/L (98-107); SODIUM 143 mmol/L (136-145)
[2022-04-20 08:24] LABS: HEMATOCRIT 30.6 % (32.4-45.2); HEMOGLOBIN 10.3 GM/dL (10.7-15.3); MCH 27.7 pg (25.7-33.7); MCHC 33.6 g/dl (32.0-36.0); MEAN CELL VOLUME 82.5 fl (80-96); MEAN PLT VOLUME 10.8 fl (7.5-11.1); PLATELET COUNT 51 10^3/uL (134-434); RBC 3.71 M/mm3 (3.60-5.2); RDW 14.9 % (11.6-15.6); WHITE BLOOD COUNT 7.2 K/mm3 (4.0-10.0)
[2022-04-20 08:29] LABS: PROTHROMBIN TIME (PATIENT) 74.8 SEC (9.7-13.0)
[2022-04-20 08:32] LABS: ACTIVATED PTT 43.5 SECONDS (25.2-36.5)
[2022-04-20 08:33] LABS: ALBUMIN 2.4 g/dl (3.4-5.0); ANION GAP 15 MMOL/L (8-16); CALCIUM 7.6 mg/dL (8.5-10.1); CO2 19 mmol/L (21-32); GLUCOSE,RANDOM 108 mg/dL (74-106)
[2022-04-20 08:34] LABS: MAGNESIUM 2.3 mg/dL (1.8-2.4)
[2022-04-20 08:36] LABS: PHOSPHOROUS 6.6 mg/dL (2.5-4.9); SGOT/AST 96 U/L (15-37); SGPT/ALT 200 U/L (13-61)
[2022-04-20 08:38] LABS: BILIRUBIN,TOTAL 0.4 mg/dL (0.2-1); TOT PROT 4.6 g/dl (6.4-8.2)
[2022-04-20 08:39] LABS: ALK PHOS 54 U/L (45-117)
[2022-04-20 08:42] LABS: BLOOD UREA NITROGEN 111.1 mg/dL (7-18)
[2022-04-20] MEDS ORDERED: amLODIPine BESYLATE 5 MG TABLET (FP) PO ONE (09:03)
[2022-04-20 09:11] LABS: INR 6.38 (0.83-1.09)
[2022-04-20] MEDS ORDERED: amLODIPine BESYLATE 5 MG TABLET (FP) NGT ONE (09:51)
[2022-04-20] MEDS: NYSTATIN POWDER 100,000 UNITS/GM - 15 GM TOPICAL POWDER TP SCH (10:02)
[2022-04-20] MEDS: ASCORBIC ACID 500 MG/5 ML UNIT DOSE CUP GT SCH (10:02)
[2022-04-20] MEDS: FOLIC ACID 1 MG TABLET (FP) GT SCH (10:02)
[2022-04-20] MEDS: PANTOPRAZOLE SODIUM 40 MG VIAL IVPUSH SCH (10:02)
[2022-04-20] MEDS: MUPIROCIN 2% TOPICAL OINTMENT FOR DECOLONIZATION NS SCH ×2 (10:03→21:30)
[2022-04-20] MEDS: MYCOPHENOLATE MOFETIL 200 MG/ML SUSPENSION NGT SCH ×2 (10:03→21:35)
[2022-04-20] MEDS: predniSONE 10 MG TABLET (UD) GT SCH (10:03)
[2022-04-20] MEDS: MINERAL OIL/PET HY-PHL TOPICAL OINTMENT 454 GM JAR TP SCH (10:07)
[2022-04-20] MEDS: ARTIFICIAL TEARS (POLYVINYL ALCOHOL) OPTH DROPS OU SCH ×4 (10:07→21:30)
[2022-04-20] MEDS ORDERED: METOPROLOL TARTRATE 5 MG/5 ML VIAL IVPUSH ONE (14:39)
[2022-04-20] MEDS ORDERED: ACETAMINOPHEN 1000 MG/100 ML BAG IVPB ONE (17:39)
[2022-04-20] MEDS ORDERED: LACTATED RINGERS SOLUTION 1,000 ML/1,000 ML INFUS.BAG IV SCH (19:41)
[2022-04-20] MEDS ORDERED: ACETAMINOPHEN 650 MG/20.3 ML ORAL SOLUTION (CUPS) GT PRN (19:41)
[2022-04-20] MEDS ORDERED: clonazePAM 0.5 MG TABLET NGT ONE (20:30)
[2022-04-20] MEDS: ROSUVASTATIN CA 10 MG TABLET NGT SCH (21:29)
[2022-04-20] MEDS: CHLORHEXIDINE GLUCONATE 4% CLEANSER FOR DECOLONIZATION TP SCH (21:30)
[2022-04-21] MEDS: VANCOMYCIN 250 MG/5 ML ORAL SOLUTION NGT SCH ×4 (02:44→17:10)
[2022-04-21] MEDS: PIPERACILLIN/TAZOB 2.25 GM 2.25 GM in DEXTROSE 5%-WATER - 50 ML IVPB SCH ×3 (02:50→17:10)
[2022-04-21] MEDS: FENTANYL NS IVPB 500 MCG/100 ML BAG IVPB SCH ×2 (05:44→19:58)
[2022-04-21] MEDS: PROPOFOL 1,000,000 MCG/100 ML VIAL IVPB SCH ×2 (05:44→19:58)
[2022-04-21] MEDS ORDERED: LORazepam 2 MG/ML SDV VIAL IVPUSH PRN (08:15)
[2022-04-21 09:20] LABS: HEMATOCRIT 29.2 % (32.4-45.2); HEMOGLOBIN 9.9 GM/dL (10.7-15.3); MCH 28.3 pg (25.7-33.7); MCHC 33.7 g/dl (32.0-36.0); MEAN CELL VOLUME 83.9 fl (80-96); MEAN PLT VOLUME 11.1 fl (7.5-11.1); PLATELET COUNT 80 10^3/uL (134-434); RBC 3.48 M/mm3 (3.60-5.2); RDW 15.4 % (11.6-15.6); WHITE BLOOD COUNT 12.3 K/mm3 (4.0-10.0)
[2022-04-21 09:35] LABS: CHLORIDE 107 mmol/L (98-107); SODIUM 142 mmol/L (136-145)
[2022-04-21 09:40] LABS: ALBUMIN 2.3 g/dl (3.4-5.0); ANION GAP 16 MMOL/L (8-16); CALCIUM 7.6 mg/dL (8.5-10.1); CO2 19 mmol/L (21-32); GLUCOSE,RANDOM 117 mg/dL (74-106); MAGNESIUM 2.1 mg/dL (1.8-2.4)
[2022-04-21] MEDS: MINERAL OIL/PET HY-PHL TOPICAL OINTMENT 454 GM JAR TP SCH ×3 (09:41→22:19)
[2022-04-21 09:42] LABS: CREATININE 4.4 mg/dL (0.55-1.3); PHOSPHOROUS 6.4 mg/dL (2.5-4.9)
[2022-04-21] MEDS: ARTIFICIAL TEARS (POLYVINYL ALCOHOL) OPTH DROPS OU SCH ×4 (09:42→22:20)
[2022-04-21] MEDS: MUPIROCIN 2% TOPICAL OINTMENT FOR DECOLONIZATION NS SCH ×2 (09:42→22:20)
[2022-04-21] MEDS: MYCOPHENOLATE MOFETIL 200 MG/ML SUSPENSION NGT SCH ×2 (09:42→22:18)
[2022-04-21 09:43] LABS: BILIRUBIN,TOTAL 0.4 mg/dL (0.2-1); SGOT/AST 52 U/L (15-37); TOT PROT 4.5 g/dl (6.4-8.2)
[2022-04-21] MEDS: predniSONE 10 MG TABLET (UD) GT SCH (09:43)
[2022-04-21] MEDS: FOLIC ACID 1 MG TABLET (FP) GT SCH (09:43)
[2022-04-21 09:44] LABS: ALK PHOS 59 U/L (45-117); SGPT/ALT 103 U/L (13-61)
[2022-04-21] MEDS: PANTOPRAZOLE SODIUM 40 MG VIAL IVPUSH SCH (09:44)
[2022-04-21] MEDS: NYSTATIN POWDER 100,000 UNITS/GM - 15 GM TOPICAL POWDER TP SCH (09:44)
[2022-04-21] MEDS: ASCORBIC ACID 500 MG/5 ML UNIT DOSE CUP GT SCH (09:45)
[2022-04-21 09:46] LABS: BLOOD UREA NITROGEN 112.7 mg/dL (7-18)
[2022-04-21 10:55] LABS: PROTHROMBIN TIME (PATIENT) 83.7 SEC (9.7-13.0)
[2022-04-21 10:58] LABS: ACTIVATED PTT 47.5 SECONDS (25.2-36.5)
[2022-04-21 11:20] LABS: INR 7.14 (0.83-1.09)
[2022-04-21] MEDS: clonazePAM 0.5 MG TABLET GT PRN (12:14)
[2022-04-21] MEDS ORDERED: PHYTONADIONE 5 MG TABLET PO ONE (13:00)
[2022-04-21] MEDS: ROSUVASTATIN CA 10 MG TABLET NGT SCH (22:18)
[2022-04-21] MEDS: CHLORHEXIDINE GLUCONATE 4% CLEANSER FOR DECOLONIZATION TP SCH (22:21)
[2022-04-22] MEDS: VANCOMYCIN 250 MG/5 ML ORAL SOLUTION NGT SCH ×5 (01:18→23:52)
[2022-04-22] MEDS: PIPERACILLIN/TAZOB 2.25 GM 2.25 GM in DEXTROSE 5%-WATER - 50 ML IVPB SCH ×3 (01:18→17:48)
[2022-04-22 07:47] LABS: HEMATOCRIT 24.5 % (32.4-45.2); HEMOGLOBIN 8.4 GM/dL (10.7-15.3); MCH 28.9 pg (25.7-33.7); MCHC 34.5 g/dl (32.0-36.0); MEAN CELL VOLUME 83.8 fl (80-96); MEAN PLT VOLUME 11.1 fl (7.5-11.1); PLATELET COUNT 65 10^3/uL (134-434); RBC 2.92 M/mm3 (3.60-5.2); RDW 14.8 % (11.6-15.6); WHITE BLOOD COUNT 10.8 K/mm3 (4.0-10.0)
[2022-04-22 07:54] LABS: INR 2.58 (0.83-1.09)
[2022-04-22 07:56] LABS: CHLORIDE 108 mmol/L (98-107); SODIUM 142 mmol/L (136-145)
[2022-04-22 08:01] LABS: CALCIUM 7.4 mg/dL (8.5-10.1)
[2022-04-22 08:02] LABS: ALBUMIN 2.1 g/dl (3.4-5.0); ANION GAP 16 MMOL/L (8-16); CO2 18 mmol/L (21-32); GLUCOSE,RANDOM 89 mg/dL (74-106)
[2022-04-22 08:03] LABS: MAGNESIUM 2.1 mg/dL (1.8-2.4)
[2022-04-22 08:05] LABS: CREATININE 4.6 mg/dL (0.55-1.3); PHOSPHOROUS 6.8 mg/dL (2.5-4.9); SGOT/AST 53 U/L (15-37); SGPT/ALT 69 U/L (13-61)
[2022-04-22 08:06] LABS: TOT PROT 4.2 g/dl (6.4-8.2)
[2022-04-22 08:07] LABS: ALK PHOS 52 U/L (45-117); BILIRUBIN,TOTAL 0.3 mg/dL (0.2-1); BLOOD UREA NITROGEN 110.5 mg/dL (7-18)
[2022-04-22 08:42] LABS: ANISOCYTOSIS 0; HELMET CELLS 0; HOWELL-JOLLY BODIES 0; MACROCYTOSIS 0; OVALOCYTE 0; ROULEAU 0; SICKELED CELLS 0; TARGET CELLS 0; TEAR DROP CELLS 0; TOXIC GRANULATION 0
[2022-04-22] MEDS: MINERAL OIL/PET HY-PHL TOPICAL OINTMENT 454 GM JAR TP SCH ×2 (09:15→22:58)
[2022-04-22] MEDS: ARTIFICIAL TEARS (POLYVINYL ALCOHOL) OPTH DROPS OU SCH ×4 (09:16→22:59)
[2022-04-22] MEDS: MYCOPHENOLATE MOFETIL 200 MG/ML SUSPENSION NGT SCH ×2 (09:16→22:58)
[2022-04-22] MEDS: predniSONE 10 MG TABLET (UD) GT SCH (09:16)
[2022-04-22] MEDS: FOLIC ACID 1 MG TABLET (FP) GT SCH (09:17)
[2022-04-22] MEDS: PANTOPRAZOLE SODIUM 40 MG VIAL IVPUSH SCH (09:17)
[2022-04-22] MEDS: ASCORBIC ACID 500 MG/5 ML UNIT DOSE CUP GT SCH (09:17)
[2022-04-22] MEDS: NYSTATIN POWDER 100,000 UNITS/GM - 15 GM TOPICAL POWDER TP SCH (09:21)
[2022-04-22] MEDS: MUPIROCIN 2% TOPICAL OINTMENT FOR DECOLONIZATION NS SCH ×2 (12:00→22:59)
[2022-04-22] MEDS: PROPOFOL 1,000,000 MCG/100 ML VIAL IVPB SCH (20:11)
[2022-04-22] MEDS: FENTANYL NS IVPB 500 MCG/100 ML BAG IVPB SCH (20:11)
[2022-04-22] MEDS: ROSUVASTATIN CA 10 MG TABLET NGT SCH (22:57)
[2022-04-22] MEDS: CHLORHEXIDINE GLUCONATE 4% CLEANSER FOR DECOLONIZATION TP SCH (23:00)
[2022-04-23] MEDS ORDERED: PIPERACILLIN/TAZOBACTAM 2.25 GM VIAL IVPB ONE (01:47)
[2022-04-23] MEDS: PIPERACILLIN/TAZOB 2.25 GM 2.25 GM in DEXTROSE 5%-WATER - 50 ML IVPB SCH ×3 (02:03→17:43)
[2022-04-23] MEDS: VANCOMYCIN 250 MG/5 ML ORAL SOLUTION NGT SCH ×3 (05:17→17:42)
[2022-04-23 08:36] LABS: INR 1.79 (0.83-1.09); PROTHROMBIN TIME (PATIENT) 20.7 SEC (9.7-13.0)
[2022-04-23 08:37] LABS: ACTIVATED PTT 32.6 SECONDS (25.2-36.5)
[2022-04-23 08:46] LABS: CHLORIDE 108 mmol/L (98-107); SODIUM 143 mmol/L (136-145)
[2022-04-23 08:52] LABS: CALCIUM 7.4 mg/dL (8.5-10.1); GLUCOSE,RANDOM 124 mg/dL (74-106)
[2022-04-23 08:53] LABS: ALBUMIN 2.2 g/dl (3.4-5.0); ANION GAP 17 MMOL/L (8-16); CO2 18 mmol/L (21-32); MAGNESIUM 2.3 mg/dL (1.8-2.4)
[2022-04-23 08:55] LABS: SGPT/ALT 53 U/L (13-61)
[2022-04-23 08:56] LABS: CREATININE 4.9 mg/dL (0.55-1.3); PHOSPHOROUS 7.2 mg/dL (2.5-4.9); SGOT/AST 45 U/L (15-37)
[2022-04-23 08:57] LABS: BILIRUBIN,TOTAL 0.3 mg/dL (0.2-1); TOT PROT 4.3 g/dl (6.4-8.2)
[2022-04-23 08:58] LABS: ALK PHOS 62 U/L (45-117)
[2022-04-23 09:04] LABS: BLOOD UREA NITROGEN 118.8 mg/dL (7-18)
[2022-04-23 09:08] LABS: HEMATOCRIT 25.6 % (32.4-45.2); HEMOGLOBIN 8.5 GM/dL (10.7-15.3); MCH 27.8 pg (25.7-33.7); MCHC 33.1 g/dl (32.0-36.0); MEAN PLT VOLUME 10.5 fl (7.5-11.1); PLATELET COUNT 62 10^3/uL (134-434); RBC 3.04 M/mm3 (3.60-5.2); RDW 14.7 % (11.6-15.6); WHITE BLOOD COUNT 8.1 K/mm3 (4.0-10.0)
[2022-04-23] MEDS: ARTIFICIAL TEARS (POLYVINYL ALCOHOL) OPTH DROPS OU SCH ×4 (09:48→22:26)
[2022-04-23] MEDS: MUPIROCIN 2% TOPICAL OINTMENT FOR DECOLONIZATION NS SCH (09:48)
[2022-04-23] MEDS: MINERAL OIL/PET HY-PHL TOPICAL OINTMENT 454 GM JAR TP SCH ×2 (09:48→22:26)
[2022-04-23] MEDS: MYCOPHENOLATE MOFETIL 200 MG/ML SUSPENSION NGT SCH ×2 (09:49→22:26)
[2022-04-23] MEDS: predniSONE 10 MG TABLET (UD) GT SCH (09:50)
[2022-04-23] MEDS: PANTOPRAZOLE SODIUM 40 MG VIAL IVPUSH SCH (09:51)
[2022-04-23] MEDS: FOLIC ACID 1 MG TABLET (FP) GT SCH (09:51)
[2022-04-23] MEDS: NYSTATIN POWDER 100,000 UNITS/GM - 15 GM TOPICAL POWDER TP SCH (09:51)
[2022-04-23] MEDS: ASCORBIC ACID 500 MG/5 ML UNIT DOSE CUP GT SCH (09:52)
[2022-04-23 10:42] LABS: ANISOCYTOSIS 0; HELMET CELLS 0; HOWELL-JOLLY BODIES 0; MACROCYTOSIS 0; OVALOCYTE 0; ROULEAU 0; SICKELED CELLS 0; TARGET CELLS 0; TEAR DROP CELLS 0; TOXIC GRANULATION 0
[2022-04-23] MEDS ORDERED: INSULIN (NOVOLOG) ASPART 100 UNITS/ML 10ML VIAL ONE (11:37)
[2022-04-23] MEDS: FUROSEMIDE 40 MG/4 ML INJECTABLE VIAL IVPUSH SCH (13:48)
[2022-04-23] MEDS: clonazePAM 0.5 MG TABLET GT PRN (20:19)
[2022-04-23] MEDS: ROSUVASTATIN CA 10 MG TABLET NGT SCH (22:28)
[2022-04-23] MEDS: CHLORHEXIDINE GLUCONATE 4% CLEANSER FOR DECOLONIZATION TP SCH (22:28)
[2022-04-24] MEDS: VANCOMYCIN 250 MG/5 ML ORAL SOLUTION NGT SCH ×5 (01:22→23:22)
[2022-04-24] MEDS: PIPERACILLIN/TAZOB 2.25 GM 2.25 GM in DEXTROSE 5%-WATER - 50 ML IVPB SCH ×3 (01:38→17:22)
[2022-04-24] MEDS: SCOPOLAMINE HYDROBROMIDE 1 PATCH PATCH.TD72 TD SCH (05:03)
[2022-04-24] MEDS: FUROSEMIDE 40 MG/4 ML INJECTABLE VIAL IVPUSH SCH ×2 (05:39→13:26)
[2022-04-24 07:32] LABS: HEMATOCRIT 23.2 % (32.4-45.2); HEMOGLOBIN 7.9 GM/dL (10.7-15.3); MCH 28.4 pg (25.7-33.7); MCHC 34.2 g/dl (32.0-36.0); MEAN CELL VOLUME 83.1 fl (80-96); MEAN PLT VOLUME 10.9 fl (7.5-11.1); PLATELET COUNT 53 10^3/uL (134-434); RDW 15.3 % (11.6-15.6); WHITE BLOOD COUNT 6.7 K/mm3 (4.0-10.0)
[2022-04-24 07:53] LABS: CHLORIDE 111 mmol/L (98-107); SODIUM 145 mmol/L (136-145)
[2022-04-24 07:56] LABS: ALBUMIN 2.1 g/dl (3.4-5.0); CO2 20 mmol/L (21-32); GLUCOSE,RANDOM 156 mg/dL (74-106); MAGNESIUM 2.1 mg/dL (1.8-2.4)
[2022-04-24 07:58] LABS: PHOSPHOROUS 6.1 mg/dL (2.5-4.9); SGPT/ALT 37 U/L (13-61)
[2022-04-24 07:59] LABS: CREATININE 4.9 mg/dL (0.55-1.3); SGOT/AST 38 U/L (15-37)
[2022-04-24 08:00] LABS: BILIRUBIN,TOTAL 0.3 mg/dL (0.2-1); TOT PROT 4.1 g/dl (6.4-8.2)
[2022-04-24 08:08] LABS: ALK PHOS 64 U/L (45-117); ANION GAP 14 MMOL/L (8-16); BLOOD UREA NITROGEN 114.7 mg/dL (7-18)
[2022-04-24 08:15] LABS: INR 2.09 (0.83-1.09); PROTHROMBIN TIME (PATIENT) 24.2 SEC (9.7-13.0)
[2022-04-24 08:18] LABS: ACTIVATED PTT 32.5 SECONDS (25.2-36.5)
[2022-04-24] MEDS ORDERED: POTASSIUM CHLORIDE 20 MEQ PREMIX IVPB 100 ML IVPB ONE (09:22)
[2022-04-24] MEDS: ARTIFICIAL TEARS (POLYVINYL ALCOHOL) OPTH DROPS OU SCH ×4 (09:39→21:24)
[2022-04-24] MEDS: MINERAL OIL/PET HY-PHL TOPICAL OINTMENT 454 GM JAR TP SCH ×2 (09:39→21:23)
[2022-04-24] MEDS: MYCOPHENOLATE MOFETIL 200 MG/ML SUSPENSION NGT SCH ×2 (09:40→21:24)
[2022-04-24] MEDS: predniSONE 10 MG TABLET (UD) GT SCH (09:40)
[2022-04-24] MEDS: NYSTATIN POWDER 100,000 UNITS/GM - 15 GM TOPICAL POWDER TP SCH (09:41)
[2022-04-24] MEDS: FOLIC ACID 1 MG TABLET (FP) GT SCH (09:41)
[2022-04-24] MEDS: PANTOPRAZOLE SODIUM 40 MG VIAL IVPUSH SCH (09:42)
[2022-04-24] MEDS: ASCORBIC ACID 500 MG/5 ML UNIT DOSE CUP GT SCH (09:43)
[2022-04-24] MEDS ORDERED: PHYTONADIONE 10 MG/1 ML AMP IVPB ONE (09:56)
[2022-04-24] MEDS ORDERED: POTASSIUM CHLORIDE ORAL LIQUID 20 MEQ/15 ML PO ONE (10:30)
[2022-04-24 10:31] LABS: ANISOCYTOSIS 0; HELMET CELLS 0; HOWELL-JOLLY BODIES 0; MACROCYTOSIS 0; OVALOCYTE 0; ROULEAU 0; SICKELED CELLS 0; TARGET CELLS 0; TEAR DROP CELLS 0; TOXIC GRANULATION 0
[2022-04-24] MEDS: KCL 10 MEQ IVPB 10 MEQ/100 ML INFUS.BAG IVPB SCH ×2 (10:31→11:59)
[2022-04-24] MEDS: CHLORHEXIDINE GLUCONATE 4% CLEANSER FOR DECOLONIZATION TP SCH (21:23)
[2022-04-24] MEDS: ROSUVASTATIN CA 10 MG TABLET NGT SCH (21:24)
[2022-04-25] MEDS: PIPERACILLIN/TAZOB 2.25 GM 2.25 GM in DEXTROSE 5%-WATER - 50 ML IVPB SCH ×3 (01:12→19:00)
[2022-04-25] MEDS: FUROSEMIDE 40 MG/4 ML INJECTABLE VIAL IVPUSH SCH ×2 (05:12→14:05)
[2022-04-25] MEDS: VANCOMYCIN 250 MG/5 ML ORAL SOLUTION NGT SCH ×4 (05:15→23:57)
[2022-04-25 07:23] LABS: HEMATOCRIT 24.4 % (32.4-45.2); HEMOGLOBIN 8.1 GM/dL (10.7-15.3); MCHC 33.2 g/dl (32.0-36.0); MEAN CELL VOLUME 84.3 fl (80-96); MEAN PLT VOLUME 10.7 fl (7.5-11.1); PLATELET COUNT 53 10^3/uL (134-434); RBC 2.89 M/mm3 (3.60-5.2); RDW 15.7 % (11.6-15.6); WHITE BLOOD COUNT 6.6 K/mm3 (4.0-10.0)
[2022-04-25 07:36] LABS: INR 1.15 (0.83-1.09); PROTHROMBIN TIME (PATIENT) 13.3 SEC (9.7-13.0)
[2022-04-25 07:39] LABS: ACTIVATED PTT 28.4 SECONDS (25.2-36.5)
[2022-04-25 07:48] LABS: CHLORIDE 112 mmol/L (98-107); SODIUM 145 mmol/L (136-145)
[2022-04-25 07:50] LABS: CALCIUM 7.1 mg/dL (8.5-10.1); GLUCOSE,RANDOM 121 mg/dL (74-106)
[2022-04-25 07:51] LABS: ALBUMIN 2.2 g/dl (3.4-5.0); ANION GAP 14 MMOL/L (8-16); CO2 20 mmol/L (21-32); MAGNESIUM 2.3 mg/dL (1.8-2.4)
[2022-04-25 07:53] LABS: SGPT/ALT 30 U/L (13-61)
[2022-04-25 07:54] LABS: CREATININE 4.9 mg/dL (0.55-1.3); PHOSPHOROUS 5.4 mg/dL (2.5-4.9); SGOT/AST 39 U/L (15-37)
[2022-04-25 07:55] LABS: BILIRUBIN,TOTAL 0.3 mg/dL (0.2-1); TOT PROT 4.3 g/dl (6.4-8.2)
[2022-04-25 07:56] LABS: ALK PHOS 60 U/L (45-117)
[2022-04-25 08:03] LABS: BLOOD UREA NITROGEN 109.1 mg/dL (7-18)
[2022-04-25 09:30] LABS: ANISOCYTOSIS 3+; MACROCYTOSIS 0; PLATELET ESTIMATE DECREASED
[2022-04-25] MEDS: predniSONE 10 MG TABLET (UD) GT SCH (10:51)
[2022-04-25] MEDS: MYCOPHENOLATE MOFETIL 200 MG/ML SUSPENSION NGT SCH ×2 (10:52→21:10)
[2022-04-25] MEDS: PANTOPRAZOLE SODIUM 40 MG VIAL IVPUSH SCH (10:52)
[2022-04-25] MEDS: ASCORBIC ACID 500 MG/5 ML UNIT DOSE CUP GT SCH (10:53)
[2022-04-25] MEDS: FOLIC ACID 1 MG TABLET (FP) GT SCH (10:53)
[2022-04-25] MEDS: KCL 10 MEQ IVPB 10 MEQ/100 ML INFUS.BAG IVPB SCH ×3 (10:56→13:00)
[2022-04-25] MEDS: MINERAL OIL/PET HY-PHL TOPICAL OINTMENT 454 GM JAR TP SCH ×2 (10:56→21:10)
[2022-04-25] MEDS: NYSTATIN POWDER 100,000 UNITS/GM - 15 GM TOPICAL POWDER TP SCH (10:57)
[2022-04-25] MEDS: ARTIFICIAL TEARS (POLYVINYL ALCOHOL) OPTH DROPS OU SCH ×4 (10:57→21:10)
[2022-04-25] MEDS: CHLORHEXIDINE GLUCONATE 4% CLEANSER FOR DECOLONIZATION TP SCH (21:10)
[2022-04-25] MEDS: ROSUVASTATIN CA 10 MG TABLET NGT SCH (21:10)
[2022-04-26] MEDS: PIPERACILLIN/TAZOB 2.25 GM 2.25 GM in DEXTROSE 5%-WATER - 50 ML IVPB SCH ×2 (01:00→10:36)
[2022-04-26] MEDS: VANCOMYCIN 250 MG/5 ML ORAL SOLUTION NGT SCH ×4 (06:13→23:37)
[2022-04-26] MEDS: FUROSEMIDE 40 MG/4 ML INJECTABLE VIAL IVPUSH SCH ×2 (06:13→14:11)
[2022-04-26 07:43] LABS: HEMATOCRIT 22.9 % (32.4-45.2); HEMOGLOBIN 7.8 GM/dL (10.7-15.3); MCH 28.8 pg (25.7-33.7); MCHC 34.2 g/dl (32.0-36.0); MEAN CELL VOLUME 84.3 fl (80-96); MEAN PLT VOLUME 11.1 fl (7.5-11.1); PLATELET COUNT 44 10^3/uL (134-434); RBC 2.71 M/mm3 (3.60-5.2); WHITE BLOOD COUNT 5.4 K/mm3 (4.0-10.0)
[2022-04-26 07:52] LABS: CHLORIDE 114 mmol/L (98-107); SODIUM 147 mmol/L (136-145)
[2022-04-26 08:02] LABS: ANION GAP 14 MMOL/L (8-16); CO2 18 mmol/L (21-32); GLUCOSE,RANDOM 133 mg/dL (74-106)
[2022-04-26 08:04] LABS: CREATININE 4.8 mg/dL (0.55-1.3); SGPT/ALT 23 U/L (13-61)
[2022-04-26 08:05] LABS: SGOT/AST 35 U/L (15-37)
[2022-04-26 08:06] LABS: BILIRUBIN,TOTAL 0.3 mg/dL (0.2-1); TOT PROT 4.1 g/dl (6.4-8.2)
[2022-04-26 08:07] LABS: ALK PHOS 58 U/L (45-117)
[2022-04-26 08:40] LABS: BLOOD UREA NITROGEN 125.8 mg/dL (7-18); CALCIUM 6.6 mg/dL (8.5-10.1)
[2022-04-26 08:55] LABS: ANISOCYTOSIS 2+; MACROCYTOSIS 0
[2022-04-26] MEDS: KCL 10 MEQ IVPB 10 MEQ/100 ML INFUS.BAG IVPB SCH ×2 (09:30→12:09)
[2022-04-26] MEDS: ASCORBIC ACID 500 MG/5 ML UNIT DOSE CUP GT SCH (10:38)
[2022-04-26] MEDS: MYCOPHENOLATE MOFETIL 200 MG/ML SUSPENSION NGT SCH ×2 (10:38→22:05)
[2022-04-26] MEDS: PANTOPRAZOLE SODIUM 40 MG VIAL IVPUSH SCH (10:38)
[2022-04-26] MEDS: FOLIC ACID 1 MG TABLET (FP) GT SCH (10:39)
[2022-04-26] MEDS: predniSONE 10 MG TABLET (UD) GT SCH (10:39)
[2022-04-26] MEDS: MINERAL OIL/PET HY-PHL TOPICAL OINTMENT 454 GM JAR TP SCH ×2 (10:40→22:05)
[2022-04-26] MEDS: ARTIFICIAL TEARS (POLYVINYL ALCOHOL) OPTH DROPS OU SCH ×4 (10:40→22:05)
[2022-04-26] MEDS: NYSTATIN POWDER 100,000 UNITS/GM - 15 GM TOPICAL POWDER TP SCH (10:40)
[2022-04-26] MEDS ORDERED: CALCIUM GLUCONATE 10% - 1,000 MG/10 ML VIAL IVPB ONE (15:25)
[2022-04-26] MEDS: ROSUVASTATIN CA 10 MG TABLET NGT SCH (22:05)
[2022-04-26] MEDS: CHLORHEXIDINE GLUCONATE 4% CLEANSER FOR DECOLONIZATION TP SCH (22:06)
[2022-04-27] MEDS: VANCOMYCIN 250 MG/5 ML ORAL SOLUTION NGT SCH ×4 (05:53→23:19)
[2022-04-27] MEDS: SCOPOLAMINE HYDROBROMIDE 1 PATCH PATCH.TD72 TD SCH (05:53)
[2022-04-27] MEDS: FUROSEMIDE 40 MG/4 ML INJECTABLE VIAL IVPUSH SCH ×2 (06:27→13:07)
[2022-04-27] MEDS: AMINO ACIDS/PROTEIN HYDROLYS 30 ML LIQUID.PKT GT SCH (09:13)
[2022-04-27] MEDS: FOLIC ACID 1 MG TABLET (FP) GT SCH (09:13)
[2022-04-27] MEDS: predniSONE 10 MG TABLET (UD) GT SCH (09:13)
[2022-04-27] MEDS: PANTOPRAZOLE SODIUM 40 MG VIAL IVPUSH SCH (09:13)
[2022-04-27] MEDS: MYCOPHENOLATE MOFETIL 200 MG/ML SUSPENSION NGT SCH ×2 (09:14→21:32)
[2022-04-27] MEDS: ASCORBIC ACID 500 MG/5 ML UNIT DOSE CUP GT SCH (09:14)
[2022-04-27] MEDS: ARTIFICIAL TEARS (POLYVINYL ALCOHOL) OPTH DROPS OU SCH ×4 (09:15→21:31)
[2022-04-27] MEDS: MINERAL OIL/PET HY-PHL TOPICAL OINTMENT 454 GM JAR TP SCH ×2 (09:15→21:31)
[2022-04-27] MEDS: NYSTATIN POWDER 100,000 UNITS/GM - 15 GM TOPICAL POWDER TP SCH (09:18)
[2022-04-27 09:24] LABS: HEMATOCRIT 22.3 % (32.4-45.2); HEMOGLOBIN 7.5 GM/dL (10.7-15.3); MCH 28.4 pg (25.7-33.7); MCHC 33.4 g/dl (32.0-36.0); MEAN CELL VOLUME 85.1 fl (80-96); MEAN PLT VOLUME 11.3 fl (7.5-11.1); RBC 2.63 M/mm3 (3.60-5.2); RDW 15.8 % (11.6-15.6); WHITE BLOOD COUNT 4.8 K/mm3 (4.0-10.0)
[2022-04-27 09:32] LABS: PLATELET COUNT 36 10^3/uL (134-434)
[2022-04-27 09:49] LABS: CHLORIDE 114 mmol/L (98-107); SODIUM 147 mmol/L (136-145)
[2022-04-27 09:52] LABS: ALBUMIN 1.9 g/dl (3.4-5.0); ANION GAP 14 MMOL/L (8-16); CO2 19 mmol/L (21-32); GLUCOSE,RANDOM 162 mg/dL (74-106); MAGNESIUM 2.3 mg/dL (1.8-2.4)
[2022-04-27 09:55] LABS: CREATININE 4.6 mg/dL (0.55-1.3); PHOSPHOROUS 5.9 mg/dL (2.5-4.9); SGOT/AST 30 U/L (15-37)
[2022-04-27 09:57] LABS: BILIRUBIN,TOTAL 0.2 mg/dL (0.2-1); SGPT/ALT 20 U/L (13-61)
[2022-04-27 09:58] LABS: ALK PHOS 54 U/L (45-117)
[2022-04-27 10:01] LABS: BLOOD UREA NITROGEN 128.2 mg/dL (7-18)
[2022-04-27] MEDS ORDERED: KCL 10 MEQ IVPB 10 MEQ/100 ML INFUS.BAG IVPB SCH (10:45)
[2022-04-27] MEDS: BANATROL PLUS POWDER PACKET PO SCH ×2 (13:06→21:32)
[2022-04-27] MEDS: CHLORHEXIDINE GLUCONATE 4% CLEANSER FOR DECOLONIZATION TP SCH (21:32)
[2022-04-27] MEDS: ROSUVASTATIN CA 10 MG TABLET NGT SCH (21:32)
[2022-04-28] MEDS: FUROSEMIDE 40 MG/4 ML INJECTABLE VIAL IVPUSH SCH (06:21)
[2022-04-28] MEDS: BANATROL PLUS POWDER PACKET PO SCH ×3 (06:21→21:53)
[2022-04-28] MEDS: VANCOMYCIN 250 MG/5 ML ORAL SOLUTION NGT SCH ×3 (06:34→19:02)
[2022-04-28 07:37] LABS: HEMATOCRIT 23.4 % (32.4-45.2); HEMOGLOBIN 7.7 GM/dL (10.7-15.3); MCH 27.9 pg (25.7-33.7); MCHC 32.9 g/dl (32.0-36.0); MEAN CELL VOLUME 84.8 fl (80-96); MEAN PLT VOLUME 11.3 fl (7.5-11.1); PLATELET COUNT 49 10^3/uL (134-434); RBC 2.76 M/mm3 (3.60-5.2); RDW 16.2 % (11.6-15.6)
[2022-04-28 07:50] LABS: CHLORIDE 113 mmol/L (98-107); SODIUM 145 mmol/L (136-145)
[2022-04-28 07:54] LABS: ALBUMIN 1.9 g/dl (3.4-5.0); ANION GAP 11 MMOL/L (8-16); CO2 21 mmol/L (21-32); GLUCOSE,RANDOM 121 mg/dL (74-106); MAGNESIUM 2.2 mg/dL (1.8-2.4)
[2022-04-28 07:57] LABS: CREATININE 4.5 mg/dL (0.55-1.3); PHOSPHOROUS 6.2 mg/dL (2.5-4.9); SGPT/ALT 18 U/L (13-61)
[2022-04-28 07:58] LABS: SGOT/AST 35 U/L (15-37)
[2022-04-28 07:59] LABS: TOT PROT 4.1 g/dl (6.4-8.2)
[2022-04-28 08:00] LABS: ALK PHOS 62 U/L (45-117)
[2022-04-28 08:32] LABS: BILIRUBIN,TOTAL 0.3 mg/dL (0.2-1); BLOOD UREA NITROGEN 127.8 mg/dL (7-18)
[2022-04-28] MEDS: FOLIC ACID 1 MG TABLET (FP) GT SCH (09:09)
[2022-04-28] MEDS: ASCORBIC ACID 500 MG/5 ML UNIT DOSE CUP GT SCH (09:09)
[2022-04-28] MEDS: ARTIFICIAL TEARS (POLYVINYL ALCOHOL) OPTH DROPS OU SCH ×7 (09:09→23:05)
[2022-04-28] MEDS: predniSONE 10 MG TABLET (UD) GT SCH (09:09)
[2022-04-28] MEDS: PANTOPRAZOLE SODIUM 40 MG VIAL IVPUSH SCH (09:10)
[2022-04-28] MEDS: MYCOPHENOLATE MOFETIL 200 MG/ML SUSPENSION NGT SCH (09:10)
[2022-04-28] MEDS: AMINO ACIDS/PROTEIN HYDROLYS 30 ML LIQUID.PKT GT SCH (09:10)
[2022-04-28] MEDS: NYSTATIN POWDER 100,000 UNITS/GM - 15 GM TOPICAL POWDER TP SCH (09:11)
[2022-04-28] MEDS: MINERAL OIL/PET HY-PHL TOPICAL OINTMENT 454 GM JAR TP SCH ×2 (09:11→21:53)
[2022-04-28] MEDS ORDERED: PIPERACILLIN/TAZOB 3.375 GM 3.375 GM in DEXTROSE 5%-WATER - 50 ML IVPB SCH ×3 (12:30→13:15)
[2022-04-28] MEDS ORDERED: VANCOMYCIN/WATER FOR INJ (PEG) 1 GM/200 ML BAG IVPB SCH (12:30)
[2022-04-28] MEDS ORDERED: PIPERACILLIN/TAZOB 2.25 GM 2.25 GM in DEXTROSE 5%-WATER - 50 ML IVPB SCH (13:00)
[2022-04-28] MEDS: VANCOMYCIN/WATER FOR INJ (PEG) 1 GM/200 ML BAG IVPB SCH (13:25)
[2022-04-28] MEDS: ALBUTEROL SO4 2.5/IPRATROPIUM 0.5 INH SOL 3 ML VIAL.NEB. NEB SCH ×3 (13:30→20:04)
[2022-04-28 14:23] LABS: ARTERIAL BLD GAS O2 SATURATION 98.4 % (95-98); ARTERIAL BLOOD GAS BASE EXCESS -5.8 mmol/L (-2-2); ARTERIAL BLOOD GAS PO2 120.8 mmHg (80-100)
[2022-04-28 14:24] LABS: ALLENS TEST POSITIVE
[2022-04-28 14:25] LABS: VENT MODE A/C; VENT RATE 14
[2022-04-28] MEDS: PIPERACILLIN/TAZOB 2.25 GM 2.25 GM in DEXTROSE 5%-WATER - 50 ML IVPB SCH ×2 (15:45→21:53)
[2022-04-28 17:21] LABS: HEMATOCRIT 21.8 % (32.4-45.2); HEMOGLOBIN 7.3 GM/dL (10.7-15.3); MCH 28.9 pg (25.7-33.7); MCHC 33.4 g/dl (32.0-36.0); MEAN CELL VOLUME 86.7 fl (80-96); MEAN PLT VOLUME 11.6 fl (7.5-11.1); PLATELET COUNT 56 10^3/uL (134-434); RBC 2.52 M/mm3 (3.60-5.2); RDW 17.2 % (11.6-15.6); WHITE BLOOD COUNT 5.9 K/mm3 (4.0-10.0)
[2022-04-28 17:27] LABS: CHLORIDE 114 mmol/L (98-107); SODIUM 146 mmol/L (136-145)
[2022-04-28 17:30] LABS: ANION GAP 13 MMOL/L (8-16); CO2 19 mmol/L (21-32)
[2022-04-28 17:31] LABS: ALBUMIN 1.9 g/dl (3.4-5.0); GLUCOSE,RANDOM 141 mg/dL (74-106); MAGNESIUM 2.2 mg/dL (1.8-2.4)
[2022-04-28 17:32] LABS: INR 1.06 (0.83-1.09); PROTHROMBIN TIME (PATIENT) 12.2 SEC (9.7-13.0)
[2022-04-28 17:33] LABS: BILIRUBIN,DIRECT 0.1 mg/dL (0.0-0.2); CREATININE 4.5 mg/dL (0.55-1.3); SGOT/AST 33 U/L (15-37); SGPT/ALT 17 U/L (13-61)
[2022-04-28 17:34] LABS: AMYLASE 278 U/L (25-115); PHOSPHOROUS 6.3 mg/dL (2.5-4.9); TOT PROT 4.1 g/dl (6.4-8.2)
[2022-04-28 17:35] LABS: ACTIVATED PTT 28.8 SECONDS (25.2-36.5); BILIRUBIN,TOTAL 0.3 mg/dL (0.2-1); LDH 555 U/L (84-246)
[2022-04-28 17:37] LABS: ALK PHOS 56 U/L (45-117)
[2022-04-28] MEDS: INSULIN SLIDING SCALE (NOVOLOG) 1 VIAL SQ SCH (17:39)
[2022-04-28 17:40] LABS: BLOOD UREA NITROGEN 129.8 mg/dL (7-18); LIPASE 1300 U/L (73-393)
[2022-04-28 17:46] LABS: EPI CELLS >36 /uL (0-25.1); HYALINE CASTS 0 /uL (0-3.1); URINE APPEARANCE CLEAR; URINE BACTERIA 47 /uL (0-1359); URINE BILIRUBIN NEGATIVE (NEGATIVE); URINE COLOR YELLOW; URINE GLUCOSE (UA) NEGATIVE (NEGATIVE); URINE KETONE NEGATIVE (NEGATIVE); URINE LEUK ESTERASE 2+ (NEGATIVE); URINE NITRITE NEGATIVE (NEGATIVE); URINE PROTEIN 2+ (NEGATIVE); URINE RBC 33 /uL (0-23.9); URINE UROBILINOGEN 0.2 mg/dL (0.2-1.0); URINE WBC 101 /uL (0-25.8)
[2022-04-28 18:45] LABS: ARTERIAL BLD GAS O2 SATURATION 99.2 % (95-98); ARTERIAL BLOOD GAS PO2 165.5 mmHg (80-100); ARTERIAL BLOOD GAS pH 7.445 (7.350-7.450)
[2022-04-28 19:10] LABS: YEAST PRESENT (NEGATIVE)
[2022-04-28 21:02] LABS: ALLENS TEST POSITIVE; VENT MODE A/C; VENT RATE 14
[2022-04-28 21:04] LABS: ALLENS TEST POSITIVE
[2022-04-28 21:05] LABS: VENT MODE A/C; VENT RATE 14
[2022-04-28 21:08] LABS: ARTERIAL BLD GAS O2 SATURATION 99.1 % (95-98); ARTERIAL BLOOD GAS BASE EXCESS -6.3 mmol/L (-2-2); ARTERIAL BLOOD GAS PO2 161.1 mmHg (80-100); ARTERIAL BLOOD GAS pH 7.397 (7.350-7.450)
[2022-04-28] MEDS: ROSUVASTATIN CA 10 MG TABLET NGT SCH (21:54)
[2022-04-28] MEDS: CHLORHEXIDINE GLUCONATE 4% CLEANSER FOR DECOLONIZATION TP SCH (21:54)
[2022-04-28 22:54] LABS: HEMATOCRIT 21.3 % (32.4-45.2); MCH 28.2 pg (25.7-33.7); MCHC 32.7 g/dl (32.0-36.0); MEAN CELL VOLUME 86.1 fl (80-96); MEAN PLT VOLUME 9.9 fl (7.5-11.1); PLATELET COUNT 52 10^3/uL (134-434); RBC 2.47 M/mm3 (3.60-5.2); RDW 16.9 % (11.6-15.6); WHITE BLOOD COUNT 5.3 K/mm3 (4.0-10.0)
[2022-04-28 23:09] LABS: CHLORIDE 115 mmol/L (98-107); SODIUM 146 mmol/L (136-145)
[2022-04-28 23:12] LABS: ANION GAP 13 MMOL/L (8-16); CO2 19 mmol/L (21-32); MAGNESIUM 2.3 mg/dL (1.8-2.4)
[2022-04-28 23:14] LABS: ALBUMIN 1.8 g/dl (3.4-5.0); GLUCOSE,RANDOM 115 mg/dL (74-106)
[2022-04-28 23:15] LABS: AMYLASE 276 U/L (25-115); CREATININE 4.5 mg/dL (0.55-1.3); SGPT/ALT 15 U/L (13-61)
[2022-04-28 23:16] LABS: BILIRUBIN,DIRECT 0.1 mg/dL (0.0-0.2); SGOT/AST 34 U/L (15-37)
[2022-04-28 23:17] LABS: PHOSPHOROUS 6.7 mg/dL (2.5-4.9)
[2022-04-28 23:18] LABS: BILIRUBIN,TOTAL 0.3 mg/dL (0.2-1); LDH 535 U/L (84-246)
[2022-04-28 23:19] LABS: ALK PHOS 52 U/L (45-117)
[2022-04-28 23:21] LABS: BLOOD UREA NITROGEN 125.2 mg/dL (7-18); LIPASE 1188 U/L (73-393)
[2022-04-28 23:44] LABS: ANISOCYTOSIS 2+; MACROCYTOSIS 1+; OVALOCYTE 1+
[2022-04-29] MEDS: MYCOPHENOLATE MOFETIL 200 MG/ML SUSPENSION NGT SCH ×2 (01:42→09:45)
[2022-04-29] MEDS: ARTIFICIAL TEARS (POLYVINYL ALCOHOL) OPTH DROPS OU SCH ×9 (01:42→18:01)
[2022-04-29] MEDS: VANCOMYCIN/WATER FOR INJ (PEG) 1 GM/200 ML BAG IVPB SCH (01:48)
[2022-04-29] MEDS: VANCOMYCIN 250 MG/5 ML ORAL SOLUTION NGT SCH ×4 (01:51→18:01)
[2022-04-29 02:38] LABS: HEMATOCRIT 20.4 % (32.4-45.2); MCH 28.5 pg (25.7-33.7); MEAN CELL VOLUME 86.6 fl (80-96); MEAN PLT VOLUME 11.1 fl (7.5-11.1); PLATELET COUNT 59 10^3/uL (134-434); RBC 2.35 M/mm3 (3.60-5.2); RDW 16.9 % (11.6-15.6); WHITE BLOOD COUNT 4.9 K/mm3 (4.0-10.0)
[2022-04-29 02:50] LABS: HEMOGLOBIN 6.7 GM/dL (10.7-15.3)
[2022-04-29 02:51] LABS: ACTIVATED PTT 29.2 SECONDS (25.2-36.5); INR 1.12 (0.83-1.09); PROTHROMBIN TIME (PATIENT) 12.9 SEC (9.7-13.0)
[2022-04-29 03:02] LABS: CHLORIDE 114 mmol/L (98-107); SODIUM 147 mmol/L (136-145)
[2022-04-29 03:04] LABS: ANION GAP 14 MMOL/L (8-16); CO2 19 mmol/L (21-32); MAGNESIUM 2.2 mg/dL (1.8-2.4)
[2022-04-29 03:06] LABS: ALBUMIN 1.8 g/dl (3.4-5.0); GLUCOSE,RANDOM 98 mg/dL (74-106)
[2022-04-29 03:07] LABS: AMYLASE 283 U/L (25-115); CREATININE 4.4 mg/dL (0.55-1.3); SGOT/AST 36 U/L (15-37); SGPT/ALT 13 U/L (13-61)
[2022-04-29 03:08] LABS: BILIRUBIN,DIRECT 0.1 mg/dL (0.0-0.2)
[2022-04-29 03:09] LABS: TOT PROT 3.8 g/dl (6.4-8.2)
[2022-04-29 03:10] LABS: BILIRUBIN,TOTAL 0.3 mg/dL (0.2-1); LDH 503 U/L (84-246)
[2022-04-29 03:11] LABS: ALK PHOS 51 U/L (45-117)
[2022-04-29] MEDS: PIPERACILLIN/TAZOB 2.25 GM 2.25 GM in DEXTROSE 5%-WATER - 50 ML IVPB SCH ×3 (03:11→15:19)
[2022-04-29 03:27] LABS: BLOOD UREA NITROGEN 126.2 mg/dL (7-18); CALCIUM 6.8 mg/dL (8.5-10.1); LIPASE 1243 U/L (73-393)
[2022-04-29 03:34] LABS: ANISOCYTOSIS 2+; MACROCYTOSIS 2+
[2022-04-29 07:19] LABS: ARTERIAL BLD GAS O2 SATURATION 99.1 % (95-98); ARTERIAL BLOOD GAS BASE EXCESS -6.8 mmol/L (-2-2); ARTERIAL BLOOD GAS PO2 166.6 mmHg (80-100); ARTERIAL BLOOD GAS pH 7.389 (7.350-7.450)
[2022-04-29 07:20] LABS: VENT MODE A/C; VENT RATE 14
[2022-04-29] MEDS: INSULIN SLIDING SCALE (NOVOLOG) 1 VIAL SQ SCH ×3 (07:20→18:01)
[2022-04-29] MEDS: BANATROL PLUS POWDER PACKET PO SCH ×2 (07:20→13:31)
[2022-04-29] MEDS: ALBUTEROL SO4 2.5/IPRATROPIUM 0.5 INH SOL 3 ML VIAL.NEB. NEB SCH ×3 (07:58→15:47)
[2022-04-29] MEDS: AMINO ACIDS/PROTEIN HYDROLYS 30 ML LIQUID.PKT GT SCH (09:44)
[2022-04-29] MEDS: predniSONE 10 MG TABLET (UD) GT SCH (09:45)
[2022-04-29] MEDS: MINERAL OIL/PET HY-PHL TOPICAL OINTMENT 454 GM JAR TP SCH (09:45)
[2022-04-29] MEDS: ASCORBIC ACID 500 MG/5 ML UNIT DOSE CUP GT SCH (09:46)
[2022-04-29] MEDS: PANTOPRAZOLE SODIUM 40 MG VIAL IVPUSH SCH (09:46)
[2022-04-29] MEDS: FOLIC ACID 1 MG TABLET (FP) GT SCH (09:46)
[2022-04-29] MEDS: NYSTATIN POWDER 100,000 UNITS/GM - 15 GM TOPICAL POWDER TP SCH (09:46)
[2022-04-29] MEDS ORDERED: FUROSEMIDE 40 MG/4 ML INJECTABLE VIAL IVPUSH SCH (10:00)
[2022-04-29 11:16] LABS: BASO % 0.1 % (0-2.0); EOS % 0.8 % (0-4.5); LYMPH % 6.8 % (8-40); MCH 27.9 pg (25.7-33.7); MEAN CELL VOLUME 87.4 fl (80-96); MEAN PLT VOLUME 10.4 fl (7.5-11.1); MONO % 7.4 % (3.8-10.2); NEUT % 84.9 % (42.8-82.8); PLATELET COUNT 61 10^3/uL (134-434); RBC 2.29 M/mm3 (3.60-5.2); RDW 17.4 % (11.6-15.6); WHITE BLOOD COUNT 4.5 K/mm3 (4.0-10.0)
[2022-04-29 11:23] LABS: HEMOGLOBIN 6.4 GM/dL (10.7-15.3)
[2022-04-29 11:33] LABS: CHLORIDE 114 mmol/L (98-107); SODIUM 146 mmol/L (136-145)
[2022-04-29 11:35] LABS: ANION GAP 14 MMOL/L (8-16); CALCIUM 7.1 mg/dL (8.5-10.1); CO2 19 mmol/L (21-32); LIPASE 1134 U/L (73-393); MAGNESIUM 2.3 mg/dL (1.8-2.4)
[2022-04-29 11:36] LABS: ALBUMIN 1.8 g/dl (3.4-5.0)
[2022-04-29 11:37] LABS: AMYLASE 267 U/L (25-115); GLUCOSE,RANDOM 119 mg/dL (74-106)
[2022-04-29 11:38] LABS: BILIRUBIN,DIRECT 0.1 mg/dL (0.0-0.2); CREATININE 4.5 mg/dL (0.55-1.3); SGOT/AST 32 U/L (15-37); SGPT/ALT 14 U/L (13-61)
[2022-04-29 11:39] LABS: ACTIVATED PTT 29.4 SECONDS (25.2-36.5); INR 1.07 (0.83-1.09); PHOSPHOROUS 7.4 mg/dL (2.5-4.9); PROTHROMBIN TIME (PATIENT) 12.3 SEC (9.7-13.0)
[2022-04-29 11:40] LABS: LDH 497 U/L (84-246); TOT PROT 3.8 g/dl (6.4-8.2)
[2022-04-29 11:41] LABS: BILIRUBIN,TOTAL 0.3 mg/dL (0.2-1)
[2022-04-29 11:42] LABS: ALK PHOS 49 U/L (45-117)
[2022-04-29 12:01] LABS: EPI CELLS >36 /uL (0-25.1); HYALINE CASTS 4 /uL (0-3.1); URINE APPEARANCE CLOUDY; URINE BACTERIA 95 /uL (0-1359); URINE BILIRUBIN NEGATIVE (NEGATIVE); URINE COLOR YELLOW; URINE GLUCOSE (UA) NEGATIVE (NEGATIVE); URINE KETONE NEGATIVE (NEGATIVE); URINE LEUK ESTERASE 2+ (NEGATIVE); URINE NITRITE NEGATIVE (NEGATIVE); URINE PROTEIN 1+ (NEGATIVE); URINE UROBILINOGEN 0.2 mg/dL (0.2-1.0); URINE WBC 254 /uL (0-25.8)
[2022-04-29 12:20] LABS: URINE RBC 37 /uL (0-23.9)
[2022-04-29 13:51] LABS: ARTERIAL BLD GAS O2 SATURATION 98.1 % (95-98); ARTERIAL BLOOD GAS PO2 107.8 mmHg (80-100); ARTERIAL BLOOD GAS pH 7.405 (7.350-7.450)
[2022-04-29 13:52] LABS: VENT MODE A/C; VENT RATE 14
[2022-04-29 18:11] VITALS: TEMP 97.1
[2022-04-29] MEDS ORDERED: morphine SULFATE 4 MG/ML VIAL IVPUSH ONE (18:23)
[2022-04-29] MEDS ORDERED: LORazepam 2 MG/ML SDV VIAL IVPUSH PRN (18:25)
[2022-04-29] MEDS ORDERED: MORPHINE SULFATE/0.9% NACL/PF 100 MG/100 ML BAG IVPB SCH (18:30)
[2022-04-29] MEDS ORDERED: LORazepam 2 MG/ML SDV VIAL IVPUSH ONE (19:15)
[2022-04-29 20:31] VITALS: BP 55/41; PULSE 99; RESP 5
== END 2022-04-29 19:30 | disposition expired | DRG 130 ==
LOC: JER 18:25 → JERBED 21:45 → JICU 03-31 15:46 → J4W 04-03 23:59 → J7W 04-06 15:50 → J8W 04-08 17:10 → JICU 04-18 19:43
PROVIDERS: ADMIT Internal Medicine; ATTEND Internal Medicine
PROC: 30233N1 Transfusion of Nonautologous Red Blood Cells into Peripheral Vein, Percutaneous Approach (ICD-10-PCS; 2022-04-01)
PROC: 0DJD8ZZ Inspection of Lower Intestinal Tract, Via Natural or Artificial Opening Endoscopic (ICD-10-PCS; 2022-04-14)
PROC: 0W3P8ZZ Control Bleeding in Gastrointestinal Tract, Via Natural or Artificial Opening Endoscopic (ICD-10-PCS; 2022-04-14)
PROC: 0BH17EZ Insertion of Endotracheal Airway into Trachea, Via Natural or Artificial Opening (ICD-10-PCS; principal; 2022-04-18)
PROC: 5A1955Z Respiratory Ventilation, Greater than 96 Consecutive Hours (ICD-10-PCS; 2022-04-18)
PROC: 5A12012 Performance of Cardiac Output, Single, Manual (ICD-10-PCS; 2022-04-18)
PROC: 05HB33Z Insertion of Infusion Device into Right Basilic Vein, Percutaneous Approach (ICD-10-PCS; 2022-04-24)
PROC: B54MZZA Ultrasonography of Right Upper Extremity Veins, Guidance (ICD-10-PCS; 2022-04-24)
PROC: 4A133B1 Monitoring of Arterial Pressure, Peripheral, Percutaneous Approach (ICD-10-PCS; 2022-04-28)
PROC: 4A133J1 Monitoring of Arterial Pulse, Peripheral, Percutaneous Approach (ICD-10-PCS; 2022-04-28)
DX: J69.0 Pneumonitis due to inhalation of food and vomit (principal); D68.61 Antiphospholipid syndrome; I10 Essential (primary) hypertension; G70.80 Lambert-Eaton syndrome, unspecified; E83.42 Hypomagnesemia; M32.9 Systemic lupus erythematosus, unspecified; R50.9 Fever, unspecified; R00.0 Tachycardia, unspecified; I31.39 Other pericardial effusion (noninflammatory); I08.1 Rheumatic disorders of both mitral and tricuspid valves; I24.8 Other forms of acute ischemic heart disease; N17.9 Acute kidney failure, unspecified; I63.89 Other cerebral infarction; G40.409 Other generalized epilepsy and epileptic syndromes, not intractable, without status epilepticus; J96.01 Acute respiratory failure with hypoxia; N39.0 Urinary tract infection, site not specified; I13.0 Hypertensive heart and chronic kidney disease with heart failure and stage 1 through stage 4 chronic kidney disease, or unspecified chronic kidney disease; N18.9 Chronic kidney disease, unspecified; A04.72 Enterocolitis due to Clostridium difficile, not specified as recurrent; I50.33 Acute on chronic diastolic (congestive) heart failure; A41.89 Other specified sepsis; R19.7 Diarrhea, unspecified; E87.70 Fluid overload, unspecified; K92.2 Gastrointestinal hemorrhage, unspecified; I99.8 Other disorder of circulatory system; G93.1 Anoxic brain damage, not elsewhere classified; K64.8 Other hemorrhoids; K26.9 Duodenal ulcer, unspecified as acute or chronic, without hemorrhage or perforation; D69.6 Thrombocytopenia, unspecified; E78.5 Hyperlipidemia, unspecified; R79.89 Other specified abnormal findings of blood chemistry; Z86.718 Personal history of other venous thrombosis and embolism; R77.8 Other specified abnormalities of plasma proteins; Z91.14 Patient's other noncompliance with medication regimen; I46.9 Cardiac arrest, cause unspecified; K31.5 Obstruction of duodenum; K31.811 Angiodysplasia of stomach and duodenum with bleeding; D50.0 Iron deficiency anemia secondary to blood loss (chronic)
CPT/HCPCS: 0241U-QW; 36415; 36430; 36600; 70450-TC; 70551-TC; 71045-TC-FY; 71250-TC; 74176-TC; 76700-TC; 80048; 80053; 80061; 80076; 80307; 81003; 81025; 82150; 82248; 82272; 82306; 82550; 82553; 82607; 82656; 82710; 82746; 82803; 82962; 83036; 83605; 83615; 83690; 83735; 83880; 84100; 84446; 84484; 84590; 84702; 85025; 85027; 85379; 85384; 85610; 85730; 86022; 86850; 86900; 86901; 86922; 87040; 87045; 87046; 87070; 87086; 87186; 87205; 87324; 87449; 87493; 88305-TC; 93005; 93010; 93306-TC; 93970-TC; 94002; 94640; 94660; 95816; 97116-GP; 97161-GP; 99291; C9803-CS; J7517; P9058; U0003; U0005